=== PATIENT | male | born 1970 | race Two or more races ===

== ENCOUNTER 2017-04-04 11:49 | Emergency (ER) | payer MEDICARE ==
[2017-04-04] MEDS ORDERED: Calcium Gluconate INJ* 2 GM in NS 0.9% 100 ML* 100 ML IVPB ONE (12:10)
[2017-04-04] MEDS ORDERED: NS 0.9% 250 ML* 250 ML IV ONE ×2 (12:10→12:24)
[2017-04-04 12:20] LABS: ABS Basophils 0.1 10^3/ul (0-0.2); ABS Eosinophils 0.1 10^3/ul (0-0.6); ABS Lymphocytes 1.4 10^3/ul (1.0-4.8); ABS Neutrophils 8.8 10^3/ul (1.5-7.7); ABS Nucleated RBC 0.2 10^3/ul; Eosinophil % 1.2 % (0-6); Hematocrit 45 % (42-52); Lymphocyte % 12.3 % (25-47); Mean Corpuscular HGB Conc 34 g/dl (31-36); Mean Corpuscular Hemoglobin 30 pg (27-31); Mean Corpuscular Volume 91 fL (80-94); Mean Platelet Volume 10 um3 (7.4-10.4); Nucleated Red Blood Cells % 1.5; Platelet Count 399 10^3/ul (150-450); Red Blood Count 4.94 10^6/ul (4.0-5.4); Red Cell Distribution Width 19 % (10.5-15); White Blood Count 11.5 10^3/ul (3.5-10.8)
[2017-04-04] MEDS: Albuterol 2.5 MG/3 ML NEB.SOL* (0.083%) INH SCH ×2 (12:24→12:25)
[2017-04-04 12:31] LABS: EGFR Non-African American 6.3 (>60)
--- NOTE | 2017-04-04 13:04 | RAD ---
Indication: Weakness, altered mental status. Jaundice. Suspected sepsis. Comparison: No relevant prior exams available on the [facility] PACS for comparison. Technique: Noncontrast CT vertex of skull through foramen magnum. Report: Infiltrative RIGHT parietal scalp hematoma at the vertex. The sulci, ventricles, and basal cisterns are normal for age. Argueta matter white matter differentiation is preserved without evidence for edema. No intra or extra axial hemorrhage is detected. Unremarkable visualized orbital contents. Negative for calvarial or skull base fracture. The visualized paranasal sinuses and mastoid air spaces are clear. IMPRESSION: 1. Small infiltrative RIGHT parietal scalp hematoma. 2. Negative for calvarial or skull base fracture or CT evidence for traumatic brain injury. 3. No acute intracranial process evident.
--- NOTE | 2017-04-04 13:29 | RAD ---
CLINICAL HISTORY: Jaundice, sepsis COMPARISON: None TECHNIQUE: Multiple contiguous axial CT scans were obtained of the abdomen and pelvis, without intravenous contrast enhancement. Coronal and sagittal multiplanar reformations are submitted for review. Oral contrast was not administered. FINDINGS: The study is limited by the lack of intravenous contrast. This limits evaluation of the solid organs and vasculature. LUNG BASES: The lung bases are clear. LIVER: The liver is homogeneously enlarged. BILE DUCTS: There is no intrahepatic or extrahepatic biliary dilatation. GALLBLADDER: The gallbladder is normal, without pericholecystic inflammatory change. PANCREAS: The pancreas is normal, without mass or ductal dilatation. SPLEEN: Normal in size and appearance. UPPER GI TRACT: Evaluation of the gastrointestinal tract is limited by incomplete gastric distention. The upper GI tract is unremarkable. SMALL BOWEL AND MESENTERY: The small bowel is normal in contour, course, and caliber. There is no obstruction or dilatation. COLON: The colon is normal in contour, course, caliber. There is no pericolonic inflammatory change. ADRENALS: Normal bilaterally. KIDNEYS: The kidneys are atrophic with vascular calcifications. BLADDER: The bladder is collapsed. There is diffuse bladder wall thickening. This may be artifactually accentuated by incomplete distention of the bladder. PELVIC ORGANS: The prostate gland is normal. The seminal vesicles are symmetric. AORTA: There is calcific atherosclerotic disease of the abdominal aorta and its branches, without aneurysmal dilatation IVC: Unremarkable LYMPH NODES: There is no lymphadenopathy by size criteria. ABDOMINAL WALL: There is diffuse subcutaneous edema. BONES AND SOFT TISSUES: There are mild diffuse degenerative changes. OTHER: There is a moderate amount of ascites IMPRESSION: 1. HEPATOMEGALY. 2. ASCITES. 3. DIFFUSE SUBCUTANEOUS EDEMA. 4. BLADDER WALL THICKENING WHICH MAY BE ARTIFACTUALLY ACCENTUATED BY INCOMPLETE DISTENTION OF THE BLADDER. 5. ATHEROSCLEROSIS.
--- NOTE | 2017-04-04 13:47 | RAD ---
HISTORY: Jaundice, sepsis COMPARISONS: CT dated April 04, 2012 TECHNIQUE: Multiple transverse and longitudinal ultrasound images were obtained of the right upper quadrant of the abdomen using grayscale, color Doppler, and spectral Doppler imaging. FINDINGS: LIVER: The liver is homogeneously enlarged measuring 20 cm in long axis. There are no focal hepatic parenchymal masses. There is bidirectional flow within the hepatic veins. There is bidirectional pulsatile flow within the main portal vein. BILIARY TREE: There is no intrahepatic or extrahepatic biliary dilatation. The common duct measures 0.4 cm. GALLBLADDER: There are small nonshadowing echogenic foci consistent with that are polyps measuring up to 0.3 cm in size. There is no sonographic Schofield sign. PANCREAS: The head of the pancreas is unremarkable. The tail of the pancreas is not well visualized secondary to overlying bowel gas. RIGHT KIDNEY: The right kidney is atrophic. There is no hydronephrosis or nephrolithiasis. The right kidney measures 8.7 x 5.1 x 45.2 cm. AORTA AND IVC: The aorta and IVC are unremarkable. FLUID: There is a moderate amount ascites. OTHER FINDINGS: None. IMPRESSION: 1. HEPATOMEGALY. 2. THERE IS BIDIRECTIONAL FLOW WITHIN THE PORTAL WHICH MAY INDICATE EARLY PORTAL HYPERTENSION. 3. MODERATE ASCITES. 4. ATROPHIC RIGHT KIDNEY.
[2017-04-04] MEDS ORDERED: Piperacillin/Tazobac ADVAN(*) 3.375 GM in NS 0.9% 100 ML* 100 ML IVPB ONE (14:00)
--- NOTE | 2017-04-04 14:35 | ED ---
Ginna Wolfe Julia, scribed for Aidan Drummond MD on 04/04/17 at 1220 . Complex/Multi-Sys Presentation - HPI Summary HPI Summary: This patient is a 46 year old M BIBA to [facility] with a chief complaint of fatigue and weakness post dialysis this morning. Patient reports diarrhea,vomiting, and leg spasms. Patient denies abdominal and chest pain. Patient has been recently ill with influenza symptoms for the past few days. Patient states that he is not normally jaundiced. - History Of Current Complaint Time Seen by Provider: 04/04/17 11:56 Hx Obtained From: Patient Onset/Duration: Lasting Hours Timing: Constant Associated Signs And Symptoms: Positive: Other - fatigue, diarrhea, and vomiting , and leg spasms Related History: Recent Illness - Allergies/Home Medications Allergies/Adverse Reactions: Allergies Allergy/AdvReac Type Severity Reaction Status Date / Time Doxercalciferol Allergy Airway Verified 10/31/15 07:02 [From Hectorol] Obstruction Ethanol [From Hectorol] Allergy Airway Verified 10/31/15 07:02 Obstruction Morphine Allergy Nausea And Verified 10/31/15 07:01 Vomiting Red Dye [From Hectorol] Allergy Airway Verified 10/31/15 07:02 Obstruction Yellow Dye [From Hectorol] Allergy Airway Verified 10/31/15 07:02 Obstruction Home Medications: Home Medications B-Complex W/ C-Zn & Folic Acid [Dialyvite 800/Zinc] 1 tab PO DAILY 04/04/17 [ History Confirmed 04/04/17] Calcitriol CAP* [Rocaltrol CAP*] 0.75 mcg PO DAILY 04/04/17 [History Confirmed 04/04/17] Cinacalcet TAB* [Sensipar TAB*] 90 mg PO DAILY 04/04/17 [History Confirmed 04/04] Ferric Citrate TAB(NF) 420 mg PO AC 04/04/17 [History Confirmed 04/04/17] Insulin GLARGINE(*) [Lantus(*)] 10 units SUBCUT QAM 04/04/17 [History Confirmed 04/04/17] Lidocaine/PRILOCAINE* [Emla*] 1 applic TOPICAL ONCE 04/04/17 [History Confirmed 04/04/17] Linagliptin (NF) [Tradjenta (NF)] 5 mg PO DAILY 04/04/17 [History Confirmed 08/15] Metoprolol Tartrate TAB* [Lopressor TAB*] 50 mg PO BID 04/04/17 [History Confirmed 04/04/17] Sevelamer TAB* [Renvela TAB*] 2,400 mg PO AC 04/04/17 [History Confirmed ] Sodium Polystyrene ORAL.BEVERLY* [Kayexalate ORAL.BEVERLY*] 15 gm PO SEE INSTRUCTIONS [History Confirmed 04/04/17] glyBURIDE TAB* [Diabeta TAB*] 1.25 mg PO DAILY 04/04/17 [History Confirmed 04/04] rOPINIRole TAB* [Requip TAB*] 0.5 mg PO BEDTIME 04/04/17 [History Confirmed 08/15] PMH/Surg Hx/FS Hx/Imm Hx Endocrine/Hematology History: Reports: Hx Diabetes Denies: Hx Anticoagulant Therapy, Hx Thyroid Disease Cardiovascular History: Reports: Hx Hypertension, Other Cardiovascular Problems/ Disorders - INSERTION TESIO CATH Denies: Hx Congestive Heart Failure, Hx Deep Vein Thrombosis, Hx Myocardial Infarction, Hx Pacemaker/ICD Respiratory History: Denies: Hx Asthma, Hx Chronic Obstructive Pulmonary Disease (COPD), Hx Lung Cancer, Hx Pneumonia, Hx Pulmonary Embolism GI History: Denies: Hx Gall Bladder Disease, Hx Gastrointestinal Bleed, Hx Ulcer, Hx Urosepsis History: Reports: Hx Renal Disease Denies: Hx Kidney Stones Sensory History: Reports: Hx Contacts or Glasses Opthamlomology History: Reports: Hx Contacts or Glasses Neurological History: Denies: Hx Dementia, Hx Migraine, Hx Seizures, Hx Transient Ischemic Attacks (TIA) Psychiatric History: Denies: Hx Anxiety, Hx Depression, Hx Schizophrenia, Hx Bipolar Disorder - Surgical History Surgery Procedure, Year, and Place: Groin surgery for "bacteria" - Family History Known Family History: Positive: Hypertension, Diabetes - Social History Alcohol Use: Rare Substance Use Type: Reports: None Hx Tobacco Use: Yes Smoking Status (MU): Current Every Day Smoker Type: Cigarettes Amount Used/How Often: 6/day Length of Time of Smoking/Using Tobacco: 20 years Review of Systems Positive: Fatigue - generalized weakness. Negative: Fever, Chills Negative: Erythema Negative: Sore Throat Negative: Chest Pain Negative: Shortness Of Breath, Cough Positive: Vomiting, Diarrhea. Negative: Abdominal Pain, Nausea Negative: dysuria, hematuria Positive: Other - leg spasms. Negative: Myalgia, Edema Negative: Rash Neurological: Other - negative - dizziness All Other Systems Reviewed And Are Negative: Yes Physical Exam - Summary Physical Exam Summary: Constitutional: Well-developed, Well-nourished, Alert. (-) Distressed Skin: Warm, Dry HENT: Normocephalic; Atraumatic Eyes: scleral icterus Neck: Musculoskeletal ROM normal neck. (-) JVD, (-) Stridor, (-) Tracheal deviation Cardio: Rhythm regular, rate normal, Heart sounds normal; Intact distal pulses; The pedal pulses are 2+ and symmetric. Radial pulses are 2+ and symmetric. (-) Murmur Pulmonary/Chest wall: Effort normal. (-) Respiratory distress, (-) Wheezes, (-) Rales Abd: Soft, (-) Tenderness, (-) Distension, (-) Guarding, (-) Rebound Musculoskeletal: (-) Edema Lymph: (-) Cervical adenopathy Neuro: Alert, Oriented x3 Psych: Mood and affect normal, sluggish response Triage Information Reviewed: Yes Vital Signs On Initial Exam: Initial Vitals BP 88/71 04/04/17 12:00 Vital Signs Reviewed: Yes Diagnostics - Vital Signs Vital Signs Temp Pulse Resp BP Pulse Ox 04/04/17 12:10 35.8 C 52 15 88/71 98 04/04/17 12:01 52 21 94 04/04/17 12:00 - Laboratory Lab Results: Lab Results 04/04/17 04/04/17 04/04/17 Range/Units 12:07 12:07 12:07 WBC 11.5 H (3.5-10.8) 10^3/ul RBC 4.94 (4.0-5.4) 10^6/ul Hgb 15.0 (14.0-18.0) g/dl Hct 45 (42-52) % MCV 91 (80-94) fL MCH 30 (27-31) pg MCHC 34 (31-36) g/dl RDW 19 H (10.5-15) % Plt Count 399 (150-450) 10^3/ul MPV 10 (7.4-10.4) um3 Neut % (Auto) 76.7 (38-83) % Lymph % (Auto) 12.3 L (25-47) % Freeborn % (Auto) 9.1 H (1-9) % Eos % (Auto) 1.2 (0-6) % Baso % (Auto) 0.7 (0-2) % Absolute Neuts (auto) 8.8 H (1.5-7.7) 10^3/ul Absolute Lymphs (auto) 1.4 (1.0-4.8) 10^3/ul Absolute Monos (auto) 1.0 H (0-0.8) 10^3/ul Absolute Eos (auto) 0.1 (0-0.6) 10^3/ul Absolute Basos (auto) 0.1 (0-0.2) 10^3/ul Absolute Nucleated RBC 0.2 10^3/ul Nucleated RBC % 1.5 VBG pH (7.33-7.43) VBG pCO2 (41-51) mmHg VBG pO2 (35-45) mmHg VBG HCO3 (24-28) mmol/L VBG O2 Saturation (70-80) % VBG Base Excess (0-4) Sodium 131 L (133-145) mmol/L Potassium 5.6 H (3.5-5.0) mmol/L Chloride 85 L (101-111) mmol/L Carbon Dioxide 26 (22-32) mmol/L Anion Gap 20 H (2-11) mmol/L BUN 84 H (6-24) mg/dL Creatinine 9.12 H (0.67-1.17) mg/dL Est GFR ( Amer) 8.1 (>60) Est GFR (Non-Af Amer) 6.3 (>60) BUN/Creatinine Ratio 9.2 (8-20) Glucose 127 H (70-100) mg/dL POC Glucose (mg/dL) (70-100) mg/dL Lactic Acid 1.4 (0.5-2.0) mmol/L Calcium 8.4 L (8.6-10.3) mg/dL Magnesium Pending Total Bilirubin 11.80 H (0.2-1.0) mg/dL AST 47 H (13-39) U/L ALT 39 (7-52) U/L Alkaline Phosphatase 115 H (34-104) U/L Troponin I 0.14 H* (<0.04) ng/mL C-Reactive Protein 159.26 H (< 5.00) mg/L Total Protein 8.1 (6.4-8.9) g/dL Albumin 3.3 (3.2-5.2) g/dL Globulin 4.8 H (2-4) g/dL Albumin/Globulin Ratio 0.7 L (1-3) TSH 5.24 (0.34-5.60) mcIU/mL Salicylates Pending Acetaminophen Pending Serum Alcohol < 10 (<10) mg/dL Influenza A (Rapid) (Negative) Influenza B (Rapid) (Negative) 04/04/17 04/04/17 04/04/17 Range/Units 12:30 12:33 14:06 WBC (3.5-10.8) 10^3/ul RBC (4.0-5.4) 10^6/ul Hgb (14.0-18.0) g/dl Hct (42-52) % MCV (80-94) fL MCH (27-31) pg MCHC (31-36) g/dl RDW (10.5-15) % Plt Count (150-450) 10^3/ul MPV (7.4-10.4) um3 Neut % (Auto) (38-83) % Lymph % (Auto) (25-47) % Freeborn % (Auto) (1-9) % Eos % (Auto) (0-6) % Baso % (Auto) (0-2) % Absolute Neuts (auto) (1.5-7.7) 10^3/ul Absolute Lymphs (auto) (1.0-4.8) 10^3/ul Absolute Monos (auto) (0-0.8) 10^3/ul Absolute Eos (auto) (0-0.6) 10^3/ul Absolute Basos (auto) (0-0.2) 10^3/ul Absolute Nucleated RBC 10^3/ul Nucleated RBC % VBG pH 7.37 (7.33-7.43) VBG pCO2 47 (41-51) mmHg VBG pO2 32 L (35-45) mmHg VBG HCO3 24.7 (24-28) mmol/L VBG O2 Saturation 60.1 L (70-80) % VBG Base Excess 1.2 (0-4) Sodium (133-145) mmol/L Potassium (3.5-5.0) mmol/L Chloride (101-111) mmol/L Carbon Dioxide (22-32) mmol/L Anion Gap (2-11) mmol/L BUN (6-24) mg/dL Creatinine (0.67-1.17) mg/dL Est GFR ( Amer) (>60) Est GFR (Non-Af Amer) (>60) BUN/Creatinine Ratio (8-20) Glucose (70-100) mg/dL POC Glucose (mg/dL) 174 H (70-100) mg/dL Lactic Acid (0.5-2.0) mmol/L Calcium (8.6-10.3) mg/dL Magnesium Total Bilirubin (0.2-1.0) mg/dL AST (13-39) U/L ALT (7-52) U/L Alkaline Phosphatase (34-104) U/L Troponin I (<0.04) ng/mL C-Reactive Protein (< 5.00) mg/L Total Protein (6.4-8.9) g/dL Albumin (3.2-5.2) g/dL Globulin (2-4) g/dL Albumin/Globulin Ratio (1-3) TSH (0.34-5.60) mcIU/mL Salicylates Acetaminophen Serum Alcohol (<10) mg/dL Influenza A (Rapid) Negative (Negative) Influenza B (Rapid) Negative (Negative) Result Diagrams: 04/04/17 12:07 04/04/17 12:07 Lab Statement: Any lab studies that have been ordered have been reviewed, and results considered in the medical decision making process. - CT Brain CT Interpretation Completed By: Radiologist - 1. Small infiltrative RIGHT parietal scalp hematoma. 2. Negative for calvarial or skull base fracture or CT evidence for traumatic brain injury. 3. No acute intracranial process evident. ED Physician has reviewed this report. A/P CT Interpretation Completed By: Radiologist - 1. HEPATOMEGALY. 2. ASCITES. 3. DIFFUSE SUBCUTANEOUS EDEMA. 4. BLADDER WALL THICKENING WHICH MAY BE ARTIFACTUALLY ACCENTUATED BY INCOMPLETE DISTENTION OF THE BLADDER. 5. ATHEROSCLEROSIS. ED Physician has reviewed this report. - EKG 11:36 Cardiac Rate: NL, Bradycardia EKG Rhythm: Sinus Bradycardia - at 53 BPM EKG Interpretation: reveals no STEMI present - Additional Comments Diagnostic Additional Comments: Gallbladder US reveals: 1. HEPATOMEGALY. 2. THERE IS BIDIRECTIONAL FLOW WITHIN THE PORTAL WHICH MAY INDICATE EARLY PORTAL HYPERTENSION. 3. MODERATE ASCITES. 4. ATROPHIC RIGHT KIDNEY. ED Physician has reviewed this report. Re-Evaluation - Re-Evaluation 1st Re-Evaluation Time: 13:36 Comment: Patients potassiums levels were reviewed, revealing a 5.3 at 11:00 during dialysis. Complex Multi-Symp Course/Dx Assessment/Plan: Patient care with Dr. Garcia, research professional, was discussed at 13:55 . They are unavailable for ERCP until 04/06/17 they suggest transfer to [facility] for ERCP. Patient care with Dr. Zabala, internal medicine at [facility], was discussed at 14:19. They are accepting this patient. No real tenderness, but given the altered mental status, elevated white count, and significant jaundice I am considering sepsis/cholangitis as a leading diagnosis. Responded well to [address] Triplett involved by teleconference regarding fluids and workup and management plan. - Diagnoses Provider Diagnoses: Altered mental status, Sepsis, Obstructive jaundice, Cholangitis - Physician Notifications Instructed by Provider To: Transfer - Critical Care Time Critical Care Time: 75-104 min - 100 minutes Discharge - Discharge Plan Condition: Fair Disposition: TRANS HIGHER LVL OF CARE FAC Referrals: Tru Mancini MD [Primary Care Provider] - The documentation as recorded by the Ginna crawford Julia accurately reflects the service I personally performed and the decisions made by me, Aidan Drummond MD.
[2017-04-04 19:53] VITALS: BP 00/0
--- NOTE | 2017-04-04 22:16 | ED ---
Ginna Wolfe Julia, scribed for Aidan Drummond MD on 04/04/17 at 1649 . Re-Evaluation - Re-Evaluation 1st Re-Evaluation Time: 13:36 Comment: Patients potassiums levels were reviewed, revealing a 5.3 at 11:00 during dialysis. 2nd Re-Evaluation Time: 16:45 Change: Unchanged Comment: Patient's abdomen is non-tender. Patient is answering questions Course/Dx - Diagnoses Provider Diagnoses: Altered mental status, Sepsis, Obstructive jaundice, Cholangitis - Provider Notifications Instructed by Provider To: Transfer - Critical Care Time Critical Care Time: 75-104 min - 100 minutes The documentation as recorded by the tonyibGinna york Julia accurately reflects the service I personally performed and the decisions made by , Aidan Drummond MD.
== END 2017-04-04 19:21 | disposition short-term general hospital (02) ==
LOC: ED 11:49
DX: R41.82 Altered mental status, unspecified (principal); A41.9 Sepsis, unspecified organism; K83.1 Obstruction of bile duct; K83.0 Cholangitis
CPT/HCPCS: 36415; 70450; 74176; 76705; 80053; 80320; 80329; 82140; 82803; 83605; 83735; 84443; 84484; 85025; 86140; 87040; 87502; 93005; 96365; 99285; G0480; J0610; J2543

== ENCOUNTER 2017-08-07 13:19 | Emergency (ER) | payer MEDICARE ==
[2017-08-07 14:42] VITALS: BP 172/91
== END 2017-08-07 16:02 | disposition left against medical advice (07) ==
LOC: ED 13:19
DX: Z53.21 Procedure and treatment not carried out due to patient leaving prior to being seen by health care provider (principal)

== ENCOUNTER 2018-02-24 13:08 | Emergency (ER) | payer MEDICARE ==
[2018-02-24] MEDS ORDERED: Tranexamic Acid 1,000 MG/10 ML SDV IV ONE (14:03)
[2018-02-24] MEDS ORDERED: Thrombin 20,000 UNITS* KIT - spray for topical use - TOPICAL ONE (15:01)
--- NOTE | 2018-02-24 15:17 | ED ---
Skin Complaint - HPI Summary HPI Summary: 47 year old man was referred to ED by dialysis center to assess bleeding at the dialysis AV fistula site after completing dialysis yesterday. Patient states yesterday after completing dialysis he had to apply 30 minutes of pressure to the area to slow the bleeding. Later yesterday evening the bleeding became worse and he states it has since been constantly "oozing." Patient states that regardless of pressure dressing he is unable to get the bleeding to stop. Patient was given a clamp from the dialysis center and told to follow up here. Patient is currently on anticoagulant therapy. Patient denies N/V, dizziness, weakness, numbness, or tingling. - History of Current Complaint Chief Complaint: EDGeneral Time Seen by Provider: 02/24/18 13:22 Stated Complaint: RIGHT ARM BLEEDNG Hx Obtained From: Patient Onset/Duration: Started Days Ago Timing: Lasting Days Onset Severity: Mild Current Severity: Mild Pain Intensity: 0 Pain Scale Used: 0-10 Numeric Skin Location: Discrete Aggravating Symptom(s): Nothing Alleviating Symptom(s): Nothing Associated Signs & Symptoms: Negative Related History: Diabetes, Other: - dialysis yesterday, anticoagulant therapy. - Additional Pertinent History Primary Care Physician: [id number] - Allergy/Home Medications Allergies/Adverse Reactions: Allergies Allergy/AdvReac Type Severity Reaction Status Date / Time doxercalciferol Allergy Airway Verified 02/24/18 15:38 Obstruction ethyl alcohol Allergy Airway Verified 02/24/18 15:38 Obstruction morphine Allergy Nausea And Verified 02/24/18 15:38 Vomiting red dye Allergy Airway Verified 02/24/18 15:38 Obstruction yellow dye Allergy Airway Verified 02/24/18 15:38 Obstruction PMH/Surg Hx/FS Hx/Imm Hx Endocrine/Hematology History: Reports: Hx Diabetes Denies: Hx Anticoagulant Therapy, Hx Thyroid Disease Cardiovascular History: Reports: Hx Hypertension, Other Cardiovascular Problems/ Disorders - INSERTION TESIO CATH Denies: Hx Congestive Heart Failure, Hx Deep Vein Thrombosis, Hx Myocardial Infarction, Hx Pacemaker/ICD Respiratory History: Denies: Hx Asthma, Hx Chronic Obstructive Pulmonary Disease (COPD), Hx Lung Cancer, Hx Pneumonia, Hx Pulmonary Embolism GI History: Denies: Hx Gall Bladder Disease, Hx Gastrointestinal Bleed, Hx Ulcer, Hx Urosepsis History: Reports: Hx Renal Disease Denies: Hx Kidney Stones Sensory History: Reports: Hx Contacts or Glasses Opthamlomology History: Reports: Hx Contacts or Glasses Neurological History: Denies: Hx Dementia, Hx Migraine, Hx Seizures, Hx Transient Ischemic Attacks (TIA) Psychiatric History: Denies: Hx Anxiety, Hx Depression, Hx Schizophrenia, Hx Bipolar Disorder - Surgical History Surgery Procedure, Year, and Place: Groin surgery for "bacteria" Infectious Disease History: No Infectious Disease History: Denies: Traveled Outside the [place] in Last 30 Days - Family History Known Family History: Positive: None, Hypertension, Diabetes - Social History Alcohol Use: Rare Substance Use Type: Reports: None Hx Tobacco Use: Yes Smoking Status (MU): Current Every Day Smoker Type: Cigarettes Amount Used/How Often: 6/day Length of Time of Smoking/Using Tobacco: 20 years Review of Systems Negative: Fever, Chills, Fatigue, Skin Diaphoresis Negative: Palpitations, Chest Pain Negative: Shortness Of Breath Negative: Abdominal Pain, Vomiting, Nausea Genitourinary: Negative Positive: Other - AV fistula bleeding. Neurological: Negative All Other Systems Reviewed And Are Negative: Yes Physical Exam Vital Signs On Initial Exam: Initial Vitals Temp Pulse Resp BP Pulse Ox 97.0 F 75 16 00/00 100 02/24/18 13:11 02/24/18 13:11 02/24/18 13:11 02/24/18 13:11 02/24/18 13:11 Appearance: Positive: No Pain Distress, Ill-Appearing Skin: Positive: Dry, Cold, Other - AV fistula present on the Right upper arm. Small puncture wound present in the fistula that is currently bleeding. Eyes: Positive: JAYLEN ENT: Positive: Hearing grossly normal Neck: Positive: Supple, Nontender Respiratory/Lung Sounds: Positive: Clear to Auscultation, Breath Sounds Present Cardiovascular: Positive: RRR, Pulses are Symmetrical in both Upper and Lower Extremities, Other - capillary refill <2 seconds Abdomen Description: Positive: Nontender, No Organomegaly Bowel Sounds: Positive: Present Neurological: Positive: Other - Sensation in tact in distal upper extremeties. Diagnostics - Vital Signs Vital Signs Temp Pulse Resp BP Pulse Ox 02/24/18 13:47 160/100 02/24/18 13:11 97.0 F 75 16 00/00 100 - Laboratory Lab Statement: Any lab studies that have been ordered have been reviewed, and results considered in the medical decision making process. Course/Dx - Course Course Of Treatment: 47 year old ill appearing male presents to the ED for evaluation of bleeding after dialysis yesterday that has not stopped. Patient states regardless of dressing or pressure he is unable to stop the bleeding. Patient was referred to ED by dialysis center. Physical examination revealed an AV fistula in the right upper arm with a small needle puncture that is currently bleeding. A dressing of surgicel soaked in TXA was applied and pressure was applied with Coban. The dressing was rechecked in 30 minutes and the patient had bleed through the dressing. A dressing of surgifoam soaked in reconstituted thrombin powder was reapplied to the area and pressure was applied with coban. The wound was rechecked in 30 minutes. Bleeding remains. 3 sutures placed with good effect. Bleeding controlled. Again, TXA soaked surgicel applied and yuli and coban wrapped. 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
[2018-02-24] MEDS ORDERED: Gelfoam 12-7 ADSORBABL SPONGE* 1 EA SPONGE TOPICAL ONE (15:38)
[2018-02-24] MEDS ORDERED: Thrombin 5,000 UNITS* 1 APPLIC KIT - topical use - TOPICAL ONE (16:00)
[2018-02-24 17:10] VITALS: BP 171/78
== END 2018-02-24 17:15 | disposition home or self-care (01) ==
LOC: ED 13:08
DX: T82.838A Hemorrhage due to vascular prosthetic devices, implants and grafts, initial encounter (principal); Z79.01 Long term (current) use of anticoagulants; Z88.5 Allergy status to narcotic agent; Z88.8 Allergy status to other drugs, medicaments and biological substances; F17.210 Nicotine dependence, cigarettes, uncomplicated
CPT/HCPCS: 96374; 99282; A9270-GY

== ENCOUNTER 2019-02-17 07:22 | Emergency (ER) | payer MEDICARE ==
[2019-02-17 07:51] LABS: ABS Basophils 0.1 10^3/ul (0-0.2); ABS Eosinophils 0.4 10^3/ul (0-0.6); ABS Lymphocytes 1.5 10^3/ul (1.0-4.8); ABS Monocytes 0.5 10^3/ul (0-0.8); ABS Neutrophils 7.5 10^3/ul (1.5-7.7); Eosinophil % 4.1 %; Hematocrit 39 % (42-52); Hemoglobin 13.4 g/dL (14.0-18.0); Lymphocyte % 14.9 %; Mean Corpuscular HGB Conc 34 g/dL (31-36); Mean Corpuscular Hemoglobin 30 pg (27-31); Mean Corpuscular Volume 87 fL (80-94); Mean Platelet Volume 9.7 fL (7.4-10.4); Platelet Count 222 10^3/uL (150-450); Red Blood Count 4.51 10^6 /uL (4.18-5.48); Red Cell Distribution Width 15 % (10-15)
[2019-02-17 08:17] LABS: ALT 15 U/L (7-52); AST 16 U/L (13-39); Albumin 3.7 g/dL (3.2-5.2); Albumin/Globulin Ratio 0.7 (1-3); Alkaline Phosphatase 105 U/L (34-104); BUN/Creatinine Ratio 6.7 (8-20); Blood Urea Nitrogen 64 mg/dL (6-24); CO2 Carbon Dioxide 30 mmol/L (22-32); Chloride 90 mmol/L (101-111); EGFR African American 7.1 (>60); EGFR Non-African American 5.9 (>60); Globulin 5.1 g/dL (2-4); Glucose 122 mg/dL (70-100); Sodium 137 mmol/L (135-145); Total Protein 8.8 g/dL (6.4-8.9)
[2019-02-17 08:29] LABS: Anion Gap 17 mmol/L (2-11); Potassium 5.4 mmol/L (3.5-5.0)
[2019-02-17 08:32] LABS: Troponin I 0.07 ng/mL (<0.03)
--- NOTE | 2019-02-17 08:53 | ED ---
Syncope/Near Syncope - HPI Summary HPI Summary: 48 year old M w hx ESRD (MWF) DM, HTN who complains of near syncope during his dialysis session this morning at 0700 (symptoms since resolved). He states that within a few minutes of starting dialysis, he experienced SOB, dimmed hearing, blurred vision, fatigue, light-headedness, and a near syncopal sensation. Chest pain is denied. Currently, patient states that he feels "a little better" and notes resolution of blurred vision and hearing loss. He states that he has had similar episodes previously which he attributes to low blood sugar and side effects of blood thinner medications. However, he states that this episode was more severe. 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 Patient reports being on dialysis for around 3 years now for which he has had a chest port for 5 months. He has had a fistula on his right bicep for 3 years and has a history of HTN and diabetes but does not take insulin. Patient is on a MWF schedule for dialysis. Italian Tutor is Dr. Triplett. The patient rates the pain 0/10 in severity. - History Of Current Complaint Chief Complaint: EDDizziness Time Seen by Provider: 02/17/19 07:30 Hx Obtained From: Patient Onset/Duration: Sudden Onset, Lasting Minutes, Resolved Timing: Minutes Activity At Onset: Other - Dialysis Aggravating Factor(s): Nothing Alleviating Factor(s): Nothing Associated Signs And Symptoms: Shortness Of Breath, Other - blurred vision, fatigue, light-headedness, and a near syncopal sensation is reported; no chest pain - Allergies/Home Medications Allergies/Adverse Reactions: Allergies Allergy/AdvReac Type Severity Reaction Status Date / Time doxercalciferol Allergy Airway Verified 02/24/18 15:38 Obstruction ethyl alcohol Allergy Airway Verified 02/24/18 15:38 Obstruction morphine Allergy Nausea And Verified 02/24/18 15:38 Vomiting red dye Allergy Airway Verified 02/24/18 15:38 Obstruction yellow dye Allergy Airway Verified 02/24/18 15:38 Obstruction PMH/Surg Hx/FS Hx/Imm Hx Endocrine/Hematology History: Reports: Hx Diabetes Denies: Hx Anticoagulant Therapy, Hx Thyroid Disease Cardiovascular History: Reports: Hx Hypertension, Other Cardiovascular Problems/ Disorders - INSERTION TESIO CATH /DIALYSIS PT. Denies: Hx Congestive Heart Failure, Hx Deep Vein Thrombosis, Hx Myocardial Infarction, Hx Pacemaker/ICD Respiratory History: Denies: Hx Asthma, Hx Chronic Obstructive Pulmonary Disease (COPD), Hx Lung Cancer, Hx Pneumonia, Hx Pulmonary Embolism GI History: Denies: Hx Gall Bladder Disease, Hx Gastrointestinal Bleed, Hx Ulcer, Hx Urosepsis History: Reports: Hx Renal Disease Denies: Hx Kidney Stones Sensory History: Reports: Hx Contacts or Glasses Opthamlomology History: Reports: Hx Contacts or Glasses Neurological History: Denies: Hx Dementia, Hx Migraine, Hx Seizures, Hx Transient Ischemic Attacks (TIA) Psychiatric History: Denies: Hx Anxiety, Hx Depression, Hx Schizophrenia, Hx Bipolar Disorder - Surgical History Surgery Procedure, Year, and Place: Groin surgery for "bacteria" Infectious Disease History: No Infectious Disease History: Denies: Traveled Outside the [place] in Last 30 Days - Family History Known Family History: Positive: Hypertension, Diabetes - Social History Alcohol Use: None Substance Use Type: Reports: None Hx Tobacco Use: Yes Smoking Status (MU): Heavy Every Day Tobacco Smoker Type: Cigarettes Amount Used/How Often: 6/day Length of Time of Smoking/Using Tobacco: 20 years Review of Systems Positive: Fatigue - since resolved Eyes: Other Positive: Blurred Vision - since resolved Positive: Other - diminished hearing Negative: Chest Pain Positive: Shortness Of Breath Neurological: Other - positive - light-headedness Positive: Syncope - near syncope, since resolved All Other Systems Reviewed And Are Negative: Yes Physical Exam - Summary Physical Exam Summary: Constitutional: Well-developed, Well-nourished, Alert. (-) Distressed Skin: Warm, Dry HENT: Normocephalic; Atraumatic Eyes: Conjunctiva normal Neck: Musculoskeletal ROM normal neck. (-) JVD, (-) Stridor, (-) Nuchal rigidity Cardio: Rhythm regular, rate normal, Heart sounds normal; Palpable left brachial pulse, bilateral Doppler signal at radial pulses. (-) Murmur Pulmonary/Chest wall: Effort normal. (-) Respiratory distress, (-) Wheezes, (-) Rales Abd: Soft, (-) tenderness, (-) Distension, (-) Guarding, (-) Rebound Musculoskeletal: (-) Edema, AV fistula of right arm with good thrill Lymph: (-) Cervical adenopathy Neuro: Alert, Oriented x3, CN 2-12 grossly intact. Triage Information Reviewed: Yes Vital Signs On Initial Exam: Initial Vitals Temp Pulse Resp BP Pulse Ox 97 F 62 16 133/81 99 02/17/19 07:27 02/17/19 07:27 02/17/19 07:27 02/17/19 07:27 02/17/19 07:27 Vital Signs Reviewed: Yes Procedures - Sedation Patient Received Moderate/Deep Sedation with Procedure: No Diagnostics - Vital Signs Vital Signs Temp Pulse Resp BP Pulse Ox 02/17/19 07:27 97 F 62 16 133/81 99 - Laboratory Lab Results: Lab Results 02/17/19 02/17/19 02/17/19 Range/Units 07:39 07:39 07:39 WBC 10.0 (3.5-10.8) 10^3/uL RBC 4.51 (4.18-5.48) 10^6 /uL Hgb 13.4 L (14.0-18.0) g/dL Hct 39 L (42-52) % MCV 87 (80-94) fL MCH 30 (27-31) pg MCHC 34 (31-36) g/dL RDW 15 (10-15) % Plt Count 222 (150-450) 10^3/uL MPV 9.7 (7.4-10.4) fL Neut % (Auto) 74.9 % Lymph % (Auto) 14.9 % [place] % (Auto) 5.4 % Eos % (Auto) 4.1 % Baso % (Auto) 0.7 % Absolute Neuts (auto) 7.5 (1.5-7.7) 10^3/ul Absolute Lymphs (auto) 1.5 (1.0-4.8) 10^3/ul Absolute Monos (auto) 0.5 (0-0.8) 10^3/ul Absolute Eos (auto) 0.4 (0-0.6) 10^3/ul Absolute Basos (auto) 0.1 (0-0.2) 10^3/ul Absolute Nucleated RBC 0.0 10^3/ul Nucleated RBC % 0.0 Sodium 137 (135-145) mmol/L Potassium 5.4 H (3.5-5.0) mmol/L Chloride 90 L (101-111) mmol/L Carbon Dioxide 30 (22-32) mmol/L Anion Gap 17 H (2-11) mmol/L BUN 64 H (6-24) mg/dL Creatinine 9.59 H (0.67-1.17) mg/dL Est GFR ( Amer) 7.1 (>60) Est GFR (Non-Af Amer) 5.9 (>60) BUN/Creatinine Ratio 6.7 L (8-20) Glucose 122 H (70-100) mg/dL Calcium 9.0 (8.6-10.3) mg/dL Total Bilirubin 1.40 H (0.2-1.0) mg/dL AST 16 (13-39) U/L ALT 15 (7-52) U/L Alkaline Phosphatase 105 H (34-104) U/L Troponin I 0.07 H* (<0.03) ng/mL B-Natriuretic Peptide 826 H (<=100) pg/mL Total Protein 8.8 (6.4-8.9) g/dL Albumin 3.7 (3.2-5.2) g/dL Globulin 5.1 H (2-4) g/dL Albumin/Globulin Ratio 0.7 L (1-3) Result Diagrams: 02/17/19 07:39 02/17/19 07:39 Lab Statement: Any lab studies that have been ordered have been reviewed, and results considered in the medical decision making process. - Radiology CXR Radiology Interpretation Completed By: Radiologist Summary of Radiographic Findings: IMPRESSION: NO ACTIVE CARDIOPULMONARY DISEASE. THIS REPORT WAS REVIEWED BY DR. MCGRATH. - EKG 07:51 Cardiac Rate: NL - rate of 61 BPM EKG Rhythm: Sinus Rhythm - Rate of 61 bpm EKG Comparison: No Significant Change - No significant change when compared to EKG taken on 04/04/17 Summary of EKG Findings: EKG showed sinus rythm at a rate of 61 bpm. Right bundle branch block. No significant change when compared to EKG taken on . ED physician has reviwed this report. Re-Evaluation - Re-Evaluation First Eval Re-Evaluation Time: 11:05 Change: Improved - d/w patient labs and workup. EKG w RBBB (chronic), K 5.4. he is going to try to go back to dialysis today, states he feels much better. Course/Dx Course Of Treatment: 48 y/o male w HTN, DM, ESRD on dialysis MWF p/w lightheadedness/near syncope. - PE well appearing male, NAD. EKG RBBB, labs w K 5.4. - suspect symptoms 2/2 near syncope. No CP. - trop 0.07, suspect 2/2 ESRD. plan for trend, will d/w nephrology. Syncope. DDx: most likely vasovagal. Seizure: no witnessed seizure activity, incontinence or h/o seizures to suggest seizure today. Hypoxia and hypoglycemia less likely in this patient with normal sats and BG. Cardiac issue: electrical (dysarrhythmias , brugada, WPW, long QT). Less likely given no evidence of drop attack, no palpitations. EKG baseline RBBB, No CP. Mechanical: outflow obstruction like HOCM or aortic stenosis, tamponade-less likely as no murmur, non-exertional, no hypertrophy on EKG. Vessels: PE, dissection, AAA. Clinical picture inconsistent , no abd pain, no pulsatile mass. Volume issue: dehydration from vomiting/ diarrhea/decreased PO, sepsis, GI bleed, ruptured ectopic or bleeding AAA. No signs of recent illness to suggest infection, no e/o anemia by history or PE. Neuro: No HINOJOSA, no personal or family h/o cerebral aneurysm, nml neuro exam, so this is unlikely ICH or sentinel bleed - Diagnoses Provider Diagnoses: Near syncope, ESRD (end stage renal disease) on dialysis - Physician Notifications Discussed Care of Patient With: Francisca Paulson Time Discussed With Above Provider: 10:11 Instructed by Provider To: Other - Patient's case was discussed with Dr. Paulson. 1023 - Patient's potassium is 5.4, She state OK for patient to be discharged to home and receive dialysis tomorrow if he cannot get at dialysis center today. Discharge ED - Sign-Out/Discharge Documenting (check all that apply): Patient Departure - Discharge Plan Condition: Stable Disposition: HOME Patient Education Materials: Near Syncope (ED) Referrals: Tru Mancini MD [Medical Doctor] - Additional Instructions: You were seen in the emergency department for near syncope. Please go to dialysis today if you are unable to go to dialysis today, please come to the [facility] dialysis department tomorrow at 6 am. Please follow up with your primary care doctor in next 2-3 days and return to emergency department for chest pain, passing out, trouble breathing, worsening or concerning symptoms. It was a pleasure taking care of you today. - Billing Disposition and Condition Condition: STABLE Disposition: Home - Attestation Statements Document Initiated by Ivett: Yes Documenting Scribe: Og Noriega Provider For Whom Ivett is Documenting (Include Credential): Dr. Magda Mcgrath MD Scribe Attestation: I, Og Noriega, scribed for Dr. Magda Mcgrath MD on 02/17/19 at 1116. Scribe Documentation Reviewed: Yes Provider Attestation: The documentation as recorded by the scribe, Og Noriega accurately reflects the service I personally performed and the decisions made by me, Dr. Magda Mcgrath MD Status of Scribe Document: Viewed
[2019-02-17 11:05] LABS: Troponin I 0.07 ng/mL (<0.03)
[2019-02-17 11:23] VITALS: BP 155/87
== END 2019-02-17 11:20 | disposition home or self-care (01) ==
LOC: ED 07:22
DX: R55 Syncope and collapse (principal); E11.22 Type 2 diabetes mellitus with diabetic chronic kidney disease; I12.0 Hypertensive chronic kidney disease with stage 5 chronic kidney disease or end stage renal disease; N18.6 End stage renal disease; F17.210 Nicotine dependence, cigarettes, uncomplicated; Z99.2 Dependence on renal dialysis; Z88.5 Allergy status to narcotic agent; Z88.8 Allergy status to other drugs, medicaments and biological substances
CPT/HCPCS: 36415; 71045; 80053; 83880; 84484; 85025; 93005; 99282

== ENCOUNTER 2019-06-16 11:04 | Inpatient (IN) | payer MEDICARE ==
--- NOTE | 2019-06-16 11:29 | ED ---
Lower Extremity - HPI Summary HPI Summary: 48 year old M with hx diabetes and hypertension arriving via private car complains of wounds, discharge, numbness, discoloration, and throbbing pain with ambulation of his right fifth, and left third, fourth, fifth toes since 2018. No fever. He hasn't seen anyone yet for his symptoms. The patient rates the pain 9/10 in severity. Symptoms aggravated by ambulation. Symptoms alleviated by nothing. On dialysis. He received it today. Medications reviewed. Allergies noted. - History of Current Complaint Chief Complaint: EDExtremityLower Stated Complaint: WOUND ON LEFT FOOT Time Seen by Provider: 06/16/19 11:23 Hx Obtained From: Patient Onset/Duration: Still Present Severity Currently: Severe Pain Intensity: 9 Pain Scale Used: 0-10 Numeric Timing: Constant Location: Is Discrete @ - right fifth, and left third, fourth, fifth toes Character Of Pain: Throbbing Aggravating Factor(s): Ambulation Alleviating Factor(s): Nothing - Allergies/Home Medications Allergies/Adverse Reactions: Allergies Allergy/AdvReac Type Severity Reaction Status Date / Time doxercalciferol Allergy Airway Verified 06/16/19 11:12 Obstruction morphine Allergy Nausea And Verified 06/16/19 11:12 Vomiting Home Medications: Home Medications amLODIPine TAB* [Norvasc TAB*] 10 mg PO DAILY 05/15/15 [History Confirmed ] Calcitriol CAP* [Rocaltrol CAP*] 0.75 mcg PO BID 04/04/17 [History Confirmed ] Ferric Citrate TAB(NF) 630 mg PO TID 04/04/17 [History Confirmed 06/16/19] Metoprolol Tartrate TAB* [Lopressor TAB*] 25 mg PO DAILY 04/04/17 [History Confirmed 06/16/19] Acetaminophen TAB* [Tylenol TAB*] 650 mg PO Q4H PRN 06/16/19 [History Confirmed 06/16/19] Lisinopril TAB* [Prinivil TAB*] 40 mg PO DAILY 06/16/19 [History Confirmed 06/15] Nitroglycerin TAB 0.4 MG* 0.4 mg SL Q5M PRN MDD 3 tabs 06/16/19 [History Confirmed 06/16/19] Patiromer POWDER* [Veltassa POWDER*] 8.4 gm PO DAILY 06/16/19 [History Confirmed 06/16/19] diPHENhydraMINE PO* [Benadryl PO 25 MG TAB*] 25 mg PO DAILY PRN 06/16/19 [ History Confirmed 06/16/19] diPHENhydraMINE PO* [Benadryl PO 50 MG CAP*] 50 mg PO DAILY PRN 06/16/19 [ History Confirmed 06/16/19] PMH/Surg Hx/FS Hx/Imm Hx Endocrine/Hematology History: Reports: Hx Diabetes Denies: Hx Anticoagulant Therapy, Hx Thyroid Disease Cardiovascular History: Reports: Hx Hypertension, Other Cardiovascular Problems/ Disorders - INSERTION TESIO CATH /DIALYSIS PT. Denies: Hx Congestive Heart Failure, Hx Deep Vein Thrombosis, Hx Myocardial Infarction, Hx Pacemaker/ICD Respiratory History: Denies: Hx Asthma, Hx Chronic Obstructive Pulmonary Disease (COPD), Hx Lung Cancer, Hx Pneumonia, Hx Pulmonary Embolism GI History: Denies: Hx Gall Bladder Disease, Hx Gastrointestinal Bleed, Hx Ulcer, Hx Urosepsis History: Reports: Hx Renal Disease Denies: Hx Kidney Stones Sensory History: Reports: Hx Contacts or Glasses Opthamlomology History: Reports: Hx Contacts or Glasses Neurological History: Denies: Hx Dementia, Hx Migraine, Hx Seizures, Hx Transient Ischemic Attacks (TIA) Psychiatric History: Denies: Hx Anxiety, Hx Depression, Hx Schizophrenia, Hx Bipolar Disorder - Surgical History Surgery Procedure, Year, and Place: Groin surgery for "bacteria" Infectious Disease History: No Infectious Disease History: Denies: Traveled Outside the [place] in Last 30 Days - Family History Known Family History: Positive: Hypertension, Diabetes - Social History Alcohol Use: None Substance Use Type: Reports: None Hx Tobacco Use: Yes Smoking Status (MU): Heavy Every Day Tobacco Smoker Type: Cigarettes Amount Used/How Often: 6/day Length of Time of Smoking/Using Tobacco: 20 years Review of Systems Negative: Fever Positive: Other - throbbing pain with ambulation of right fifth, and left third , fourth, fifth toes Positive: Other - wounds, discharge, numbness, discoloration of right fifth, and left third, fourth, fifth toes All Other Systems Reviewed And Are Negative: Yes Physical Exam - Summary Physical Exam Summary: Constitutional: Well-developed, Well-nourished, Alert. (-) Distressed Skin: Warm, Dry; Necrotic third, fourth, fifth digits of left foot with surrounding erythema and purulent drainage; Ulcer to the fifth digit of the right foot and mild erythema. HENT: Normocephalic; Atraumatic Eyes: Conjunctiva normal Neck: Musculoskeletal ROM normal neck. (-) JVD, (-) Stridor, (-) Nuchal rigidity Cardio: Rhythm regular, rate normal, Heart sounds normal; Intact distal pulses; Radial pulses are 2+ and symmetric. (-) Murmur Pulmonary/Chest wall: Effort normal. (-) Respiratory distress, (-) Wheezes, (-) Rales Abd: Soft, (-) tenderness, (-) Distension, (-) Guarding, (-) Rebound Musculoskeletal: Mild swelling of the left foot. DP pulses bilaterally. Lymph: (-) Cervical adenopathy Neuro: Alert, Oriented x3 Psych: Mood and affect Normal Triage Information Reviewed: Yes Vital Signs On Initial Exam: Initial Vitals Temp Pulse Resp BP Pulse Ox 97.4 F 67 16 140/86 98 06/16/19 11:06 06/16/19 11:06 06/16/19 11:06 06/16/19 11:06 06/16/19 11:06 Vital Signs Reviewed: Yes Procedures - Sedation Patient Received Moderate/Deep Sedation with Procedure: No Diagnostics - Vital Signs Vital Signs Temp Pulse Resp BP Pulse Ox 06/16/19 11:06 97.4 F 67 16 140/86 98 - Laboratory Result Diagrams: 06/16/19 11:29 06/16/19 11:29 Lab Statement: Any lab studies that have been ordered have been reviewed, and results considered in the medical decision making process. Lower Extremity Course/Dx - Course Course Of Treatment: 48 y/o male w HTN, DM, ESRD p/w foot wounds. - PE w necrotic left third fourth and fifth toes. Surrounding erythema and drainage, covered w Clindamycin. Faint Doppler signal DP pulses bilaterally. Also has ulcer to the right fifth toe. Will likely need amputation, orthopedics consulted. Admit to medicine - Diagnoses Provider Diagnoses: Diabetic foot ulcer - Physician Notifications Discussed Care Of Patient With: Doris Gates Time Discussed With Above Provider: 11:49 Instructed by Provider To: Other - Dr. Gates is aware and agrees to consult. 1150 Dr. Dasilva agrees to admit patient. Discharge ED - Sign-Out/Discharge Documenting (check all that apply): Patient Departure - Discharge Plan Condition: Stable Disposition: ADMITTED TO [facility] Referrals: No Primary Care Phys,NOPCP [Primary Care Provider] - - Billing Disposition and Condition Condition: STABLE Disposition: Admitted to [facility] - Attestation Statements Document Initiated by Scribe: Yes Documenting Scribe: Azalia Fang Provider For Whom Orlandoibe is Documenting (Include Credential): Magda Mcgrath MD Scribe Attestation: Azalia Wolfe, scribed for Magda Mcgrath MD on 06/16/19 at 1352. Scribe Documentation Reviewed: Yes Provider Attestation: The documentation as recorded by the Azalia crawford accurately reflects the service I personally performed and the decisions made by Magda jones MD Status of Scribe Document: Viewed
[2019-06-16 11:40] LABS: ABS Basophils 0.1 10^3/ul (0-0.2); ABS Eosinophils 0.2 10^3/ul (0-0.6); ABS Monocytes 1.3 10^3/ul (0-0.8); ABS Neutrophils 11.7 10^3/ul (1.5-7.7); Eosinophil % 1.4 %; Hematocrit 34 % (42-52); Hemoglobin 11.4 g/dL (14.0-18.0); Lymphocyte % 6.9 %; Mean Corpuscular HGB Conc 34 g/dL (31-36); Mean Corpuscular Hemoglobin 29 pg (27-31); Mean Corpuscular Volume 87 fL (80-94); Mean Platelet Volume 8.3 fL (7.4-10.4); Nucleated Red Blood Cells % 0.1; Platelet Count 445 10^3/uL (150-450); Red Blood Count 3.91 10^6 /uL (4.18-5.48); Red Cell Distribution Width 16 % (10-15); White Blood Count 14.3 10^3/uL (3.5-10.8)
[2019-06-16] MEDS ORDERED: Clindamycin 600 MG/D5W BAG(*) 600 MG/50 ML BAG IV ONE (11:47)
[2019-06-16 12:06] LABS: Albumin 3.5 g/dL (3.2-5.2); Albumin/Globulin Ratio 0.6 (1-3); BUN/Creatinine Ratio 6.5 (8-20); C Reactive Protein 159.66 mg/L (<8.01); Calcium 8.3 mg/dL (8.6-10.3); EGFR African American 17.7 (>60); EGFR Non-African American 14.7 (>60); Globulin 5.6 g/dL (2-4); Potassium 3.8 mmol/L (3.5-5.0); Total Bilirubin 5.1 mg/dL (0.2-1.0); Total Protein 9.1 g/dL (6.4-8.9)
[2019-06-16] MEDS ORDERED: Cefepime(*) 1 GM in NS 0.9% 50 ML* 50 ML IVPB ONE (13:22)
[2019-06-16] MEDS ORDERED: Vancomycin(*) 1,000 MG in NS 0.9% 250 ML* 250 ML IV ONE (13:22)
[2019-06-16] MEDS ORDERED: NS 0.9% 1000 ML** 1,000 ML IV SCH (13:30)
[2019-06-16] MEDS ORDERED: Dextrose 50% Syringe 50 ML* 25 GM/50 ML SYRINGE IV PUSH PRN (13:32)
[2019-06-16] MEDS ORDERED: Cefepime 1 GM in Dextrose(*) 1 GM/50 ML q12h (Duplex) IV ONE (15:00)
--- NOTE | 2019-06-16 15:20 | HP ---
CC: Dr. Garcia; Dr. Paulson * HISTORY AND PHYSICAL: DATE OF ADMISSION: 06/16/19 PRIMARY CARE PROVIDER: None. NEPHROLOGISTS: Dr. Paulson and Dr. Garcia. CHIEF COMPLAINT: Left foot pain. HISTORY OF PRESENT ILLNESS: Mr. Sepulveda is a 48-year-old male who has a history of type 2 diabetes, not on any treatment; end-stage renal disease; and hypertension as well as ongoing tobacco abuse; who presents to the emergency room with complaints of left foot pain. The patient is an incredibly poor historian, but states that around [place] time, he noted the toes 3 through 5 on his left foot began to turn black. He has noted that the skin "dried out." The patient ultimately presented today because of severe pain in the left foot. It is making him have a difficult time walking. He also notes that over the last 1 month, there has been drainage from the base of the toes 3 through 5 on the left. He also has an ulcer on the medial aspect of the left heel. He states that a while ago he noted there was a callus. He states that that fell off and left "a divot." He also possibly noted some drainage in the past. The right fifth toe is also noted to be black. He thinks that may have been going on for a few weeks, but he is not sure. He denies any fevers, but does admit to chills. He states his appetite has been poor, but this has been chronic. He has no other acute complaints today. PAST MEDICAL HISTORY: 1. Type 2 diabetes. 2. End-stage renal disease. 3. Hyperkalemia, treated with daily patiromer. PAST SURGICAL HISTORY: Right upper extremity fistula. MEDICATIONS: 1. Nitroglycerin 0.4 mg SL q.5 minutes p.r.n. chest pain. 2. Benadryl 50 mg p.o. daily p.r.n. allergy. 3. Benadryl 25 mg p.o. daily p.r.n. itching. 4. Tylenol 650 mg p.o. q.4 hours p.r.n. pain. 5. Calcitriol 0.75 mcg p.o. b.i.d. 6. Patiromer 8.4 g p.o. daily. 7. Ferric citrate 630 mg p.o. t.i.d. 8. Metoprolol tartrate 25 mg p.o. daily. 9. Amlodipine 10 mg p.o. daily. 10. Lisinopril 40 mg p.o. daily. ALLERGIES: DOXERCALCIFEROL, MORPHINE. FAMILY HISTORY: Mom is living, she is 66 and healthy, though I am suspicious he has her age wrong. Dad reportedly at the age of 55 of CVA, but he also states that was 25 years ago. SOCIAL HISTORY: The patient smokes a half pack per day. He previously smoked 1 pack per day. He smoked for the last 20 years. He does not drink alcohol. He does not use any recreational drugs. He is disabled. He has no children. He is not . He indicates that his mom would be his healthcare proxy. REVIEW OF SYSTEMS: A complete 11-system review of systems is obtained. Pertinent positives and negatives are as per HPI, and in addition, the patient does admit to diffuse itching and ends up picking at his skin, which then scab over and scar. Otherwise, review of systems is negative. PHYSICAL EXAMINATION GENERAL: The patient is a well-developed, middle-aged male who appears older than his stated age, sitting up in the stretcher, in no acute distress. VITAL SIGNS: Blood pressure 123/72, pulse 68, respirations 16, temp 97.4, O2 sat 99% on room air. HEENT: Pupils are equal. Extraocular muscles are intact. Oropharynx is clear. The patient has a partial on the top that frequently falls down during my evaluation. Oropharynx is clear and moist. There is no submandibular, cervical, or supraclavicular adenopathy. PULMONARY: Lungs are clear with few crackles at the bases. CARDIAC: Normal S1, S2. Regular rate and rhythm. I do not appreciate any murmurs. ABDOMEN: Bowel sounds are present. Abdomen is soft, nontender, nondistended. MUSCULOSKELETAL: There is no cyanosis or clubbing of the digits. The toes 3 through 5 on the left are black with almost a purulent appearing blister at the base of the third toe with mild associated erythema at the base of the necrosis. There is a foul smell. The right fifth toe is necrotic appearing and dry. There is a small dry ulceration to the medial aspect of the left heel. There is bogginess surrounding this. There is no drainage. NEURO: Cranial nerves II through XII are grossly intact. Sensation is intact to light touch throughout. Strength is 5/5 and symmetric in both upper and lower extremities bilaterally. PSYCH: The patient is alert. He is oriented x3. Again, he is a poor historian. SKIN: The patient has numerous scabs from picking as well as scars. DIAGNOSTIC STUDIES/LAB DATA: WBC 14.3, hemoglobin 11.4, hematocrit 34, platelets 445. Sodium 136, potassium 3.8, chloride 88, CO2 of 35, BUN 28, creatinine 4.34, glucose 166, calcium 8.3. Bilirubin 5.1, AST 25, ALT 20, alk phos 173. CRP 159.66. Albumin 3.5. Left foot x-ray, extensive calcifications were suspected, but poorly characterized ulcerations about the third through fifth toes. No radiographic evidence of osteomyelitis (poor sensitivity). Moderate first MTP osteoarthropathy. Calcaneal enthesophytes. Right foot x-ray reveals extensive vascular calcifications. There is osteopenia with no fracture or katy erosion. There are calcaneal enthesophytes. ASSESSMENT AND PLAN: Mr. Sepulveda is a 48-year-old male with end-stage renal disease, type 2 diabetes, hypertension, and ongoing tobacco abuse, who presents to the emergency room with complaints of severe pain in toes 3 through 5 that turned black at least around [place] time last year. 1. Wet gangrene of toes 3 through 5 on the left with associated sepsis. The patient appears to have infected gangrenous toes on the left. X-ray does not clearly show any osteomyelitis; however, there is very high suspicion as the toes have been in a very poor state for quite some time. The patient will undergo MRI of the left foot to evaluate for evidence of osteomyelitis. It is likely he will need at least amputations of toes 3 through 5, however, more likely a transmetatarsal amputation. The patient also has dry gangrene at the right fifth toe. Again, x-ray does not show any evidence of osteomyelitis. MRI of this foot will also be obtained. Given the associated sepsis (elevated white blood cell count), the patient will be treated with cefepime, vanco, and Flagyl. ID consultation has been requested. It is highly likely the patient has significant peripheral arterial disease. ABIs have been ordered and results of these are pending. In preparation for the OR, I have evaluated the patient's cardiac risk. His RCRI is 2 based on probable history of ischemic heart disease (the patient has an order for p.r.n. nitroglycerin) and an elevated creatinine giving him a 10.1% 30-day risk of , myocardial infarction, or cardiac arrest. As the patient is a very poor historian, I am concerned about his cardiac risk. I am going to order a transthoracic echo to evaluate his ejection fraction. I do not believe stress test would be warranted at this time, as if positive, I do not believe he should undergo a cardiac catheterization prior to going to the OR as he can very easily become quite ill related to his gangrenous toes. He does not do much in the way of activity. He does state that he becomes short of breath with exertion. He does , however, tell me he is able to do all of his own grocery shopping. He will stand and do dishes. After the echocardiogram, I believe the patient should proceed to the OR without any further testing unless any new findings arise. 2. Hyperbilirubinemia. The patient has an elevated bilirubin of 5.1. He has had high bilirubins in the past up to 11.8 in March 2017. He is able to tell me at one point he was in [facility] and required paracentesis. I do not have anymore history than that. I will obtain a liver ultrasound. I suspect he may have some form of cirrhosis. 3. Type 2 diabetes. The patient is off all diabetic medication. He states that his hemoglobin A1c normalized. The last one I have at [facility] is from 2015, and at that time, his hemoglobin A1c was 8.0%. I will add this on to today's lab. He will be placed on a lispro sliding scale. 4. End-stage renal disease. I will notify Nephrology that the patient is admitted, so he can receive his usual dialysis. He will continue on patiromer daily. 5. Hypertension. The patient's blood pressure is under fair control. He will be continued on his usual regimen of lisinopril, amlodipine, and metoprolol. 6. DVT prophylaxis: According to the Adult Thrombosis Prophylaxis Risk Factor Assessment Guide, the patient has a total risk factor score of 3 making him high risk. He will be placed on heparin 5000 units subcutaneous q.8 hours. 7. Code status is full. TIME SPENT: Sixty-five minutes was spent admitting this patient. [id number]/[facility] #: [id number] OLIVA
[2019-06-16] MEDS ORDERED: Lorazepam PYXIS KEY PRN ×2 (16:42→23:47)
[2019-06-16] MEDS ORDERED: LORazepam INJ* 2 MG/ML 1 ML VIAL IV PUSH ONE ×2 (16:45→23:47)
--- NOTE | 2019-06-16 17:09 | CONS ---
CONSULTATION REPORT: DATE OF CONSULT: 06/16/19 ATTENDING ORTHOPEDIC PROVIDER: Dr. Rickie Crooks. CHIEF COMPLAINT: toe, left foot. HISTORY OF PRESENT ILLNESS: The patient is a 48-year-old male who has a past medical history significant for type 2 diabetes, who is not on any DM2 treatment ; end- stage renal disease, on dialysis; hypertension; tobacco abuse; who presented to the emergency room with complaints of black and painful left toes. Toes 3 through 5 have been black since [place] time making it exceedingly and progressively more difficult to walk due to pain. Over the past month, there has been drainage from the base of these 3 toes and he has had some development of redness as well. He also has a small ulcer on the medial left heel, which used to be a callus, but has fallen off and left a divot. The patient feels that there was some drainage at sometime from this, but there is no longer. In addition to the appearance of his foot, he has severe pain and foul odor. He has not felt that he has had any fever or chills, but he has had a poor appetite over the past several weeks. He also enquires about the condition of his right foot, of which he does have some black discoloration developing on the right fifth toe as well. For treatment, the patient has been soaking his feet in a salt water solution and attempting to keep them dry. PAST MEDICAL HISTORY: 1. Uncontrolled type 2 diabetes. 2. End-stage renal disease. 3. Hyperkalemia, treated with patiromer. PAST SURGICAL HISTORY: Right upper extremity fistula. ALLERGIES: DOXERCALCIFEROL and MORPHINE. FAMILY HISTORY: Mother is alive and healthy. Dad at age 55 of CVA. SOCIAL HISTORY: Smokes half a pack a day over the past 20 years. Does not drink alcohol. Does not use recreational drugs. He is disabled and does not work. He has no children. He is not . His mother is his healthcare proxy. REVIEW OF SYSTEMS: General: Denies any fever or chills or recent illness. HEENT: No headache or change in vision. Cardiac: No chest pain or shortness of breath. Respiratory: No shortness of breath. Abdomen: No abdominal pain, nausea, vomiting, or diarrhea. Does report that he has had to have paracentesis at some point, he is unsure why. Musculoskeletal: Positive for bilateral foot pain and blackening of toes. Skin: Reports diffuse itching with excoriated areas. Neuro: Reports decreased sensation bilateral lower extremities. PHYSICAL EXAMINATION: GENERAL: The patient appears well. He is in no acute distress. He is nontoxic appearing. VITAL SIGNS: Temperature 97.4, pulse 67, respiratory rate is 16, oxygen saturation 98%, blood pressure 140/86. HEENT: Normocephalic, atraumatic. Extraocular movements are intact. PULMONARY: Good air exchange bilaterally. CARDIAC: S1, S2. No murmur. ABDOMEN: Nondistended, nontender. Bowel sounds normoactive. MUSCULOSKELETAL: Bilateral upper extremities with diffuse patchy excoriations from itching, none of which appear infected. He is nontender to palpation. He is able to flex and extend all joints without any pain. Lower extremities on both sides, he does also have diffuse excoriations, none of which appear infected. On the left side, toes 3 through 5 are black circumferentially with a purulent base. This blackened area is soft and fluctuant, though there is not any expressible discharge at this time. There is a foul odor. The second toe was erythematous. Toes 2 through 5 are quite painful. The great toe is not causing the patient any pain. There is erythema proximal to the purulence, which does not span past mid foot. There is no proximal streaking. On the medial heel, there is a pea sized dry ulceration without any surrounding erythema, though this area does feel boggy and is tender to palpation. He is able to flex and extend at the ankle without any pain. The patient has decreased sensation of the foot. Right lower extremity, the fifth digit is very dusky and some patchy areas of blackening primarily on the plantar aspect. The remainder of this area is a bit fluctuant without any gross purulence. The remainder of the toes are macerated and nontender to palpation. Able to flex and extend the MTPs and ankle without pain. There are no palpable pulses, DP or PT, in the foot. There is very slow capillary refill on the toes that are necrotic on the left foot. There is obviously no ability to assess capillary refill. NEURO: Neuropathic bilateral lower extremities. PSYCH: Oriented x3, but a very poor historian. DIAGNOSTIC STUDIES/LAB DATA: White blood cell count 14.3, hemoglobin 11.4, hematocrit 34, platelet count 445. Sodium 136, potassium 3.8, creatinine 4.34. Hemoglobin A1c 7.3. Alk phos 173. CRP 159.66. Ankle brachial index; calcified atherosclerosis, though the patient is unable to remain still for the exam, so DARRYN was of little diagnostic utility. Awaiting MRI of bilateral feet and toes. ASSESSMENT: 1. Left lower extremity with gangrenous toes, 3 through 5, and forefoot infection. 2. Right lower extremity infection of at least fifth toe. PLAN: The patient can be heel weightbearing bilaterally. A vascular consult has been placed. MRI of bilateral lower extremities has been placed. He will be started on IV antibiotics. Recommend vanco, cefepime, and Flagyl at this time. ID consulted. Suspect the patient is going to need vascular intervention. If vascular is able to provide any improved arterial flow, it will be prudent to do so prior to engaging in amputation. I suspect that he is going to need transmetatarsal amputation of the left foot and at some point right fifth toe amputation, though the left is more urgent. Dr. Crooks is attending orthopedic provider, who agrees with this assessment and plan. He will follow him over the next several days and surgical intervention will be scheduled once vascular assessment and any intervention has been completed. KAVITA HARRY [id number]/[facility] #: [id number] OLIVA
[2019-06-16] MEDS: Insulin LISPRO* 1 UNITS UNIT SUBCUT SCH ×2 (17:50→21:20)
[2019-06-16] MEDS ORDERED: Cefepime ADVAN(*) 1 GM in NS 0.9% 50 ML* 50 ML IVPB ONE (17:53)
[2019-06-16] MEDS ORDERED: DEXTROSE IV ONE (18:00)
[2019-06-16] MEDS ORDERED: CEFEPIME IV ONE (18:00)
--- NOTE | 2019-06-16 19:24 | CONSULT ---
Consult Consult: Date of service: 06/16/2019 Reason for consultation: Bilateral feet wounds in the presence of an abnormal DARRYN. Arterial insufficiency suspected. Requesting service: Foot and ankle orthopedic surgery, KAVITA Conrad HISTORY OF PRESENT ILLNESS: The patient is a 48-year-old male who has a past medical history significant for type 2 diabetes, who is not on any treatment; end- stage renal disease, on dialysis; hypertension; tobacco abuse; who presented to the emergency room with complaints of black and painful left toes. The patient states that he no longer takes diabetes medications because his PCP, Dr. Mancini, told him he didn't have to. Toes 3 through 5 have been black since [place] making at more difficult to walk due to pain. Over the past month, there has been drainage from the base of these 3 toes and he has had some development of redness as well. He also has a small ulcer on the medial left heel, which used to be a callus, but has fallen off and left a divot. The patient feels that there was some drainage at sometime from this, but there is no longer. Prior to having the toe wounds, the patient denies any symptoms characteristic of claudication or rest pain. He has not felt that he has had any fever or chills, but he has had a poor appetite over the past several weeks. PAST MEDICAL HISTORY: 1. Uncontrolled type 2 diabetes. 2. End-stage renal disease. 3. Hyperkalemia, treated with patiromer. PAST SURGICAL HISTORY: Right upper extremity fistula. ALLERGIES: DOXERCALCIFEROL and MORPHINE. FAMILY HISTORY: Mother is alive and healthy. Dad at age 55 of CVA. SOCIAL HISTORY: Smokes half a pack a day over the past 20 years. Does not drink alcohol. Denies recreational drugs. He is disabled and does not work. He has no children. He is not . His mother is his healthcare proxy. REVIEW OF SYSTEMS: General: Denies any fever or chills or recent illness. HEENT: No headache or change in vision. Cardiac: No chest pain or shortness of breath. Respiratory: No shortness of breath. Abdomen: No abdominal pain, nausea, vomiting, or diarrhea. Musculoskeletal: Positive for bilateral foot pain and blackening of toes. Skin: Reports diffuse itching with excoriated areas. Neuro: Reports decreased sensation bilateral lower extremities. PHYSICAL EXAMINATION: GENERAL: Selected Entries 06/16/19 16:44 Temperature 97.9 F Pulse Rate 65 Respiratory 16 Rate Blood Pressure 109/66 (mmHg) O2 Sat by Pulse 99 Oximetry Patient sitting up in bed. No acute distress. The patient is somnolent, but is responsive to verbal stimuli. RRR, S1/S2 CTAB Right upper arm fistula exhibits an appropriate thrill. The abdomen is soft and nontender. 2+ pulses are palpated the bilateral common femoral arteries. Neither popliteal or pedal arteries are palpable. The left 3 lateral toes are blackened gangrenous extending into the metatarsal region. There is a dry wound on the medial left ankle. The right forefoot is dusky in appearance but does not have the same advanced wounds seen on the left. Motor function of the lower extremities is grossly intact with the exception of the left forefoot. There is reduced ability to flex and dorsiflex the left toes. RELEVANT IMAGING: Patient Name: MEAGHAN ALCARAZ Medical Record#: [id number] Ordering Physician: Letty WALLS Acct.#: [id number] : 1970 Age: 48 Sex: M Location: EMERGENCY DEPARTMENT Exam Date: 06/16/19 1244 ADM Status: REG ER Order Information: VL ANK/ BRACHIAL INDICES Accession Number: [id number] CPT: 89293 INDICATION: Lower extremity pain COMPARISON: Noncontrast CT of the abdomen and pelvis April 04, 2017 demonstrating coarse calcification in the abdominal aorta, iliac arteries and proximal femoral arteries. TECHNIQUE: Ankle-brachial indices and Doppler tracings were obtained of the lower extremities bilaterally. Volume pulse recordings were acquired at the bilateral ankles. REPORT: Ankle-brachial indices: Right: Value (SBP) Index Brachial: 142 Posterior tibialis: 0 0 Dorsalis pedis: Noncompressible Left: Value (SBP) Index Brachial: 142 Posterior tibialis: 0 0 Dorsalis pedis: Noncompressible Doppler waveforms (acquired at rest): In the interrogated lower extremity arteries, Doppler waveforms are there is near absence of flow recorded in the left dorsalis pedis artery. The right dorsalis pedis artery is monophasic.. Volume pulse recordings (acquired at rest): Volume pulse recordings, measured at the bilateral ankles, are symmetric. IMPRESSION: This DARRYN is of little diagnostic utility due to patient's inability to remain still. Findings are consistent with calcified atherosclerosis with apparently significant arterial flow reduction. Dedicated clinical vascular workup and vascular imaging is advised. <Electronically signed by Valerio Phillips MD in OV> 06/16/19 1531 LAB DATA: Laboratory Tests 06/16/19 06/16/19 06/16/19 11:29 11:29 17:43 WBC 14.3 H RBC 3.91 L Hgb 11.4 L Hct 34 L Plt Count 445 BUN 28 H Creatinine 4.34 H Est GFR (Non-Af Amer) 14.7 POC Glucose (mg/dL) 118 H Laboratory Tests 06/16/19 11:29 Hemoglobin A1c 7.3 H ASSESSMENT: 48-year-old poorly controlled diabetic and cigarette smoker with advanced lower extremity arterial insufficiency and subsequent, left worse than right, bilateral gangrenous feet. PLAN: 1. Pelvic and bilateral lower extremity arteriography to determine feasibility of endovascular revascularization. Potentially this could be added on 06/18/2019, but I have to determine angiography suite and staff availability. 2. The patient will require hemodialysis within 24 hours of angiography. 3. Continue IV antibiotics, wound care and surgical amputation as indicated.
[2019-06-16] MEDS: metroNIDAZOLE TAB* 250 MG PO SCH (21:48)
[2019-06-16] MEDS: Calcitriol CAP* 0.25 MCG PO SCH (21:48)
[2019-06-16] MEDS: Acetaminophen TAB* 325 MG PO PRN (21:49)
[2019-06-16] MEDS: Heparin VIAL(*) 5000 UNITS/ML VIAL (FIVE THOUSAND) SUBCUT SCH (21:50)
[2019-06-17] MEDS: oxyCODONE/Acetamin 5/325 MG* TAB PO PRN ×2 (00:04→21:59)
[2019-06-17 06:10] LABS: Hematocrit 34 % (42-52); Hemoglobin 11.2 g/dL (14.0-18.0); Mean Corpuscular HGB Conc 33 g/dL (31-36); Mean Corpuscular Hemoglobin 29 pg (27-31); Mean Corpuscular Volume 88 fL (80-94); Mean Platelet Volume 8.6 fL (7.4-10.4); Platelet Count 414 10^3/uL (150-450); Red Blood Count 3.92 10^6 /uL (4.18-5.48); Red Cell Distribution Width 16 % (10-15); White Blood Count 16.5 10^3/uL (3.5-10.8)
[2019-06-17 06:23] LABS: BUN/Creatinine Ratio 6.6 (8-20); Calcium 7.6 mg/dL (8.6-10.3); EGFR African American 12.3 (>60); EGFR Non-African American 10.2 (>60); Potassium 4.3 mmol/L (3.5-5.0)
[2019-06-17] MEDS: Heparin VIAL(*) 5000 UNITS/ML VIAL (FIVE THOUSAND) SUBCUT SCH ×4 (07:55→22:07)
[2019-06-17] MEDS: Insulin LISPRO* 1 UNITS UNIT SUBCUT SCH ×5 (08:04→22:07)
--- NOTE | 2019-06-17 09:33 | ECHO ---
*[facility]* [place] [address] Fax #: [phone] Transthoracic Echocardiogram Patient: Jacek Sepulveda : 1970 Study Date: 06/17/2019 Age: 48 Gender: M HR: 73 bpm Height: 73 in /185.4 cm BSA: 2.28 m^2 Weight: 229.5 lb /104.3 kg BMI: 30.3 kg/m^2 *[employer]: Rebeca Green *Referring Physician: * Sabine DasilvaReading Physician: * Annmarie Summers MD Indications: Abnormal EKG. History: Risk factors: Current tobacco use. Hypertension. Dyslipidemia. ESRD. Conclusions Summary: - Left ventricle: Systolic function is mildly to moderately reduced. The estimated ejection fraction is 40-45%. There are no regional wall motion abnormalities. - Right ventricle: The cavity size is mildly to moderately dilated. Wall thickness is normal. - Left atrium: The atrium is mildly to moderately dilated. - Right atrium: The atrium is moderately dilated. - Mitral valve: There is trace regurgitation. - Tricuspid valve: There is severe regurgitation. - C/t 05/04/2015, left ventricle ejection fraction and tricuspid regurgitation without sig changes. Now cant accurately estimate PASP instead of moderate-severe then. Study data: Transthoracic echocardiogram. Procedure: Transthoracic echocardiography was performed. Image quality was adequate. The study was technically limited due to poor patient compliance and Smoking history. Complete 2D, spectral Doppler, and color flow Doppler. Location: Bedside. Patient status: Inpatient. Patient room number: 334. Rhythm: Normal sinus rhythm. Findings Left ventricle: The cavity size is normal. Wall thickness is mildly increased. Systolic function is mildly to moderately reduced. The estimated ejection fraction is 40-45%. There are no regional wall motion abnormalities. Left ventricular diastolic function parameters are normal. Right ventricle: The cavity size is mildly to moderately dilated. Wall thickness is normal. Systolic function is mildly to moderately reduced. Ventricular septum: The ventricular septum is normal. Left atrium: The atrium is mildly to moderately dilated. Right atrium: The atrium is moderately dilated. Atrial septum: No defect or patent foramen ovale is identified. Mitral valve: Appears calcified. The leaflets are mildly thickened. No echocardiographic evidence for prolapse. There is no evidence of stenosis. There is trace regurgitation. Aortic valve: The valve is probably trileaflet. The leaflets are mildly calcified. There is no evidence of stenosis. There is no significant regurgitation. Tricuspid valve: The valve is structurally normal. The leaflets are normal thickness. There is no evidence of stenosis. There is severe regurgitation. Hepatic neetu flow reversal is present Pulmonic valve: The valve is structurally normal. There is no evidence of stenosis. There is trace regurgitation. Aorta: The aortic root appears normal. The aortic arch appears normal. Pericardium: There is no significant pericardial effusion. Pulmonary arteries: Systolic pressure can not be accurately estimated. Systemic veins: Inferior vena cava: The vessel is normal in size. There is (>= 50%) respiratory change in the IVC dimension. Pulmonary veins: The Pulmonary veins appear normal. Measurements Left ventricle Value Ref Aortic valve continued Value Ref MADYSON, LAX 5.1 cm 4.2 - Peak grad, S 11.0 mm Hg ----- 5.8 GEORGES, VTI 1.61 cm^2 ----- ESD, LAX 3.0 cm 2.5 - GEORGES, Vmax 1.73 cm^2 ----- 4.0 FS, LAX (H) 44 % 25 - 43 Mitral valve Value Ref PW, ED, LAX (H) 1.2 cm 0.6 - Peak E 1.02 m/sec ----- 1.0 Peak A 0.74 m/sec ----- E', lat jorge alberto, TDI 10.6 cm/sec >=10.0 Decel time 214 ms ----- E/e', lat jorge alberto, TDI 10 -------- Peak grad, D 4.2 mm Hg - ---- Peak E/A ratio 1.4 ----- LVOT Value Ref Diam, S 2.00 cm -------- Pulmonic valve Value Ref Area 3.1 cm^2 -------- Peak v, S 0.65 m/sec ----- Peak radhames, S 0.92 m/sec -------- Peak grad, S 2.0 mm Hg ----- Mean grad, S 2 mm Hg -------- SV 55 ml -------- Tricuspid valve Value Ref TR peak v 1.93 m/sec <=2 .8 Ventricular septum Value Ref Peak RV-RA grad, S 15 mm Hg ----- IVS, ED (H) 1.3 cm 0.6 - Max TR radhames 1.93 m/sec ----- 1.0 Aortic root Value Ref Right ventricle Value Ref Root diam 3.5 cm <4. 3 MADYSON, LAX 4.3 cm -------- MADYSON minor ax, A4C (H) 4.8 cm 1.9 - Ascending aorta Value Ref mid 3.5 AAo AP diam, S 3.1 cm ----- Left atrium Value Ref Aortic arch Value Ref ML dim, A4C 4.8 cm -------- Arch diam 2.7 cm ----- SI dim, A4C 6.2 cm -------- Vol/bsa, ES, 1-p 32 ml/m^2 12 - 37 Decending aorta Value Ref A4C Yaima peak radhames 0.55 m/sec ----- Right atrium Value Ref Inferior vena cava Value Ref SI dim, ES (H) 6.1 cm 3.4 - Diam 2.4 cm ----- 5.3 ML dim, ES, A4C (H) 5.7 cm 2.6 - 4.4 SI dim, ES, A4C (H) 6.1 cm 3.4 - 5.3 Aortic valve Value Ref Peak v, S 1.68 m/sec -------- VTI, S 34.2 cm -------- Mean grad, S 6.0 mm Hg -------- Legend: (L) and (H) corinna values outside specified reference range. Prepared and electronically signed by Annmarie Summers MD 06/17/2019 09:33
[2019-06-17] MEDS: Cefepime(*) 0.5 GM in NS 0.9% 50 ML* 50 ML IVPB SCH (09:47)
[2019-06-17] MEDS: Calcitriol CAP* 0.25 MCG PO SCH ×2 (09:48→22:11)
[2019-06-17] MEDS: Patiromer POWDER* 8.4 GM PAK PO SCH (09:48)
[2019-06-17] MEDS: metroNIDAZOLE TAB* 250 MG PO SCH ×2 (09:49→22:00)
[2019-06-17] MEDS: Metoprolol Tartrate TAB* 25 MG PO SCH (09:49)
[2019-06-17] MEDS: Lisinopril TAB* 10 MG PO SCH (10:13)
[2019-06-17] MEDS: amLODIPine TAB* 5 MG PO SCH (10:13)
--- NOTE | 2019-06-17 13:06 | PN ---
Subjective Date of Service: 06/17/19 Interval History: Mr. Sepulveda reports that his right foot hurts a bit but he only responds in monosyllables. He denies chest pain, SOB, nausea, or abdominal pain. Objective Active Medications: Acetaminophen (Tylenol Tab*) 650 mg PO Q4H PRN Amlodipine Besylate (Norvasc Tab*) 10 mg PO DAILY [facility] Calcitriol (Rocaltrol Cap*) 0.75 mcg PO BID [facility] Dextrose (D50w Syringe 50 Ml*) 12.5 gm IV PUSH .FOR FS < 60 - SS PRN Heparin Sodium (Porcine) (Heparin Vial(*)) 5,000 units SUBCUT Q8HR [facility] Cefepime HCl 0.5 gm/ Sodium (Chloride) 50 mls @ 100 mls/hr IVPB Q24HR [facility] Insulin Human Lispro (Humalog*) 0 units SUBCUT ACHS [facility]; Protocol Lisinopril (Prinivil Tab*) 40 mg PO DAILY [facility] Metoprolol Tartrate (Lopressor Tab*) 25 mg PO DAILY [facility] Metronidazole (Flagyl Tab*) 500 mg PO BID [facility] Miscellaneous (Ativan Pyxis Avila) 1 ea N/A .ATIVAN IV AVILA PRN Miscellaneous (Ativan Pyxis Avila) 1 ea N/A .ATIVAN IV AVILA PRN Oxycodone/Acetaminophen (Percocet 5/325 Tab*) 1 tab PO Q6H PRN Patiromer (Veltassa Powder*) 8.4 gm PO DAILY [facility] Vital Signs: Temp Pulse Resp BP Pulse Ox 98.9 F 67 18 104/57 98 06/17/19 11:53 06/17/19 11:53 06/17/19 11:53 06/17/19 11:53 06/17/19 11:53 Oxygen Devices in Use Now: None Appearance: Male sitting in bed in NAD Eyes: No Scleral Icterus Ears/Nose/Mouth/Throat: Mucous Membranes Moist Neck: NL Appearance and Movements; NL JVP Respiratory: Symmetrical Chest Expansion and Respiratory Effort, Clear to Auscultation Cardiovascular: NL Sounds; No Murmurs; No JVD, No Edema Abdominal: NL Sounds; No Tenderness; No Distention Extremities: No Edema Skin: - - Gangrenous changes to left toes 3-5 Neurological: Alert and Oriented x 3, NL Muscle Strength and Tone Nutrition: Taking PO's Result Diagrams: 06/17/19 05:52 06/17/19 05:52 Microbiology and Other Data: Microbiology 06/16/19 12:40 Nasal Screen MRSA (PCR) - Final Nasal Mrsa Not Detected Assess/Plan/Problems-Billing Assessment: Ms. Sepulveda is a 48 yo M with a PMH of type 2 DM, ESRD who was admitted on with gangrenous changes to his left foot. - Patient Problems (1) Gangrene of left foot Comment: - Toes 3-5, infection since at least February 2019, - Hx of diabetes and abnormal ABIs - Appreciate consultation from Dr Phillips, plan for pelvic and bilateral lower extremity arteriography, will require HD within 24 hours of procedure - Continue cefepime and metronidazole - MRI of left foot pending - Cardiac risk stratification outlined in H&P, RCRI is 2, plan for echocardiogram but no further cardiac testing (2) Sepsis Comment: - Does not meet strict sepsis criteria as only WBC elevated (3) ESRD (end stage renal disease) Comment: - Continue HD per routine - Continue calcitriol (4) Diabetes Comment: - HgbA1c 7.3 - Had been off home meds - Continue lispro SSI coverage for meals (5) Anemia Comment: - Most likely secondary to ESRD. Continue ferrous sulfate supplemenation. Recheck labs later this week. (6) HTN (hypertension) Comment: - SBP 100s - Continue amlodipine, metoprolol, and lisinopril. (7) Hyperbilirubinemia Comment: - Chronic problem, suspected cirrhosis - Liver US pending (8) DVT prophylaxis Comment: SQ heparin (9) Full code status Comment: Status and Disposition: Inpatient. May need rehab.
--- NOTE | 2019-06-17 16:00 | PN ---
Progress Note - Progress Note Date of Service: 06/17/19 SOAP: Subjective: resting comfortably, no complaints Objective: Vital Signs Temp Pulse Resp BP Pulse Ox 98.9 F 77 16 148/81 98 06/17/19 15:40 06/17/19 15:40 06/17/19 15:40 06/17/19 15:40 06/17/19 15:40 Laboratory Last Values WBC 16.5 10^3/uL (3.5-10.8) H 06/17/19 05:52 RBC 3.92 10^6 /uL (4.18-5.48) L 06/17/19 05:52 Hgb 11.2 g/dL (14.0-18.0) L 06/17/19 05:52 Hct 34 % (42-52) L 06/17/19 05:52 MCV 88 fL (80-94) 06/17/19 05:52 MCH 29 pg (27-31) 06/17/19 05:52 MCHC 33 g/dL (31-36) 06/17/19 05:52 RDW 16 % (10-15) H 06/17/19 05:52 Plt Count 414 10^3/uL (150-450) 06/17/19 05:52 MPV 8.6 fL (7.4-10.4) 06/17/19 05:52 Neut % (Auto) 81.9 % 06/16/19 11:29 Lymph % (Auto) 6.9 % 06/16/19 11:29 [place] % (Auto) 9.1 % 06/16/19 11:29 Eos % (Auto) 1.4 % 06/16/19 11:29 Baso % (Auto) 0.7 % 06/16/19 11:29 Absolute Neuts (auto) 11.7 10^3/ul (1.5-7.7) H 06/16/19 11:29 Absolute Lymphs (auto) 1.0 10^3/ul (1.0-4.8) 06/16/19 11:29 Absolute Monos (auto) 1.3 10^3/ul (0-0.8) H 06/16/19 11:29 Absolute Eos (auto) 0.2 10^3/ul (0-0.6) 06/16/19 11:29 Absolute Basos (auto) 0.1 10^3/ul (0-0.2) 06/16/19 11:29 Absolute Nucleated RBC 0.0 10^3/ul 06/16/19 11:29 Nucleated RBC % 0.1 06/16/19 11:29 Sodium 134 mmol/L (135-145) L 06/17/19 05:52 Potassium 4.3 mmol/L (3.5-5.0) 06/17/19 05:52 Chloride 91 mmol/L (101-111) L 06/17/19 05:52 Carbon Dioxide 28 mmol/L (22-32) 06/17/19 05:52 Anion Gap 15 mmol/L (2-11) H 06/17/19 05:52 BUN 39 mg/dL (6-24) H 06/17/19 05:52 Creatinine 5.95 mg/dL (0.67-1.17) H 06/17/19 05:52 Est GFR ( Amer) 12.3 (>60) 06/17/19 05:52 Est GFR (Non-Af Amer) 10.2 (>60) 06/17/19 05:52 BUN/Creatinine Ratio 6.6 (8-20) L 06/17/19 05:52 Glucose 77 mg/dL (70-100) 06/17/19 05:52 POC Glucose (mg/dL) 99 mg/dL (70-100) 06/17/19 12:06 Hemoglobin A1c 7.3 % (4.0-5.6) H 06/16/19 11:29 Calcium 7.6 mg/dL (8.6-10.3) L 06/17/19 05:52 Total Bilirubin 5.10 mg/dL (0.2-1.0) H 06/16/19 11:29 AST 25 U/L (13-39) 06/16/19 11:29 ALT 20 U/L (7-52) 06/16/19 11:29 Alkaline Phosphatase 173 U/L (34-104) H 06/16/19 11:29 C-Reactive Protein 159.66 mg/L (<8.01) H 06/16/19 11:29 Total Protein 9.1 g/dL (6.4-8.9) H 06/16/19 11:29 Albumin 3.5 g/dL (3.2-5.2) 06/16/19 11:29 Globulin 5.6 g/dL (2-4) H 06/16/19 11:29 Albumin/Globulin Ratio 0.6 (1-3) L 06/16/19 11:29 Left LE 3-5 toes gangrenous, diminished sensation, diminished cap refill Assessment: LLE gangrenous toes 3-5; RLE infection Plan: 1) continue Abx 2) continue SCD's 3) Plan for angio tomorrow with Dr. Phillips
--- NOTE | 2019-06-17 16:02 | PN ---
Progress Note - Progress Note Date of Service: 06/17/19 - Nephrology progress note Note: I stopped by to see the patient twice in his room today: fisrt time he was undergoing a vascular ultrasound procedure I was not able to visit with him and the second time he was not in his room. Plan for dialysis for tomorrow. [facility] allows dialysis to be started only until around 11: 00 in the am , please call me if there will be any scheduling conflict with his other procedure. Thank you
[2019-06-17] MEDS: Acetaminophen TAB* 325 MG PO PRN (17:58)
--- NOTE | 2019-06-17 20:03 | CONS ---
CONSULTATION REPORT: DATE OF CONSULT: 06/17/19 PRIMARY CARE PROVIDER: None. PROVIDER REQUESTING CONSULTATION: KAVITA Conrad CONSULTING SERVICE: Infectious Diseases. PROVIDER: Dat Mckinney NP ATTENDING PROVIDER: Dr. Benito Restrepo.* (DICTATED BY DAT CMKINNEY NP) REASON FOR CONSULTATION: Concern for bilateral foot infections in the setting of gangrene. IMPRESSION: 1. Bilateral feet with gangrene. This involves the left third to fifth toes and the right fifth toe. Plain film x-rays without any signs of osteomyelitis. Given the length of time that the patient has had these wounds, he likely has an underlying osteomyelitis. He is unable to undergo MRI as he was unable to cooperate with the exam. He has been seen by Orthopedics, who feels he will likely need a left TMA and a right fifth ray amputation. He has been seen in consult by Vascular as he has signs of significant atherosclerosis. He continues to have leukocytosis. He is afebrile. He has an elevated CRP. It does not appear any cultures have been taken thus far from the foot. In the setting of bilateral lower extremity arterial insufficiency. 2. Diabetes mellitus type 2. The patient is off all diabetic medications. 3. End-stage renal disease, on hemodialysis. 4. Hyperbilirubinemia. He had an abdominal ultrasound showing increased pulsatility of the hepatic and portal veins often seen in the setting of right heart failure. Hepatomegaly with small volume ascites. He has chronically had elevated total bilirubin in the past. 5. Tobacco abuse. RECOMMENDATIONS/PLAN: Recommend continuing cefepime, vancomycin with trough goal 15-20, and Flagyl at this time. If there is an area to culture, we could attempt to culture this. In the setting of chronic wounds, the wounds are likely colonized and this may not provide good yield of information, we will await operative cultures. We will continue to follow along. Final recommendations will be based of the patient's clinical course and any culture results. HISTORY OF PRESENT ILLNESS: Mr. Sepulveda is a 48-year-old male with past medical history significant for diabetes mellitus type 2, end-stage renal disease, hypertension, tobacco abuse. The patient is an incredibly poor historian, but he states that around Kin time, he had noticed that the third through fifth toes on his left foot had began to turn black. He noted that the skin had dried. He denies any other complaints, but due to developing severe pain in the left foot and difficulty walking, he decided to present to the hospital for further evaluation. While in the ER, the patient further elaborated that for approximately 1 month, he has had drainage from the left foot at the base of toes 3 to 5. Additionally , he has an ulcer to the medial aspect of his left heel. Previously, there had been a callus at this location that "fell off and left a divot." The patient additionally had noticed that his right fifth toe had turned black that he thinks had been ongoing for a few weeks, but was unsure of the length of time. He has been having a poor appetite that has been a chronic issue for him. He had a left foot x-ray showing extensive calcifications, poorly characterized ulcerations about the third through fifth toes on the left, no radiographic evidence of osteomyelitis, moderate first MTP osteoarthropathy. and calcaneus enthesophytes. Additionally, he had a right foot x-ray revealing extensive vascular calcifications, osteopenia with no fracture or katy erosion, and again calcaneal enthesophytes. He had labs showing a leukocytosis with a white blood cell count of 14.3, elevated creatinine, elevated total bilirubin, alk phos 173, CRP 159.66, hemoglobin A1c of 7.3, afebrile. He was referred to the hospitalist service for admission. While in the hospital, he was seen in consultation by Orthopedic Surgery, who recommended a vascular consult, bilateral lower extremity MRIs, vancomycin, cefepime, and Flagyl. It was felt that he will likely need a transmetatarsal amputation of the left foot and at least a right fifth ray amputation with their final recommendations being based off of the vascular assessment and MRI findings. He had ABIs showing noncompressible dorsal pedis with findings consistent with calcified atherosclerosis with significant arterial flow reduction, but ultimately this was limited due to the patient's inability to remain still during the procedure. Additionally, the patient has had a transthoracic echocardiogram showing an EF of 40% to 45%, trace mitral valve regurgitation, severe tricuspid valve regurgitation which is without a significant change since 2016. The patient then had bilateral lower extremity arterial duplex showing widespread flow-limiting atherosclerosis causing foci of stenosis and potential occlusion as described in the body of the paragraph. The patient was unable to lie still for MRIs. He has remained afebrile. Leukocytosis increased today. PAST MEDICAL HISTORY: 1. Hypertension. 2. Diabetes mellitus type 2. 3. End-stage renal disease, on hemodialysis. 4. History of hyperkalemia. PAST SURGICAL HISTORY: 1. Status post insertion of a tunneled hemodialysis catheter in 2016. 2. Status post placement of AV fistula in the right upper arm. HOME MEDICATIONS: 1. Nitroglycerin 0.4 mg sublingual every 5 minutes as needed for chest pain. 2. Benadryl 50 mg by mouth daily as needed for allergies. 3. Benadryl 25 mg by mouth daily as needed for itching. 4. Acetaminophen 650 mg by mouth every 4 hours as needed for pain. 5. Calcitriol 0.75 mcg by mouth twice daily. 6. Patiromer 8.4 g by mouth daily. 7. Ferric citrate 630 mg by mouth 3 times daily. 8. Metoprolol tartrate 25 mg by mouth daily. 9. Amlodipine 10 mg by mouth daily. 10. Lisinopril 40 mg by mouth daily. ALLERGIES: DOXERCALCIFEROL and MORPHINE. FAMILY HISTORY: Mother healthy at age 66. Father passed from a CVA, reportedly at age 55. SOCIAL HISTORY: The patient is a current smoker, smoking half a pack a day, previously 1 pack a day smoker, smoking for 20 years. He denies alcohol or recreational drug use. REVIEW OF SYSTEMS: I performed a 10-point review of systems, all the pertinent positives and negatives are mentioned in the history of present illness, remaining review of systems are negative. PHYSICAL EXAMINATION: Vital Signs: Temperature 98.9, heart rate 67, respiratory rare 18, O2 sat 98% on room air, blood pressure 104/57. General Appearance: The patient is alert, appears to be in no acute distress. Head: Normocephalic, atraumatic. EENT: Extraocular movements are intact. No subconjunctival hemorrhage. Moist mucous membranes. Neck: Supple. There is no lymphadenopathy noted. Neurological: He is alert, oriented to person and place. Cranial nerves II through XII are grossly intact. Cardiovascular: Regular rate and rhythm. S1 and S2 present. No murmurs, rubs, or gallops heard. Respiratory: Lungs are clear to auscultation. There is no accessory muscle use. Abdomen: Bowel sounds present. Abdomen is large, soft, nontender. Extremities: No lower extremity edema. Psychological: The patient is restless, poor historian, cooperative with exam. Skin: No rashes seen. The left third through fifth toes with dry black eschar and what appears to be purulent area at the base of the third toe with mild associated erythema at the base of the necrotic areas. There is a foul smell. Additionally, the right fifth toe is dry, black, and necrotic. He is noted to have a small dry ulceration to the medial aspect of the left heel. Additionally, the second and third toes have necrotic tissue on the toes with the 2 toes touch. Again, this foot is foul smelling also. DIAGNOSTIC STUDIES/LAB DATA: Sodium 134, potassium 4.3, chloride 91, CO2 of 18 , BUN is 39, creatinine 5.95, glucose 77. White blood cell count 16.5, hemoglobin 11.2, hematocrit 34, platelet count 414. CRP 159.66 on admission. Hemoglobin A1c 7.3. Total bilirubin 5.10, alk phos 173. Please see impression and recommendations outlined above, recommendations have been discussed with Dr. Rickie Crooks. Thank you for asking us to see Mr. Sepulveda in consultation. The case has been discussed with my attending, Dr. Benito Restrepo, who agrees with the plan of care. Reviewed by CHARLENE HATFIELD 06/20/192003 [id number]/[facility] #: [id number] MTDD
[2019-06-18] MEDS ORDERED: LORazepam TAB(*) 1 MG PO PRN (00:46)
[2019-06-18] MEDS: Nicotine PATCH 21 MG/24 HR* PATCH TRANSDERM SCH ×2 (01:27→11:42)
[2019-06-18] MEDS: Heparin VIAL(*) 5000 UNITS/ML VIAL (FIVE THOUSAND) SUBCUT SCH ×3 (05:23→21:51)
[2019-06-18] MEDS: Insulin LISPRO* 1 UNITS UNIT SUBCUT SCH ×4 (08:10→21:21)
[2019-06-18] MEDS: amLODIPine TAB* 5 MG PO SCH (11:40)
[2019-06-18] MEDS: Lisinopril TAB* 10 MG PO SCH (11:40)
[2019-06-18] MEDS: Metoprolol Tartrate TAB* 25 MG PO SCH (11:41)
[2019-06-18] MEDS: metroNIDAZOLE TAB* 250 MG PO SCH ×2 (11:41→21:50)
[2019-06-18] MEDS: Patiromer POWDER* 8.4 GM PAK PO SCH (11:41)
[2019-06-18] MEDS: Calcitriol CAP* 0.25 MCG PO SCH ×2 (11:41→21:50)
[2019-06-18] MEDS: Cefepime(*) 0.5 GM in NS 0.9% 50 ML* 50 ML IVPB SCH ×2 (12:24→15:33)
[2019-06-18] MEDS: Morphine INJ* 4 MG/ML 1 ML SYRINGE (NEW SYRINGE VERSION) IV PRN (12:32)
[2019-06-18] MEDS: Ondansetron INJ* 2 MG/ML VIAL IV PRN (12:33)
--- NOTE | 2019-06-18 14:10 | PN ---
Subjective Date of Service: 06/18/19 Interval History: Mr. Sepulveda reports that he is doing well. He is concerned about the procedures and surgeries he will need but understands their importance. Objective Active Medications: Acetaminophen (Tylenol Tab*) 650 mg PO Q4H PRN Amlodipine Besylate (Norvasc Tab*) 10 mg PO DAILY [facility] Calcitriol (Rocaltrol Cap*) 0.75 mcg PO BID [facility] Dextrose (D50w Syringe 50 Ml*) 12.5 gm IV PUSH .FOR FS < 60 - SS PRN Heparin Sodium (Porcine) (Heparin Vial(*)) 5,000 units SUBCUT Q8HR [facility] Cefepime HCl 0.5 gm/ Sodium (Chloride) 50 mls @ 100 mls/hr IVPB MoWeFr@1600 [facility] Insulin Human Lispro (Humalog*) 0 units SUBCUT ACHS [facility]; Protocol Lisinopril (Prinivil Tab*) 40 mg PO DAILY [facility] Lorazepam (Ativan Tab(*)) 1 mg PO Q6H PRN Metoprolol Tartrate (Lopressor Tab*) 25 mg PO DAILY [facility] Metronidazole (Flagyl Tab*) 500 mg PO BID [facility] Miscellaneous (Ativan Pyxis Avila) 1 ea N/A .ATIVAN IV AVILA PRN Miscellaneous (Ativan Pyxis Avila) 1 ea N/A .ATIVAN IV AVILA PRN Morphine Sulfate (Morphine Inj (Syringe)*) 4 mg IV Q4H PRN Nicotine (Nicotine Patch 21 Mg/24 Hr*) 1 patch TRANSDERM DAILY [facility] Ondansetron HCl (Zofran Inj*) 4 mg IV Q4H PRN Oxycodone/Acetaminophen (Percocet 5/325 Tab*) 1 tab PO Q6H PRN Patiromer (Veltassa Powder*) 8.4 gm PO DAILY [facility] Pharmacy Profile Note (Nicotine Patch Removal Note*) 1 note PATCH OFF 2100 [facility] Vital Signs: Temp Pulse Resp BP Pulse Ox 98 F 85 18 150/94 100 06/18/19 12:27 06/18/19 12:27 06/18/19 13:35 06/18/19 12:27 06/18/19 12:27 Oxygen Devices in Use Now: None Appearance: Male lying in bed in NAD Eyes: No Scleral Icterus Ears/Nose/Mouth/Throat: Mucous Membranes Moist Neck: Trachea Midline Respiratory: Symmetrical Chest Expansion and Respiratory Effort, Clear to Auscultation Cardiovascular: NL Sounds; No Murmurs; No JVD, No Edema Abdominal: NL Sounds; No Tenderness; No Distention Extremities: No Edema Skin: No Rash or Ulcers Neurological: Alert and Oriented x 3, NL Muscle Strength and Tone Nutrition: Taking PO's Result Diagrams: 06/17/19 05:52 06/17/19 05:52 Assess/Plan/Problems-Billing Assessment: Ms. Sepulveda is a 48 yo M with a PMH of type 2 DM, ESRD who was admitted on with gangrenous changes to his left foot. - Patient Problems (1) Gangrene of left foot Comment: - Toes 3-5, infection since at least February 2019, - Hx of diabetes and abnormal ABIs - Appreciate consultation from Dr Phillips, plan for pelvic and bilateral lower extremity arteriography, will require HD within 24 hours of procedure - Continue cefepime and metronidazole and vanco - Cardiac risk stratification outlined in H&P, RCRI is 2, plan for echocardiogram but no further cardiac testing, Patient likely has moderate to more likely severe PULMONARY HYPERTENSION based on echo history. (2) Sepsis Comment: - Does not meet strict sepsis criteria as only WBC elevated (3) ESRD (end stage renal disease) Comment: - Continue HD per routine, done 06/17 - Continue calcitriol (4) Systolic CHF, chronic Comment: - Asymptomatic - EF 40-45% - Severe tricuspid regurg - Likely mod-severe pulmonary hypertension based on previous echo from 2016, unable to visualize on current echo (5) Diabetes Comment: - HgbA1c 7.3 - Had been off home meds - Continue lispro SSI coverage for meals (6) Anemia Comment: - Most likely secondary to ESRD. Continue ferrous sulfate supplemenation. (7) HTN (hypertension) Comment: - SBP 100s - Continue amlodipine, metoprolol, and lisinopril. (8) Hyperbilirubinemia Comment: - Chronic problem, documented history of alcoholic cirrhosis - Liver US with hepatomegaly and small amount of ascites - Will need outpatient follow up with GI (9) DVT prophylaxis Comment: SQ heparin (10) Full code status Comment: Status and Disposition: Inpatient. May need rehab.
[2019-06-18] MEDS ORDERED: Lidocaine 1% INJ* 10 MG/ML 30 ML SDV ONE (15:59)
[2019-06-18] MEDS ORDERED: Iodixanol 320 (CONTRAST) 100 ML SDV ONE (15:59)
[2019-06-18] MEDS ORDERED: Heparin 2 UNITS/ML IVPREMIX* 2,000 ML IV ONE (15:59)
[2019-06-18] MEDS ORDERED: fentaNYL* 50 MCG/ML 2 ML VIAL (100 MCG VIAL) ONE ×2 (16:12→17:22)
[2019-06-18] MEDS ORDERED: Midazolam* 1 MG/ML 5 ML VIAL (5 MG) ONE (16:12)
[2019-06-18] MEDS ORDERED: Metoprolol Tartrate IV* 1 MG/ML 5 ML VIAL ONE ×2 (16:55→19:18)
[2019-06-18] MEDS ORDERED: Vancomycin per Pharmacy* NOTE FOLLOW UP SCH (17:00)
[2019-06-18] MEDS ORDERED: Vancomycin 1500 MG IV - x ONCE IVPB ONE ×2 (17:00)
[2019-06-18] MEDS ORDERED: Heparin(*) 1000 UNIT/ML 10 ML VIAL CATH LAB IV ONE (17:06)
--- NOTE | 2019-06-18 19:10 | PN ---
Progress Note - Progress Note Date of Service: 06/18/19 - Nephrology Note: Chief complaint: End-stage renal disease on hemodialysis Friday History of present illness: Patient is a very nice 48-year-old gentleman who gets hemodialysis at the [facility] outpatient dialysis unit. He was admitted for gangrenous toes. Today is his regular dialysis day. I saw him during his maintenance dialysis treatment which she tolerated very well. He was due for angiogram later in the day. Patient was sleeping during dialysis but easily arousable. Hemodynamically he was stable. Fluid removal was progressing without any difficulties. On exam: Vitals were stable. Temp Pulse Resp BP SpO2 FiO2 97.9 F 92 18 150/74 99 06/18/19 15:44 06/18/19 15:44 06/18/19 15:44 06/18/19 15:44 06/18/19 15:44 Chest clear to auscultation Heart showed S1, S2 regular rate and rhythm, extremities with trace edema Acetaminophen (Tylenol Tab*) 650 mg PO Q4H PRN PRN Reason: PAIN - MODERATE Last Admin: 06/17/19 17:58 Dose: 650 mg Amlodipine Besylate (Norvasc Tab*) 10 mg PO DAILY [facility] Last Admin: 06/18/19 11:40 Dose: Not Given Calcitriol (Rocaltrol Cap*) 0.75 mcg PO BID [facility] Last Admin: 06/18/19 11:41 Dose: Not Given Dextrose (D50w Syringe 50 Ml*) 12.5 gm IV PUSH .FOR FS < 60 - SS PRN PRN Reason: FS < 60 Heparin Sodium (Porcine) (Heparin Vial(*)) 5,000 units SUBCUT Q8HR [facility] Last Admin: 06/18/19 12:44 Dose: Not Given Cefepime HCl 0.5 gm/ Sodium (Chloride) 50 mls @ 100 mls/hr IVPB MoWeFr@1600 [facility] Last Admin: 06/18/19 15:33 Dose: 100 mls/hr Insulin Human Lispro (Humalog*) 0 units SUBCUT ACHS [facility]; Protocol Last Admin: 06/18/19 17:51 Dose: Not Given Lisinopril (Prinivil Tab*) 40 mg PO DAILY [facility] Last Admin: 06/18/19 11:40 Dose: Not Given Lorazepam (Ativan Tab(*)) 1 mg PO Q6H PRN PRN Reason: ANXIETY Last Admin: 06/18/19 01:26 Dose: 1 mg Metoprolol Tartrate (Lopressor Tab*) 25 mg PO DAILY [facility] Last Admin: 06/18/19 11:41 Dose: Not Given Metronidazole (Flagyl Tab*) 500 mg PO BID [facility] Last Admin: 06/18/19 11:41 Dose: Not Given Miscellaneous (Ativan Pyxis Avila) 1 ea N/A .ATIVAN IV AVILA PRN PRN Reason: PYXIS AVILA Morphine Sulfate (Morphine Inj (Syringe)*) 4 mg IV Q4H PRN PRN Reason: PAIN - SEVERE Last Admin: 06/18/19 12:32 Dose: 4 mg Nicotine (Nicotine Patch 21 Mg/24 Hr*) 1 patch TRANSDERM DAILY [facility] Last Admin: 06/18/19 11:42 Dose: Not Given Ondansetron HCl (Zofran Inj*) 4 mg IV Q4H PRN PRN Reason: NAUSEA Last Admin: 06/18/19 12:33 Dose: 4 mg Oxycodone/Acetaminophen (Percocet 5/325 Tab*) 1 tab PO Q6H PRN PRN Reason: PAIN - MODERATE Last Admin: 06/17/19 21:59 Dose: 1 tab Patiromer (Veltassa Powder*) 8.4 gm PO DAILY [facility] Last Admin: 06/18/19 11:41 Dose: Not Given Pharmacy Consult (Vancomycin Per Pharmacy*) 1 note FOLLOW UP .VANC PER PHARMACY [facility]; Protocol Pharmacy Consult (Vancomycin Random Level*) 1 note FOLLOW UP 0600 ONE Stop: 06/21/19 06:01 Pharmacy Profile Note (Nicotine Patch Removal Note*) 1 note PATCH OFF 2100 [facility] Assessment and plan: End-stage kidney disease due to diabetes mellitus type 2 on hemodialysis. Maintenance Dialysis today. Hypertension Well controlled continue home blood pressure medications Diabetes mellitus type 2 with many complications. Per primary team Peripheral vascular disease with gangrenous toes. Angiogram today possible toe amputation.
--- NOTE | 2019-06-18 20:15 | BRIEFOPN ---
Brief Operative/Procedure Note - Operation Details Pre-Op Diagnosis: Gangrenous left forefoot with advanced calcified atherosclorosis. Post-Op Diagnosis: Same Procedures: 1. Pelvic and lower extremity arteriography with mostly Carbdon Dioxide gas and 18 mL of Visipaque 320. 2. Revasculariztaion and stenting of occluded proximal left SFA. 3. Revascularization and balloon angioplasty of left Anterior Tibial Artery and Tibioperoneal Trunk. 4. Percutaneous closure of right common femoral arteriotomy with 6 Bulgarian AngioSeal. Surgeon(s)/Proceduralists: Valerio Phillips M.D. Anesthesia: Conscious sedation (Fentanyl & Versed) and local 1% lidocaine ar right common femoral arteriotomy. Estimated Blood Loss: Minimal Findings: Occluded proximal left SFA. Occluded origin of left DANIEL. Near occlusion at left Tibioperoneal trunk (TPT) above bifuction. 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 Specimen(s)/Culture(s) Description: 1. Stenting of left SFA. 2. Balloon angioplasty of left DANIEL and TPT. Complications: None
[2019-06-18] MEDS ORDERED: Clopidogrel TAB* 300 MG PO ONE (20:19)
[2019-06-18] MEDS ORDERED: amLODIPine TAB* 5 MG PO ONE (21:23)
[2019-06-18] MEDS ORDERED: Lisinopril TAB* 10 MG PO ONE (21:23)
[2019-06-18] MEDS ORDERED: Metoprolol Tartrate TAB* 25 MG PO ONE (21:24)
[2019-06-18] MEDS: Aspirin 81 mg CHEW TAB* 81 MG TAB.CHEW PO SCH (21:51)
[2019-06-18] MEDS: Nicotine Patch Removal NOTE PATCH OFF SCH (22:01)
[2019-06-18] MEDS: Acetaminophen TAB* 325 MG PO PRN (22:15)
[2019-06-18] MEDS: oxyCODONE/Acetamin 5/325 MG* TAB PO PRN (23:43)
[2019-06-19 05:05] LABS: Hematocrit 34 % (42-52); Hemoglobin 11.5 g/dL (14.0-18.0); Mean Corpuscular HGB Conc 33 g/dL (31-36); Mean Corpuscular Hemoglobin 29 pg (27-31); Mean Corpuscular Volume 87 fL (80-94); Mean Platelet Volume 8.8 fL (7.4-10.4); Platelet Count 474 10^3/uL (150-450); Red Blood Count 3.96 10^6 /uL (4.18-5.48); Red Cell Distribution Width 16 % (10-15); White Blood Count 17.9 10^3/uL (3.5-10.8)
[2019-06-19 05:07] LABS: ABS Basophils 0.1 10^3/ul (0-0.2); ABS Eosinophils 0.1 10^3/ul (0-0.6); ABS Lymphocytes 1.3 10^3/ul (1.0-4.8); ABS Monocytes 1.8 10^3/ul (0-0.8); ABS Neutrophils 14.6 10^3/ul (1.5-7.7); ABS Nucleated RBC 0.1 10^3/ul; Eosinophil % 0.8 %; Lymphocyte % 7.1 %; Nucleated Red Blood Cells % 0.4
[2019-06-19 05:21] LABS: BUN/Creatinine Ratio 6.3 (8-20); Calcium 8.1 mg/dL (8.6-10.3); EGFR African American 11.1 (>60); EGFR Non-African American 9.2 (>60); Potassium 4.6 mmol/L (3.5-5.0)
[2019-06-19] MEDS: Heparin VIAL(*) 5000 UNITS/ML VIAL (FIVE THOUSAND) SUBCUT SCH ×3 (05:38→23:00)
[2019-06-19] MEDS: Insulin LISPRO* 1 UNITS UNIT SUBCUT SCH ×4 (08:49→21:07)
[2019-06-19] MEDS: Lisinopril TAB* 10 MG PO SCH (10:35)
[2019-06-19] MEDS: Calcitriol CAP* 0.25 MCG PO SCH ×2 (10:35→21:07)
[2019-06-19] MEDS: Patiromer POWDER* 8.4 GM PAK PO SCH (10:35)
[2019-06-19] MEDS: amLODIPine TAB* 5 MG PO SCH (10:36)
[2019-06-19] MEDS: Aspirin 81 mg CHEW TAB* 81 MG TAB.CHEW PO SCH (10:36)
[2019-06-19] MEDS: metroNIDAZOLE TAB* 250 MG PO SCH ×2 (10:36→21:07)
[2019-06-19] MEDS: Metoprolol Tartrate TAB* 25 MG PO SCH (10:36)
[2019-06-19] MEDS: Clopidogrel TAB* 75 MG PO SCH (10:36)
[2019-06-19] MEDS: Nicotine PATCH 21 MG/24 HR* PATCH TRANSDERM SCH (10:37)
[2019-06-19] MEDS: oxyCODONE/Acetamin 5/325 MG* TAB PO PRN ×2 (10:42→18:09)
--- NOTE | 2019-06-19 12:17 | PN ---
Progress Note - Progress Note Date of Service: 06/19/19 SOAP: Subjective: Patient seen and examined OOB in chair. Patient complains of left foot pain. He seems unable to keep his legs still but seems unrelated to pain. He denies CP, SOB, f/c. Objective: [Gen: NAD OOB in chair. Unable to answer all questions, keeping eyes shut most of the time Left foot: Gangrenous toes 3-5, dry dressing applied today. Skin breakdown/ ulcer medial heel, also covered with dry dressing. No drainage. Unable to palpate pulse but obtained through doppler per nursing. Calf soft and NT without palpable cords. Right foot: 5th toe blackened, no drainage, skin breakdown between toes. Dry dressing placed today. Calf soft and NT without palpable cords. Assessment: LLE gangrenous toes 3-5; RLE infection 5th toe Plan: [Cont IV ABX per hosp/ID Cont sq heparin ppx Cont pain management as needed Angio done yesterday Patient case discussed with Dr. Crooks. Plan will be for Left 3-5 toe TM amp on Friday with Dr. Rondon. Patient would benefit from MRI evaluation of OM but patient is unable to keep legs still. NPO after midnight 06/19 for planned surgery Friday Keep dry dressing on, can be changed by nursing. Laboratory Last Values WBC 17.9 10^3/uL (3.5-10.8) H 06/19/19 04:45 RBC 3.96 10^6 /uL (4.18-5.48) L 06/19/19 04:45 Hgb 11.5 g/dL (14.0-18.0) L 06/19/19 04:45 Hct 34 % (42-52) L 06/19/19 04:45 MCV 87 fL (80-94) 06/19/19 04:45 MCH 29 pg (27-31) 06/19/19 04:45 MCHC 33 g/dL (31-36) 06/19/19 04:45 RDW 16 % (10-15) H 06/19/19 04:45 Plt Count 474 10^3/uL (150-450) H D 06/19/19 04:45 MPV 8.8 fL (7.4-10.4) 06/19/19 04:45 Neut % (Auto) 81.4 % 06/19/19 04:45 Lymph % (Auto) 7.1 % 06/19/19 04:45 Powell % (Auto) 10.1 % 06/19/19 04:45 Eos % (Auto) 0.8 % 06/19/19 04:45 Baso % (Auto) 0.6 % 06/19/19 04:45 Absolute Neuts (auto) 14.6 10^3/ul (1.5-7.7) H 06/19/19 04:45 Absolute Lymphs (auto) 1.3 10^3/ul (1.0-4.8) 06/19/19 04:45 Absolute Monos (auto) 1.8 10^3/ul (0-0.8) H 06/19/19 04:45 Absolute Eos (auto) 0.1 10^3/ul (0-0.6) 06/19/19 04:45 Absolute Basos (auto) 0.1 10^3/ul (0-0.2) 06/19/19 04:45 Absolute Nucleated RBC 0.1 10^3/ul 06/19/19 04:45 Nucleated RBC % 0.4 06/19/19 04:45 POC Activ Clotting Time 251 seconds 06/18/19 17:24 Sodium 137 mmol/L (135-145) 06/19/19 04:45 Potassium 4.6 mmol/L (3.5-5.0) 06/19/19 04:45 Chloride 96 mmol/L (101-111) L 06/19/19 04:45 Carbon Dioxide 27 mmol/L (22-32) 06/19/19 04:45 Anion Gap 14 mmol/L (2-11) H 06/19/19 04:45 BUN 41 mg/dL (6-24) H 06/19/19 04:45 Creatinine 6.52 mg/dL (0.67-1.17) H 06/19/19 04:45 Est GFR ( Amer) 11.1 (>60) 06/19/19 04:45 Est GFR (Non-Af Amer) 9.2 (>60) 06/19/19 04:45 BUN/Creatinine Ratio 6.3 (8-20) L 06/19/19 04:45 Glucose 128 mg/dL (70-100) H 06/19/19 04:45 POC Glucose (mg/dL) 210 mg/dL (70-100) H 06/19/19 12:01 Hemoglobin A1c 7.3 % (4.0-5.6) H 06/16/19 11:29 Calcium 8.1 mg/dL (8.6-10.3) L 06/19/19 04:45 Total Bilirubin 5.10 mg/dL (0.2-1.0) H 06/16/19 11:29 AST 25 U/L (13-39) 06/16/19 11:29 ALT 20 U/L (7-52) 06/16/19 11:29 Alkaline Phosphatase 173 U/L (34-104) H 06/16/19 11:29 C-Reactive Protein 159.66 mg/L (<8.01) H 06/16/19 11:29 Total Protein 9.1 g/dL (6.4-8.9) H 06/16/19 11:29 Albumin 3.5 g/dL (3.2-5.2) 06/16/19 11:29 Globulin 5.6 g/dL (2-4) H 06/16/19 11:29 Albumin/Globulin Ratio 0.6 (1-3) L 06/16/19 11:29 Vital Signs Temp Pulse Resp BP Pulse Ox 97.3 F 82 16 143/73 98 06/19/19 09:16 06/19/19 09:16 06/19/19 10:42 06/19/19 09:16 06/19/19 09:16
--- NOTE | 2019-06-19 13:52 | PN ---
Subjective Date of Service: 06/19/19 Interval History: Mr. Sepulveda denies complaint today. No issues identified by nursing staff. Objective Active Medications: Acetaminophen (Tylenol Tab*) 650 mg PO Q4H PRN Amlodipine Besylate (Norvasc Tab*) 10 mg PO DAILY [facility] Aspirin (Aspirin 81 Mg Chew Tab*) 81 mg PO DAILY [facility] Calcitriol (Rocaltrol Cap*) 0.75 mcg PO BID [facility] Clopidogrel Bisulfate (Plavix Tab*) 75 mg PO DAILY [facility] Stop: 09/17/19 08:59 Last Admin: 06/19/19 10:36 Dose: 75 mg Dextrose (D50w Syringe 50 Ml*) 12.5 gm IV PUSH .FOR FS < 60 - SS PRN PRN Reason: FS < 60 Heparin Sodium (Porcine) (Heparin Vial(*)) 5,000 units SUBCUT Q8HR [facility] Last Admin: 06/19/19 13:35 Dose: 5,000 units Cefepime HCl 0.5 gm/ Sodium (Chloride) 50 mls @ 100 mls/hr IVPB MoWeFr@1600 [facility] Last Admin: 06/18/19 15:33 Dose: 100 mls/hr Insulin Human Lispro (Humalog*) 0 units SUBCUT ACHS [facility]; Protocol Last Admin: 06/19/19 13:36 Dose: 6 units Lisinopril (Prinivil Tab*) 40 mg PO DAILY [facility] Last Admin: 06/19/19 10:35 Dose: 40 mg Lorazepam (Ativan Tab(*)) 1 mg PO Q6H PRN PRN Reason: ANXIETY Last Admin: 06/18/19 01:26 Dose: 1 mg Metoprolol Tartrate (Lopressor Tab*) 25 mg PO DAILY [facility] Last Admin: 06/19/19 10:36 Dose: 25 mg Metronidazole (Flagyl Tab*) 500 mg PO BID [facility] Last Admin: 06/19/19 10:36 Dose: 500 mg Miscellaneous (Ativan Pyxis Benavides) 1 ea N/A .ATIVAN IV BENAVIDES PRN PRN Reason: PYXIS BENAVIDES Morphine Sulfate (Morphine Inj (Syringe)*) 4 mg IV Q4H PRN PRN Reason: PAIN - SEVERE Last Admin: 06/18/19 12:32 Dose: 4 mg Nicotine (Nicotine Patch 21 Mg/24 Hr*) 1 patch TRANSDERM DAILY [facility] Last Admin: 06/19/19 10:37 Dose: 1 patch Ondansetron HCl (Zofran Inj*) 4 mg IV Q4H PRN PRN Reason: NAUSEA Last Admin: 06/18/19 12:33 Dose: 4 mg Oxycodone/Acetaminophen (Percocet 5/325 Tab*) 1 tab PO Q6H PRN PRN Reason: PAIN - MODERATE Last Admin: 06/19/19 10:42 Dose: 1 tab Patiromer (Veltassa Powder*) 8.4 gm PO DAILY [facility] Last Admin: 06/19/19 10:35 Dose: 8.4 gm Pharmacy Consult (Vancomycin Per Pharmacy*) 1 note FOLLOW UP .VANC PER PHARMACY [facility]; Protocol Pharmacy Consult (Vancomycin Random Level*) 1 note FOLLOW UP 0600 ONE Stop: 06/21/19 06:01 Pharmacy Profile Note (Nicotine Patch Removal Note*) 1 note PATCH OFF 2100 [facility] Last Admin: 06/18/19 22:01 Dose: 1 note Vital Signs - 8 hr 06/19/19 06/19/19 06/19/19 09:16 10:42 12:42 Temperature 97.3 F Pulse Rate 82 Respiratory 17 16 16 Rate Blood Pressure 143/73 (mmHg) O2 Sat by Pulse 98 Oximetry Oxygen Devices in Use Now: None Appearance: male sitting up in chair in NAD Eyes: No Scleral Icterus Ears/Nose/Mouth/Throat: Mucous Membranes Moist Respiratory: Symmetrical Chest Expansion and Respiratory Effort, Clear to Auscultation Cardiovascular: NL Sounds; No Murmurs; No JVD, No Edema Abdominal: NL Sounds; No Tenderness; No Distention Extremities: No Edema Skin: - - gangrenous toes to left foot toes 3-5 Neurological: Alert and Oriented x 3, NL Muscle Strength and Tone Result Diagrams: 06/19/19 04:45 06/19/19 04:45 Microbiology and Other Data: Microbiology 06/16/19 12:40 Nasal Screen MRSA (PCR) - Final Nasal Mrsa Not Detected Assess/Plan/Problems-Billing Assessment: Ms. Sepulveda is a 48 yo M with a PMH of type 2 DM, ESRD who was admitted on with gangrenous changes to his left foot. - Patient Problems (1) Gangrene of left foot Comment: - Toes 3-5, infection since at least February 2019, - Hx of diabetes and abnormal ABIs - Appreciate consultation from Dr Phillips, pelvic and bilateral lower extremity arteriography performed 06/18/19, stent placed, does not need dialysis until Friday per nephrology - Continue cefepime and metronidazole and vanco - Cardiac risk stratification outlined in H&P, RCRI is 2, plan for echocardiogram but no further cardiac testing, Patient likely has moderate to more likely severe PULMONARY HYPERTENSION based on echo history. - Plan for OR on Friday with Dr Rondon (2) Sepsis Comment: - Does not meet strict sepsis criteria as only WBC elevated (3) ESRD (end stage renal disease) Comment: - Continue HD per routine, done 06/17 - Continue calcitriol (4) Systolic CHF, chronic Comment: - Asymptomatic - EF 40-45% - Severe tricuspid regurg - Likely mod-severe pulmonary hypertension based on previous echo from 2016, unable to visualize on current echo (5) Diabetes Comment: - HgbA1c 7.3 - Had been off home meds - Continue lispro SSI coverage for meals (6) Anemia Comment: - Most likely secondary to ESRD. Continue ferrous sulfate supplementation. (7) HTN (hypertension) Comment: - SBP 100s - Continue amlodipine, metoprolol, and lisinopril. (8) Hyperbilirubinemia Comment: - Chronic problem, documented history of alcoholic cirrhosis - Liver US with hepatomegaly and small amount of ascites - Will need outpatient follow up with GI (9) DVT prophylaxis Comment: SQ heparin (10) Full code status Comment: Status and Disposition: Inpatient. May need rehab.
[2019-06-19] MEDS: Nicotine Patch Removal NOTE PATCH OFF SCH (21:09)
[2019-06-20] MEDS: Heparin VIAL(*) 5000 UNITS/ML VIAL (FIVE THOUSAND) SUBCUT SCH ×3 (06:33→22:35)
[2019-06-20] MEDS: oxyCODONE/Acetamin 5/325 MG* TAB PO PRN (06:39)
[2019-06-20] MEDS: Insulin LISPRO* 1 UNITS UNIT SUBCUT SCH ×4 (07:53→21:53)
--- NOTE | 2019-06-20 08:43 | PN ---
Progress Note - Progress Note Date of Service: 06/20/19 SOAP: Subjective: Patient seen and examined lying in bed. Patient seems more comfortable than yesterday and more alert. Patient complains of left foot pain. He denies CP, SOB , f/c. We discussed surgery tomorrow with Dr. Rondon for Left 3-5 toe TM amp and patient was agreeable. Objective: [Gen: NAD OOB in chair. Unable to answer all questions, keeping eyes shut most of the time Left foot: Gangrenous toes 3-5, dry dressing applied today. Skin breakdown/ ulcer medial heel, also covered with dry dressing. No drainage. Unable to palpate pulse but obtained through doppler per nursing. Calf soft and NT without palpable cords. Right foot: 5th toe blackened, no drainage, skin breakdown between toes. Dry dressing placed today. Calf soft and NT without palpable cords. Assessment: LLE gangrenous toes 3-5; RLE infection 5th toe Plan: - Plan will be for Left 3-5 toe TM amp on Friday with Dr. Rondon. Patient would benefit from MRI evaluation of OM but patient is unable to keep legs still. - NPO 00:01 06/21/19 for planned surgery Friday - Hold sq Heparin 00:01 06/21/19 for surgery - Cont IV ABX per hosp/ID - Cont pain management as needed - Keep dry dressing on, can be changed by nursing if soiled. Vital Signs Temp Pulse Resp BP Pulse Ox 98.2 F 84 18 135/76 95 06/20/19 07:34 06/20/19 07:34 06/20/19 07:34 06/20/19 07:34 06/20/19 07:34 Laboratory Last Values WBC 17.9 10^3/uL (3.5-10.8) H 06/19/19 04:45 RBC 3.96 10^6 /uL (4.18-5.48) L 06/19/19 04:45 Hgb 11.5 g/dL (14.0-18.0) L 06/19/19 04:45 Hct 34 % (42-52) L 06/19/19 04:45 MCV 87 fL (80-94) 06/19/19 04:45 MCH 29 pg (27-31) 06/19/19 04:45 MCHC 33 g/dL (31-36) 06/19/19 04:45 RDW 16 % (10-15) H 06/19/19 04:45 Plt Count 474 10^3/uL (150-450) H D 06/19/19 04:45 MPV 8.8 fL (7.4-10.4) 06/19/19 04:45 Neut % (Auto) 81.4 % 06/19/19 04:45 Lymph % (Auto) 7.1 % 06/19/19 04:45 Nance % (Auto) 10.1 % 06/19/19 04:45 Eos % (Auto) 0.8 % 06/19/19 04:45 Baso % (Auto) 0.6 % 06/19/19 04:45 Absolute Neuts (auto) 14.6 10^3/ul (1.5-7.7) H 06/19/19 04:45 Absolute Lymphs (auto) 1.3 10^3/ul (1.0-4.8) 06/19/19 04:45 Absolute Monos (auto) 1.8 10^3/ul (0-0.8) H 06/19/19 04:45 Absolute Eos (auto) 0.1 10^3/ul (0-0.6) 06/19/19 04:45 Absolute Basos (auto) 0.1 10^3/ul (0-0.2) 06/19/19 04:45 Absolute Nucleated RBC 0.1 10^3/ul 06/19/19 04:45 Nucleated RBC % 0.4 06/19/19 04:45 POC Activ Clotting Time 251 seconds 06/18/19 17:24 Sodium 137 mmol/L (135-145) 06/19/19 04:45 Potassium 4.6 mmol/L (3.5-5.0) 06/19/19 04:45 Chloride 96 mmol/L (101-111) L 06/19/19 04:45 Carbon Dioxide 27 mmol/L (22-32) 06/19/19 04:45 Anion Gap 14 mmol/L (2-11) H 06/19/19 04:45 BUN 41 mg/dL (6-24) H 06/19/19 04:45 Creatinine 6.52 mg/dL (0.67-1.17) H 06/19/19 04:45 Est GFR ( Amer) 11.1 (>60) 06/19/19 04:45 Est GFR (Non-Af Amer) 9.2 (>60) 06/19/19 04:45 BUN/Creatinine Ratio 6.3 (8-20) L 06/19/19 04:45 Glucose 128 mg/dL (70-100) H 06/19/19 04:45 POC Glucose (mg/dL) 214 mg/dL (70-100) H 06/19/19 20:55 Hemoglobin A1c 7.3 % (4.0-5.6) H 06/16/19 11:29 Calcium 8.1 mg/dL (8.6-10.3) L 06/19/19 04:45 Total Bilirubin 5.10 mg/dL (0.2-1.0) H 06/16/19 11:29 AST 25 U/L (13-39) 06/16/19 11:29 ALT 20 U/L (7-52) 06/16/19 11:29 Alkaline Phosphatase 173 U/L (34-104) H 06/16/19 11:29 C-Reactive Protein 159.66 mg/L (<8.01) H 06/16/19 11:29 Total Protein 9.1 g/dL (6.4-8.9) H 06/16/19 11:29 Albumin 3.5 g/dL (3.2-5.2) 06/16/19 11:29 Globulin 5.6 g/dL (2-4) H 06/16/19 11:29 Albumin/Globulin Ratio 0.6 (1-3) L 06/16/19 11:29
[2019-06-20] MEDS: Clopidogrel TAB* 75 MG PO SCH (08:49)
[2019-06-20] MEDS: amLODIPine TAB* 5 MG PO SCH (08:49)
[2019-06-20] MEDS: Metoprolol Tartrate TAB* 25 MG PO SCH (08:49)
[2019-06-20] MEDS: Aspirin 81 mg CHEW TAB* 81 MG TAB.CHEW PO SCH (08:49)
[2019-06-20] MEDS: metroNIDAZOLE TAB* 250 MG PO SCH ×2 (08:49→22:34)
[2019-06-20] MEDS: Lisinopril TAB* 10 MG PO SCH (08:49)
[2019-06-20] MEDS: Calcitriol CAP* 0.25 MCG PO SCH ×2 (08:53→22:34)
[2019-06-20] MEDS: Nicotine PATCH 21 MG/24 HR* PATCH TRANSDERM SCH (09:44)
[2019-06-20] MEDS: Patiromer POWDER* 8.4 GM PAK PO SCH (12:08)
--- NOTE | 2019-06-20 14:55 | PN ---
Subjective Date of Service: 06/20/19 Interval History: Mr. Sepulveda is feeling fine today. He offers no complaints, but does admit to LE pain when asked. His feet feel "tight" and he is not needing pain medication. Denies CP, SOB, cough. Nursing reported small amount of bright red blood when patient was wiping after a BM. Family History: Unchanged from Admission Social History: Unchanged from Admission Past Medical History: Unchanged from Admission Objective Active Medications: Acetaminophen (Tylenol Tab*) 650 mg PO Q4H PRN PAIN - MODERATE Amlodipine Besylate (Norvasc Tab*) 10 mg PO DAILY [facility] Aspirin (Aspirin 81 Mg Chew Tab*) 81 mg PO DAILY [facility] Calcitriol (Rocaltrol Cap*) 0.75 mcg PO BID [facility] Clopidogrel Bisulfate (Plavix Tab*) 75 mg PO DAILY [facility] Dextrose (D50w Syringe 50 Ml*) 12.5 gm IV PUSH .FOR FS < 60 - SS PRN FS < 60 Heparin Sodium (Porcine) (Heparin Vial(*)) 5,000 units SUBCUT Q8HR [facility] Cefepime HCl 0.5 gm/ Sodium (Chloride) 50 mls @ 100 mls/hr IVPB MoWeFr@1600 [facility] Insulin Human Lispro (Humalog*) 0 units SUBCUT ACHS [facility]; Protocol Lisinopril (Prinivil Tab*) 40 mg PO DAILY [facility] Lorazepam (Ativan Tab(*)) 1 mg PO Q6H PRN ANXIETY Metoprolol Tartrate (Lopressor Tab*) 25 mg PO DAILY [facility] Metronidazole (Flagyl Tab*) 500 mg PO BID [facility] Morphine Sulfate (Morphine Inj (Syringe)*) 4 mg IV Q4H PRN PAIN - SEVERE Nicotine (Nicotine Patch 21 Mg/24 Hr*) 1 patch TRANSDERM DAILY [facility] Ondansetron HCl (Zofran Inj*) 4 mg IV Q4H PRN NAUSEA Oxycodone/Acetaminophen (Percocet 5/325 Tab*) 1 tab PO Q6H PRN PAIN - MODERATE Patiromer (Veltassa Powder*) 8.4 gm PO DAILY [facility] Vital Signs - 8 hr 06/20/19 06/20/19 07:34 11:27 Temperature 98.2 F 98.8 F Pulse Rate 84 75 Respiratory 18 16 Rate Blood Pressure 135/76 113/68 (mmHg) O2 Sat by Pulse 95 97 Oximetry Oxygen Devices in Use Now: None Appearance: Middle-aged male sitting in bed in NAD Ears/Nose/Mouth/Throat: Mucous Membranes Moist Neck: NL Appearance and Movements; NL JVP, Trachea Midline Respiratory: Symmetrical Chest Expansion and Respiratory Effort, Clear to Auscultation Cardiovascular: NL Sounds; No Murmurs; No JVD, RRR Abdominal: NL Sounds; No Tenderness; No Distention Extremities: - - Mild nonpitting BLE Neurological: Alert and Oriented x 3 Lines/Tubes/Other Access: Clean, Dry and Intact Peripheral IV Nutrition: Taking PO's Result Diagrams: 06/19/19 04:45 06/19/19 04:45 Assess/Plan/Problems-Billing Assessment: Ms. Sepulveda is a 48 yo M with a PMH of type 2 DM, ESRD who was admitted on with gangrenous changes to his left foot. - Patient Problems (1) Gangrene of left foot Code(s): I96 - GANGRENE, NOT ELSEWHERE CLASSIFIED Comment: - Toes 3-5, infection since at least February 2019 - Hx of diabetes and abnormal ABIs - Appreciate consultation from Dr Phillips; pelvic and bilateral lower extremity arteriography performed 06/18/19 with stent placed - Cardiac risk stratification outlined in H&P, RCRI is 2; had echocardiogram but no further cardiac testing needed; patient likely has moderate to more likely severe PULMONARY HYPERTENSION based on echo history - Plan for OR on Friday with Dr. Rondon - Will also need HD Friday, unknown what will happen first - Continue cefepime, metronidazole, vanco (2) ESRD (end stage renal disease) Code(s): N18.6 - END STAGE RENAL DISEASE Comment: - Continue HD MWF, last done 06/17 - Continue calcitriol (3) Systolic CHF, chronic Code(s): I50.22 - CHRONIC SYSTOLIC (CONGESTIVE) HEART FAILURE Comment: - Asypmtomatic - EF 40-45% - Severe tricuspid regurg - Likely mod-severe pulmonary hypertension based on previous echo from 2016, unable to visualize on current echo - Continue metoprolol, lisinopril (4) Diabetes Code(s): E11.9 - TYPE 2 DIABETES MELLITUS WITHOUT COMPLICATIONS Comment: - A1c 7.3 - Had been off home meds - Continue Lispro SS (5) Anemia Code(s): D64.9 - ANEMIA, UNSPECIFIED Comment: - AOCD secondary to ESRD - Continue ferrous sulfate (6) HTN (hypertension) Code(s): I10 - ESSENTIAL (PRIMARY) HYPERTENSION Comment: - Normotensive - Continue amlodipine, metoprolol, lisinopril (7) Hyperbilirubinemia Code(s): E80.6 - OTHER DISORDERS OF BILIRUBIN METABOLISM Comment: - Chronic, documented history of alcoholic cirrhosis - Liver US with hepatomegaly and small amount of ascites - Will need outpatient follow up with GI (8) DVT prophylaxis Comment: - Heparin SQ (9) Full code status Code(s): Z78.9 - OTHER SPECIFIED HEALTH STATUS Comment: Status and Disposition: Inpatient. Surgery Friday. May need MANJEET pending hospital course. Attending: Sabine Dasilva
[2019-06-20] MEDS: Acetaminophen TAB* 325 MG PO PRN (19:33)
[2019-06-20 19:55] LABS: ABS Basophils 0.2 10^3/ul (0-0.2); ABS Eosinophils 0.1 10^3/ul (0-0.6); ABS Monocytes 1.5 10^3/ul (0-0.8); ABS Neutrophils 16.5 10^3/ul (1.5-7.7); Eosinophil % 0.6 %; Hematocrit 35 % (42-52); Hemoglobin 11.7 g/dL (14.0-18.0); Lymphocyte % 5.2 %; Mean Corpuscular HGB Conc 33 g/dL (31-36); Mean Corpuscular Hemoglobin 28 pg (27-31); Mean Corpuscular Volume 86 fL (80-94); Mean Platelet Volume 8.6 fL (7.4-10.4); Platelet Count 528 10^3/uL (150-450); Red Blood Count 4.13 10^6 /uL (4.18-5.48); Red Cell Distribution Width 16 % (10-15); White Blood Count 19.3 10^3/uL (3.5-10.8)
[2019-06-20 20:12] LABS: BUN/Creatinine Ratio 6.7 (8-20); Calcium 8.6 mg/dL (8.6-10.3); EGFR African American 6.8 (>60); EGFR Non-African American 5.7 (>60)
[2019-06-20 20:14] LABS: Potassium 5.3 mmol/L (3.5-5.0)
[2019-06-20] MEDS ORDERED: Sodium Polystyrene ORAL.SUSP* 15 GM/60 ML BTL PO ONE (21:36)
[2019-06-20] MEDS: Ondansetron INJ* 2 MG/ML VIAL IV PRN (21:44)
[2019-06-20] MEDS: Nicotine Patch Removal NOTE PATCH OFF SCH (22:34)
[2019-06-21 04:40] LABS: Hematocrit 31 % (42-52); Hemoglobin 10.3 g/dL (14.0-18.0); Mean Corpuscular HGB Conc 34 g/dL (31-36); Mean Corpuscular Hemoglobin 29 pg (27-31); Mean Corpuscular Volume 85 fL (80-94); Mean Platelet Volume 9.1 fL (7.4-10.4); Platelet Count 471 10^3/uL (150-450); Red Blood Count 3.59 10^6 /uL (4.18-5.48); Red Cell Distribution Width 15 % (10-15); White Blood Count 16.3 10^3/uL (3.5-10.8)
[2019-06-21 04:44] LABS: ABS Basophils 0.1 10^3/ul (0-0.2); ABS Eosinophils 0.2 10^3/ul (0-0.6); ABS Lymphocytes 1.5 10^3/ul (1.0-4.8); ABS Monocytes 1.6 10^3/ul (0-0.8); ABS Neutrophils 12.9 10^3/ul (1.5-7.7); Eosinophil % 1.3 %; Lymphocyte % 9.5 %
[2019-06-21 04:46] LABS: INR 1.4 (0.82-1.09)
[2019-06-21 04:51] LABS: Vancomycin Random 20.2 mcg/mL
[2019-06-21 05:02] LABS: BUN/Creatinine Ratio 6.6 (8-20); Calcium 8.3 mg/dL (8.6-10.3); EGFR African American 6.1 (>60); EGFR Non-African American 5.1 (>60)
[2019-06-21 05:03] LABS: Potassium 5.3 mmol/L (3.5-5.0)
[2019-06-21] MEDS ORDERED: Vancomycin Random Level* NOTE FOLLOW UP ONE (06:00)
[2019-06-21] MEDS: Insulin LISPRO* 1 UNITS UNIT SUBCUT SCH ×4 (08:10→21:12)
[2019-06-21] MEDS ORDERED: Vancomycin - DIALYSIS DOSING* NOTE FOLLOW UP SCH (09:00)
[2019-06-21] MEDS ORDERED: LORazepam INJ* 2 MG/ML 1 ML VIAL IV PUSH ONE (09:18)
[2019-06-21] MEDS ORDERED: Lorazepam PYXIS KEY PRN (09:27)
--- NOTE | 2019-06-21 10:12 | PN ---
Progress Note - Progress Note Date of Service: 06/21/19 SOAP: Subjective: []Patient seen and examined at bedside. He feels well without complaint of fever or chills. Needs dialysis at noon, this timing cannot be altered today. OR schedules him for TMA L foot at the same time. Objective: []Gen: NAD OOB in chair Left foot: foul smelling Gangrenous toes 3-5, purulence at bases with mild erythema of forefoot. + tenderness of forefoot. dry dressing applied today. Skin breakdown/ulcer medial heel, also covered with dry dressing. No drainage. Calf soft and NT without palpable cords. Right foot: 5th toe blackened, no drainage, +skin breakdown between toes. Dry dressing placed today. Calf soft and NT without palpable cords. Assessment: LLE gangrenous toes 3-5; RLE infection 5th toe Plan: - Plan will be for Left 3-5 toe TM amp on Friday with Dr. Rondon. Patient would benefit from MRI evaluation of OM but patient is unable to keep legs still. Will attempt MRI again today, surgery delayed due to hyperkalemia, need for dialysis before procedure. - Plan for OR tomorrow, will discuss with surgeons for OR booking - Cont IV ABX per hosp/ID - Cont pain management as needed - Keep dry dressing on, can be changed by nursing if soiled. Vital Signs Temp 98.0 F 06/21/19 07:46 Pulse 82 06/21/19 07:46 Resp 16 06/21/19 07:46 BP 126/72 06/21/19 07:46 Pulse Ox 94 06/21/19 07:46 Intake & Output 06/20/19 06/21/19 06/21/19 18:59 06:59 18:59 Intake Total 600 1000 Output Total 0 0 Balance 600 1000 Intake: Oral 600 1000 Output: Urine 0 0 Laboratory Last Values WBC 16.3 10^3/uL (3.5-10.8) H 06/21/19 04:08 RBC 3.59 10^6 /uL (4.18-5.48) L 06/21/19 04:08 Hgb 10.3 g/dL (14.0-18.0) L 06/21/19 04:08 Hct 31 % (42-52) L 06/21/19 04:08 MCV 85 fL (80-94) 06/21/19 04:08 MCH 29 pg (27-31) 06/21/19 04:08 MCHC 34 g/dL (31-36) 06/21/19 04:08 RDW 15 % (10-15) 06/21/19 04:08 Plt Count 471 10^3/uL (150-450) H D 06/21/19 04:08 MPV 9.1 fL (7.4-10.4) 06/21/19 04:08 Neut % (Auto) 78.8 % 06/21/19 04:08 Lymph % (Auto) 9.5 % 06/21/19 04:08 [place] % (Auto) 9.8 % 06/21/19 04:08 Eos % (Auto) 1.3 % 06/21/19 04:08 Baso % (Auto) 0.6 % 06/21/19 04:08 Absolute Neuts (auto) 12.9 10^3/ul (1.5-7.7) H 06/21/19 04:08 Absolute Lymphs (auto) 1.5 10^3/ul (1.0-4.8) 06/21/19 04:08 Absolute Monos (auto) 1.6 10^3/ul (0-0.8) H 06/21/19 04:08 Absolute Eos (auto) 0.2 10^3/ul (0-0.6) 06/21/19 04:08 Absolute Basos (auto) 0.1 10^3/ul (0-0.2) 06/21/19 04:08 Absolute Nucleated RBC 0.0 10^3/ul 06/21/19 04:08 Nucleated RBC % 0.0 06/21/19 04:08 INR (Anticoag Therapy) 1.40 (0.82-1.09) H 06/21/19 04:08 POC Activ Clotting Time 251 seconds 06/18/19 17:24 Sodium 135 mmol/L (135-145) 06/21/19 04:08 Potassium 5.3 mmol/L (3.5-5.0) H 06/21/19 04:08 Chloride 93 mmol/L (101-111) L 06/21/19 04:08 Carbon Dioxide 23 mmol/L (22-32) 06/21/19 04:08 Anion Gap 19 mmol/L (2-11) H 06/21/19 04:08 BUN 72 mg/dL (6-24) H 06/21/19 04:08 Creatinine 10.87 mg/dL (0.67-1.17) H 06/21/19 04:08 Est GFR ( Amer) 6.1 (>60) 06/21/19 04:08 Est GFR (Non-Af Amer) 5.1 (>60) 06/21/19 04:08 BUN/Creatinine Ratio 6.6 (8-20) L 06/21/19 04:08 Glucose 105 mg/dL (70-100) H 06/21/19 04:08 POC Glucose (mg/dL) 174 mg/dL (70-100) H 06/20/19 21:48 Hemoglobin A1c 7.3 % (4.0-5.6) H 06/16/19 11:29 Lactic Acid 0.7 mmol/L (0.5-2.0) 06/20/19 19:45 Calcium 8.3 mg/dL (8.6-10.3) L 06/21/19 04:08 Total Bilirubin 5.10 mg/dL (0.2-1.0) H 06/16/19 11:29 AST 25 U/L (13-39) 06/16/19 11:29 ALT 20 U/L (7-52) 06/16/19 11:29 Alkaline Phosphatase 173 U/L (34-104) H 06/16/19 11:29 C-Reactive Protein 159.66 mg/L (<8.01) H 06/16/19 11:29 Total Protein 9.1 g/dL (6.4-8.9) H 06/16/19 11:29 Albumin 3.5 g/dL (3.2-5.2) 06/16/19 11:29 Globulin 5.6 g/dL (2-4) H 06/16/19 11:29 Albumin/Globulin Ratio 0.6 (1-3) L 06/16/19 11:29 Random Vancomycin 20.2 mcg/mL 06/21/19 04:08
[2019-06-21] MEDS: Lisinopril TAB* 10 MG PO SCH (10:16)
[2019-06-21] MEDS: Clopidogrel TAB* 75 MG PO SCH (10:16)
[2019-06-21] MEDS: metroNIDAZOLE TAB* 250 MG PO SCH ×2 (10:16→20:51)
[2019-06-21] MEDS: Metoprolol Tartrate TAB* 25 MG PO SCH (10:17)
[2019-06-21] MEDS: Calcitriol CAP* 0.25 MCG PO SCH ×2 (10:17→20:50)
[2019-06-21] MEDS: Aspirin 81 mg CHEW TAB* 81 MG TAB.CHEW PO SCH (10:17)
[2019-06-21] MEDS: Nicotine PATCH 21 MG/24 HR* PATCH TRANSDERM SCH (10:18)
[2019-06-21] MEDS: amLODIPine TAB* 5 MG PO SCH (10:18)
[2019-06-21] MEDS: Patiromer POWDER* 8.4 GM PAK PO SCH (10:19)
--- NOTE | 2019-06-21 11:35 | PN ---
Progress Note - Progress Note Date of Service: 06/21/19 SOAP: Subjective: CC: Bilateral LE necrotic wounds HPI: Mr. Sepulveda is a 48 yo male with PMH significant for ESRD on hemodialysis , DM2, and HTN; who presented to the hospital for bilateral foot wounds. Denies fever, chills, nausea, vomiting, or diarrhea. Reports discomfort in bilateral feet. Objective: Vital Signs - 8 hr 06/21/19 06/21/19 06/21/19 04:28 07:46 08:00 Temperature 98.2 F 98.0 F Pulse Rate 82 82 Respiratory 17 16 18 Rate Blood Pressure 139/85 126/72 (mmHg) O2 Sat by Pulse 98 94 Oximetry Physical Exam: General: NAD, sitting up on the side of the bed Neurological: Alert and Oriented HEENT: Moist MM Cardiovascular: Heart rate regular Respirator: Lung sounds clear Abdominal: Bowel sounds present; ABD soft, non tender and non distended MSK: POTTER. Tenderness with palpation of the left forefoot. Skin: Left foot with black necrotic toes (3-5), purulence at the bases, foul odor and mild erythema to the forefoot. There is an ulcer to the medial aspect of the left heel, pink wound base, no erythema. Right 5th toe is black and necrotic. There are wounds between the 2nd and 3rd toes on the right foot Laboratory Results - last 24 hr 06/20/19 06/20/19 06/20/19 19:45 19:45 19:45 WBC 19.3 H RBC 4.13 L Hgb 11.7 L Hct 35 L MCV 86 MCH 28 MCHC 33 RDW 16 H Plt Count 528 H D MPV 8.6 Neut % (Auto) 85.4 Lymph % (Auto) 5.2 [place] % (Auto) 7.9 Eos % (Auto) 0.6 Baso % (Auto) 0.9 Absolute Neuts (auto) 16.5 H Absolute Lymphs (auto) 1.0 Absolute Monos (auto) 1.5 H Absolute Eos (auto) 0.1 Absolute Basos (auto) 0.2 Absolute Nucleated RBC 0.0 Nucleated RBC % 0.0 Sodium 132 L Potassium 5.3 H Chloride 90 L Carbon Dioxide 25 Anion Gap 17 H BUN 66 H Creatinine 9.90 H Est GFR ( Amer) 6.8 Est GFR (Non-Af Amer) 5.7 BUN/Creatinine Ratio 6.7 L Glucose 133 H Lactic Acid 0.7 Calcium 8.6 06/20/19 06/21/19 06/21/19 21:48 04:08 04:08 WBC 16.3 H RBC 3.59 L Hgb 10.3 L Hct 31 L MCV 85 MCH 29 MCHC 34 RDW 15 Plt Count 471 H D MPV 9.1 Neut % (Auto) 78.8 Lymph % (Auto) 9.5 [place] % (Auto) 9.8 Eos % (Auto) 1.3 Baso % (Auto) 0.6 Absolute Neuts (auto) 12.9 H Absolute Lymphs (auto) 1.5 Absolute Monos (auto) 1.6 H Absolute Eos (auto) 0.2 Absolute Basos (auto) 0.1 Absolute Nucleated RBC 0.0 Nucleated RBC % 0.0 INR (Anticoag Therapy) Sodium 135 Potassium 5.3 H Chloride 93 L Carbon Dioxide 23 Anion Gap 19 H BUN 72 H Creatinine 10.87 H Est GFR ( Amer) 6.1 Est GFR (Non-Af Amer) 5.1 BUN/Creatinine Ratio 6.6 L Glucose 105 H POC Glucose (mg/dL) 174 H Calcium 8.3 L Random Vancomycin 20.2 Microbiology 06/16/19 12:40 Nasal Screen MRSA (PCR) - Final Nasal Mrsa Not Detected Assessment: 1. Bilateral foot gangrene. Left foot - 3rd to 5th toes and right foot - 5th toe all with dry necrotic tissue. Plain film xrays with no signs of osteomyelitis. Unable to tolerate MRI. In setting of chronic wounds, suspect this represents chronic osteomyelitis. No wound cultures have been taken. Afebrile and improving leukocytosis. Ortho is planning surgery tomorrow. 2. DM2. 3. ESRD, on hemodialysis. Plan: Continue Vanco, cefepime, and flagyl until we have cultures from the OR. We will continue to follow along.
--- NOTE | 2019-06-21 11:37 | PN ---
Subjective Date of Service: 06/21/19 Interval History: Mr. Sepulveda is feeling fine today. He has no complaints. Does admit to BLE pain, possibly worse than previously, but difficult to decipher. He does admit to picking scabs frequently. Denies CP, SOB, cough. No concerns from nursing. Family History: Unchanged from Admission Social History: Unchanged from Admission Past Medical History: Unchanged from Admission Objective Active Medications: Acetaminophen (Tylenol Tab*) 650 mg PO Q4H PRN PAIN - MODERATE Amlodipine Besylate (Norvasc Tab*) 10 mg PO DAILY [facility] Aspirin (Aspirin 81 Mg Chew Tab*) 81 mg PO DAILY [facility] Calcitriol (Rocaltrol Cap*) 0.75 mcg PO BID [facility] Clopidogrel Bisulfate (Plavix Tab*) 75 mg PO DAILY [facility] Dextrose (D50w Syringe 50 Ml*) 12.5 gm IV PUSH .FOR FS < 60 - SS PRN FS < 60 Cefepime HCl 0.5 gm/ Sodium (Chloride) 50 mls @ 100 mls/hr IVPB [id number] [facility] Vancomycin HCl 1,000 mg/ (Sodium Chloride) 250 mls @ 166.667 mls/hr IV ONCE ONE Insulin Human Lispro (Humalog*) 0 units SUBCUT ACHS [facility]; Protocol Lisinopril (Prinivil Tab*) 40 mg PO DAILY [facility] Metoprolol Tartrate (Lopressor Tab*) 25 mg PO DAILY [facility] Metronidazole (Flagyl Tab*) 500 mg PO BID [facility] Morphine Sulfate (Morphine Inj (Syringe)*) 4 mg IV Q4H PRN PAIN - SEVERE Nicotine (Nicotine Patch 21 Mg/24 Hr*) 1 patch TRANSDERM DAILY [facility] Ondansetron HCl (Zofran Inj*) 4 mg IV Q4H PRN NAUSEA Oxycodone/Acetaminophen (Percocet 5/325 Tab*) 1 tab PO Q6H PRN PAIN - MODERATE Patiromer (Veltassa Powder*) 8.4 gm PO DAILY [facility] Vital Signs - 8 hr 06/21/19 06/21/19 06/21/19 04:28 07:46 08:00 Temperature 98.2 F 98.0 F Pulse Rate 82 82 Respiratory 17 16 18 Rate Blood Pressure 139/85 126/72 (mmHg) O2 Sat by Pulse 98 94 Oximetry Oxygen Devices in Use Now: None Appearance: Middle-aged male sitting in bed in NAD Ears/Nose/Mouth/Throat: Mucous Membranes Moist Neck: NL Appearance and Movements; NL JVP, Trachea Midline Respiratory: Symmetrical Chest Expansion and Respiratory Effort, Clear to Auscultation Cardiovascular: NL Sounds; No Murmurs; No JVD, RRR Extremities: - - Mild nonpitting BLE Skin: - - Left 3-5 toes necrotic with foul odor; Right 3-5 toes with some necrosis at the bases, skin breakdown between toes Neurological: Alert and Oriented x 3 Lines/Tubes/Other Access: Clean, Dry and Intact Peripheral IV Nutrition: Taking PO's Result Diagrams: 06/22/19 05:08 06/22/19 05:08 Assess/Plan/Problems-Billing Assessment: Ms. Sepulveda is a 48 yo M with a PMH of type 2 DM, ESRD who was admitted on with gangrenous changes to his left foot. - Patient Problems (1) Gangrene of left foot Code(s): I96 - GANGRENE, NOT ELSEWHERE CLASSIFIED Comment: - Toes 3-5, infection since at least February 2019 - Hx of diabetes and abnormal ABIs - Appreciate consultation from Dr Phillips; pelvic and bilateral lower extremity arteriography performed 06/18/19 with stent placed - Cardiac risk stratification outlined in H&P, RCRI is 2; had echocardiogram but no further cardiac testing needed; patient likely has moderate to more likely severe PULMONARY HYPERTENSION based on echo history - MRI attempted again today with lorazepam but patient still not able to tolerate - Surgery will be postponed until tomorrow based on labs and need for dialysis prior to surgery - Continue cefepime, metronidazole, vanco (2) ESRD (end stage renal disease) Code(s): N18.6 - END STAGE RENAL DISEASE Comment: - Continue HD MWF - Continue calcitriol (3) Systolic CHF, chronic Code(s): I50.22 - CHRONIC SYSTOLIC (CONGESTIVE) HEART FAILURE Comment: - Asypmtomatic - EF 40-45% - Severe tricuspid regurg - Likely mod-severe pulmonary hypertension based on previous echo from 2016, unable to visualize on current echo - Continue metoprolol, lisinopril (4) Diabetes Code(s): E11.9 - TYPE 2 DIABETES MELLITUS WITHOUT COMPLICATIONS Comment: - A1c 7.3 - Had been off home meds - Continue Lispro SS (5) Anemia Code(s): D64.9 - ANEMIA, UNSPECIFIED Comment: - AOCD secondary to ESRD - Continue ferrous sulfate (6) HTN (hypertension) Code(s): I10 - ESSENTIAL (PRIMARY) HYPERTENSION Comment: - Normotensive - Continue amlodipine, metoprolol, lisinopril (7) Hyperbilirubinemia Code(s): E80.6 - OTHER DISORDERS OF BILIRUBIN METABOLISM Comment: - Chronic, documented history of alcoholic cirrhosis - Liver US with hepatomegaly and small amount of ascites - Will need outpatient follow up with GI (8) DVT prophylaxis Comment: - Heparin SQ (9) Full code status Code(s): Z78.9 - OTHER SPECIFIED HEALTH STATUS Comment: Status and Disposition: Inpatient. Surgery tomorrow. May need MANJEET pending hospital course. Attending: Sabine Dasilva
[2019-06-21] MEDS ORDERED: Buffered Lidocaine 1% SYRIN* 1 ML/SYRINGE INTRADERM ONE (11:42)
[2019-06-21] MEDS ORDERED: Vancomycin(*) 1,000 MG in NS 0.9% 250 ML* 250 ML IV ONE (14:00)
[2019-06-21] MEDS ORDERED: Heparin DIALYSIS ONLY(*) 1,000 UNITS/ML VIAL DIALYSIS ONE (14:00)
--- NOTE | 2019-06-21 14:33 | PN ---
Progress Note - Progress Note Date of Service: 06/21/19 Note: Inpatient Acute Dialysis Note for ESRD Performed by Dr. Felix Garcia, [facility] Nephrology 06/21/2019 48 YO [place] with ESRD 2/2 DM Was admitted 06/16/19 with gangrenous left toes, s/p B/L LE Angiogram~06/18/19 s/ p stent placed s/p Stenting of proximal Lt SFA and balloon angioplasty of Lt Anterior Tibial Artery. Surgical amputation scheduled for tomorrow for gangrenous toes. Meanwhile on cefepime, metronidazole & Vancomycin Of note has HFrEF with LVEF 40-45% & severe tricuspid regurgitation I saw him today on HD for ESRD. HD routine MWF. He was seen and examined on HD. Today he feels Ok & has no new complaints. HD Routine: MWF HD Duration: 3.0 Hr UF Goal: 3 L/Rx Vitals: Temp Pulse Resp BP Pulse Ox 98.0 F 82 18 126/72 94 06/21/19 07:46 06/21/19 07:46 06/21/19 12:05 06/21/19 07:46 06/21/19 07:46 BP: 160/90 HR: 76/m Blood Flow: 500 cc/min Dialysate Flow: 600 cc/min Bath: K: 2K Ca: 2.5Ca Na: 138 Hco3: 35 Temp: 36 C Dialyzer: Revaclear Max Access: Rt UA AVF No Access Related Issues Meds with HD: Heparin Loading & Maintenance: 2000 & 1000 IU/Hr except last Hr Tolerates HD well. No Intradialytic Hypotension. Hospital Medications Acetaminophen Amlodipine Aspirin Calcitriol Clopidogrel Cefepime 0.5 g, MWF Vancomycin 1 gm 06/20 Insulin Human Lispro Lisinopril Metoprolol Metronidazole Morphine Sulfate Nicotine Ondansetron Oxycodone/Acetaminophen Labs: Sodium 135 mmol/L (135-145) 06/21/19 04:08 Potassium 5.3 mmol/L (3.5-5.0) H 06/21/19 04:08 BUN 72 mg/dL (6-24) H 06/21/19 04:08 Creatinine 10.87 mg/dL (0.67-1.17) H 06/21/19 04:08 Hemoglobin A1c 7.3 % (4.0-5.6) H 06/16/19 11:29 Calcium 8.3 mg/dL (8.6-10.3) L 06/21/19 04:08 AST 25 U/L (13-39) 06/16/19 11:29 ALT 20 U/L (7-52) 06/16/19 11:29
[2019-06-21] MEDS: Cefepime(*) 0.5 GM in NS 0.9% 50 ML* 50 ML IVPB SCH (17:22)
[2019-06-21] MEDS: Acetaminophen TAB* 325 MG PO PRN (20:51)
[2019-06-21] MEDS: Nicotine Patch Removal NOTE PATCH OFF SCH (21:00)
[2019-06-21] MEDS: Morphine INJ* 4 MG/ML 1 ML SYRINGE (NEW SYRINGE VERSION) IV PRN (21:13)
[2019-06-21] MEDS ORDERED: Acetaminophen TAB* 325 MG PO ONE (21:41)
--- NOTE | 2019-06-21 23:28 | PN ---
Hospitalist Progress Note Date of Service: 06/21/19 called to bedside for fever 103 and hr > 90. Patient scores 3 on sepis scale. However BP stable mentating well. Blood cx showing bacteremia, on three abx,. At this point will treat fever with tylenol. He is a and o times three no resp status stable, plan for OR in which willl hopefully allow for better source control.
[2019-06-22 05:21] LABS: Hematocrit 29 % (42-52); Hemoglobin 9.9 g/dL (14.0-18.0); Mean Corpuscular HGB Conc 34 g/dL (31-36); Mean Corpuscular Hemoglobin 29 pg (27-31); Mean Corpuscular Volume 85 fL (80-94); Mean Platelet Volume 8.8 fL (7.4-10.4); Platelet Count 428 10^3/uL (150-450); Red Blood Count 3.46 10^6 /uL (4.18-5.48); Red Cell Distribution Width 16 % (10-15); White Blood Count 17.7 10^3/uL (3.5-10.8)
[2019-06-22 05:26] LABS: INR 1.42 (0.82-1.09)
[2019-06-22 05:35] LABS: BUN/Creatinine Ratio 6.4 (8-20); Calcium 8.8 mg/dL (8.6-10.3); EGFR African American 8.4 (>60); Potassium 4.4 mmol/L (3.5-5.0)
[2019-06-22] MEDS ORDERED: Buffered Lidocaine 1% SYRIN* 1 ML/SYRINGE INTRADERM ONE (06:00)
[2019-06-22] MEDS ORDERED: NS 0.9% 1000 ML** 1,000 ML IV SCH (06:00)
[2019-06-22] MEDS ORDERED: Aspirin 81 mg CHEW TAB* 81 MG TAB.CHEW PO ONE (06:25)
[2019-06-22] MEDS ORDERED: Clopidogrel TAB* 75 MG PO ONE (06:25)
[2019-06-22] MEDS ORDERED: metroNIDAZOLE TAB* 250 MG PO ONE (06:25)
[2019-06-22] MEDS ORDERED: Metoprolol Tartrate TAB* 25 MG PO ONE (06:25)
[2019-06-22] MEDS ORDERED: amLODIPine TAB* 5 MG PO ONE (06:25)
[2019-06-22] MEDS ORDERED: Bupivacaine 0.5%* 50 ML MDV VIAL ONE (06:59)
[2019-06-22] MEDS ORDERED: fentaNYL* 50 MCG/ML 2 ML VIAL (100 MCG VIAL) ONE (07:09)
[2019-06-22] MEDS ORDERED: Midazolam* 1 MG/ML 2 ML VIAL (2 MG) ONE (07:09)
[2019-06-22] MEDS ORDERED: HYDROmorphone INJ1* 1 MG/ML SYRINGE IV PRN (07:22)
[2019-06-22] MEDS ORDERED: Naloxone* 0.4 MG/ML 1 ML VIAL IV PRN (07:22)
[2019-06-22] MEDS ORDERED: Bupivacaine 0.5% SDV PF* 30ML VIAL ONE (07:24)
[2019-06-22 07:27] LABS: ABS Basophils 0.2 10^3/ul (0-0.2); ABS Eosinophils 0.2 10^3/ul (0-0.6); ABS Lymphocytes 1.7 10^3/ul (1.0-4.8); ABS Monocytes 1.6 10^3/ul (0-0.8); Lymphocyte % 9.4 %
[2019-06-22] MEDS ORDERED: Lidocaine 2% PF * 5 ML VIAL ONE ×2 (07:40→07:51)
[2019-06-22] MEDS ORDERED: Ondansetron INJ* 2 MG/ML VIAL ONE (07:50)
[2019-06-22] MEDS ORDERED: Propofol* 500 MG/50 ML BTL ONE (07:52)
[2019-06-22] MEDS: Aspirin 81 mg CHEW TAB* 81 MG TAB.CHEW PO SCH (09:14)
[2019-06-22] MEDS: amLODIPine TAB* 5 MG PO SCH (09:14)
[2019-06-22] MEDS: Clopidogrel TAB* 75 MG PO SCH (09:15)
[2019-06-22] MEDS: Metoprolol Tartrate TAB* 25 MG PO SCH (09:15)
[2019-06-22] MEDS: metroNIDAZOLE TAB* 250 MG PO SCH ×2 (09:15→22:11)
[2019-06-22] MEDS: Insulin LISPRO* 1 UNITS UNIT SUBCUT SCH ×4 (09:28→22:08)
[2019-06-22] MEDS: Patiromer POWDER* 8.4 GM PAK PO SCH (12:02)
[2019-06-22] MEDS: Calcitriol CAP* 0.25 MCG PO SCH ×2 (12:02→22:11)
--- NOTE | 2019-06-22 15:11 | OP ---
DATE OF OPERATION: 06/22/19 - ROOM #[id number] DATE OF : 70 SURGEON: Jacek Rondon MD. FILES SUPERVISOR: Immanuel Patrick PA-C. PRE-OP DIAGNOSIS: Necrotic stage 4 ulceration, left forefoot. POST-OP DIAGNOSIS: Necrotic stage 4 ulceration, left forefoot. OPERATIVE PROCEDURE: Left transmetatarsal amputation. DESCRIPTION OF PROCEDURE: The patient was taken to the operating room where he had a popliteal block with a thigh tourniquet applied. We opened up transverse fish mouth incision through the distal portion of the left forefoot. The soft tissue was divided down to the metatarsal bridge, which was divided then with the microsagittal saw in the proximal portion of the metatarsal themselves. We then flexed through the osteotomy to divide the posterior flap and the forefoot sent to Pathology. Local hemostasis was obtained. The tourniquet really was not functional for more than a minute or two during the case, but there was no severe bleeding. We irrigated the wound thoroughly, and there was no gross purulence at the level of the amputation. Cultures were sent as well. We closed the flaps with Monocryl sutures dorsal and plantar and then 2-0 Prolene interrupted sutures for the skin and a compression dressing applied. [id number]/[facility] #: [id number] MTDDixie
[2019-06-22] MEDS: Nicotine PATCH 21 MG/24 HR* PATCH TRANSDERM SCH (15:12)
--- NOTE | 2019-06-22 15:49 | PN ---
Subjective Date of Service: 06/22/19 Interval History: Mr. Sepulveda is sleeping my exam. He recently returned back to the floor from the PACU and is still sedated. Will wake to physical stimuli, but will not participate in conversation. No concerns from nursing. Family History: Unchanged from Admission Social History: Unchanged from Admission Past Medical History: Unchanged from Admission Objective Active Medications: Acetaminophen (Tylenol Tab*) 650 mg PO Q4H PRN PAIN - MODERATE Amlodipine Besylate (Norvasc Tab*) 10 mg PO DAILY [facility] Aspirin (Aspirin 81 Mg Chew Tab*) 81 mg PO DAILY [facility] Calcitriol (Rocaltrol Cap*) 0.75 mcg PO BID [facility] Clopidogrel Bisulfate (Plavix Tab*) 75 mg PO DAILY [facility] Dextrose (D50w Syringe 50 Ml*) 12.5 gm IV PUSH .FOR FS < 60 - SS PRN FS < 60 Cefepime HCl 0.5 gm/ Sodium (Chloride) 50 mls @ 100 mls/hr IVPB [id number] [facility] Insulin Human Lispro (Humalog*) 0 units SUBCUT ACHS [facility]; Protocol Metoprolol Tartrate (Lopressor Tab*) 25 mg PO DAILY [facility] Metronidazole (Flagyl Tab*) 500 mg PO BID [facility] Morphine Sulfate (Morphine Inj (Syringe)*) 4 mg IV Q4H PRN PAIN - SEVERE Nicotine (Nicotine Patch 21 Mg/24 Hr*) 1 patch TRANSDERM DAILY [facility] Ondansetron HCl (Zofran Inj*) 4 mg IV Q4H PRN NAUSEA Oxycodone/Acetaminophen (Percocet 5/325 Tab*) 1 tab PO Q6H PRN PAIN - MODERATE Patiromer (Veltassa Powder*) 8.4 gm PO DAILY [facility] Vital Signs - 8 hr 06/22/19 06/22/19 06/22/19 08:44 08:45 08:46 Temperature 97.0 F Pulse Rate 76 75 75 Respiratory 18 Rate Blood Pressure 88/59 93/61 (mmHg) O2 Sat by Pulse 100 99 100 Oximetry 06/22/19 06/22/19 06/22/19 08:50 08:55 09:00 Temperature Pulse Rate 74 74 74 Respiratory Rate Blood Pressure 95/62 106/62 92/61 (mmHg) O2 Sat by Pulse 100 100 100 Oximetry 06/22/19 06/22/19 06/22/19 09:05 09:10 09:15 Temperature Pulse Rate 73 72 Respiratory Rate Blood Pressure 108/65 114/64 109/60 (mmHg) O2 Sat by Pulse 100 95 Oximetry 06/22/19 06/22/19 06/22/19 09:30 09:40 10:00 Temperature 98.5 F Pulse Rate 72 Respiratory 18 16 Rate Blood Pressure 119/67 115/65 (mmHg) O2 Sat by Pulse 93 Oximetry 06/22/19 06/22/19 06/22/19 10:16 11:05 12:20 Temperature 97.8 F 97.4 F Pulse Rate 64 59 Respiratory 18 16 18 Rate Blood Pressure 102/65 94/52 (mmHg) O2 Sat by Pulse 94 97 Oximetry 06/22/19 06/22/19 12:24 14:02 Temperature 97.5 F Pulse Rate 54 Respiratory 16 Rate Blood Pressure 106/58 100/60 (mmHg) O2 Sat by Pulse 96 Oximetry Oxygen Devices in Use Now: None Appearance: Middle-aged male lying in bed in NAD Ears/Nose/Mouth/Throat: Mucous Membranes Moist Neck: NL Appearance and Movements; NL JVP, Trachea Midline Respiratory: Symmetrical Chest Expansion and Respiratory Effort, Clear to Auscultation Cardiovascular: NL Sounds; No Murmurs; No JVD, RRR Abdominal: NL Sounds; No Tenderness; No Distention Extremities: No Edema Neurological: - - Wakes to physical stimuli Lines/Tubes/Other Access: Clean, Dry and Intact Peripheral IV Nutrition: Taking PO's Result Diagrams: 06/22/19 05:08 06/22/19 05:08 Assess/Plan/Problems-Billing Assessment: Ms. Sepulveda is a 48 yo M with a PMH of type 2 DM, ESRD who was admitted on with gangrenous changes to his left foot. - Patient Problems (1) Gangrene of left foot Code(s): I96 - GANGRENE, NOT ELSEWHERE CLASSIFIED Comment: - Toes 3-5, infection since at least February 2019 - Hx of diabetes and abnormal ABIs - Appreciate consultation from Dr Phillips; pelvic and bilateral lower extremity arteriography performed 06/18/19 with stent placed - MRI attempted again 06/20 with lorazepam but patient still not able to tolerate - OR today for amputation - Continue cefepime, metronidazole, vanco (2) Sepsis Comment: - Resolved - Met criteria on 06/19 with fever and leukocytosis; source is left foot gangrene (3) ESRD (end stage renal disease) Code(s): N18.6 - END STAGE RENAL DISEASE Comment: - Continue HD MWF - Continue calcitriol (4) Systolic CHF, chronic Code(s): I50.22 - CHRONIC SYSTOLIC (CONGESTIVE) HEART FAILURE Comment: - Asypmtomatic - EF 40-45% - Severe tricuspid regurg - Likely mod-severe pulmonary hypertension based on previous echo from 2016, unable to visualize on current echo - Continue metoprolol (5) Diabetes Code(s): E11.9 - TYPE 2 DIABETES MELLITUS WITHOUT COMPLICATIONS Comment: - A1c 7.3 - Had been off home meds - Continue Lispro SS (6) Anemia Code(s): D64.9 - ANEMIA, UNSPECIFIED Comment: - AOCD secondary to ESRD (7) HTN (hypertension) Code(s): I10 - ESSENTIAL (PRIMARY) HYPERTENSION Comment: - Normotensive - Continue amlodipine, metoprolol (8) Hyperbilirubinemia Code(s): E80.6 - OTHER DISORDERS OF BILIRUBIN METABOLISM Comment: - Chronic, documented history of alcoholic cirrhosis - Liver US with hepatomegaly and small amount of ascites - Will need outpatient follow up with GI (9) DVT prophylaxis Comment: - Heparin SQ (10) Full code status Code(s): Z78.9 - OTHER SPECIFIED HEALTH STATUS Comment: Status and Disposition: Inpatient. May need MANJEET pending PT eval postoperatively. Attending: Reg Lucas
[2019-06-22] MEDS: Acetaminophen TAB* 325 MG PO PRN (17:16)
[2019-06-22] MEDS: Sevelamer TAB* 800 MG PO SCH (18:07)
[2019-06-22] MEDS: Heparin VIAL(*) 5000 UNITS/ML VIAL (FIVE THOUSAND) SUBCUT SCH (22:10)
[2019-06-22] MEDS: Nicotine Patch Removal NOTE PATCH OFF SCH (22:54)
[2019-06-23] MEDS: oxyCODONE/Acetamin 5/325 MG* TAB PO PRN ×4 (01:33→21:38)
[2019-06-23] MEDS: Acetaminophen TAB* 325 MG PO PRN ×3 (02:56→21:37)
[2019-06-23 05:09] LABS: ABS Basophils 0.1 10^3/ul (0-0.2); ABS Eosinophils 0.6 10^3/ul (0-0.6); ABS Lymphocytes 1.4 10^3/ul (1.0-4.8); ABS Monocytes 1.5 10^3/ul (0-0.8); ABS Neutrophils 13.3 10^3/ul (1.5-7.7); Eosinophil % 3.5 %; Hematocrit 30 % (42-52); Lymphocyte % 8.1 %; Mean Corpuscular HGB Conc 34 g/dL (31-36); Mean Corpuscular Hemoglobin 29 pg (27-31); Mean Corpuscular Volume 84 fL (80-94); Mean Platelet Volume 8.9 fL (7.4-10.4); Nucleated Red Blood Cells % 0.2; Platelet Count 444 10^3/uL (150-450); Red Cell Distribution Width 15 % (10-15); White Blood Count 16.8 10^3/uL (3.5-10.8)
[2019-06-23 05:28] LABS: BUN/Creatinine Ratio 7.3 (8-20); Calcium 8.6 mg/dL (8.6-10.3); EGFR Non-African American 5.8 (>60); Phosphorus 9.8 mg/dL (2.5-5.0); Potassium 4.7 mmol/L (3.5-5.0)
[2019-06-23] MEDS: Heparin VIAL(*) 5000 UNITS/ML VIAL (FIVE THOUSAND) SUBCUT SCH ×3 (05:43→21:37)
[2019-06-23] MEDS ORDERED: Morphine INJ* 4 MG/ML 1 ML SYRINGE (NEW SYRINGE VERSION) IV PRN (05:48)
[2019-06-23] MEDS ORDERED: Vancomycin Random Level* NOTE FOLLOW UP ONE (06:00)
[2019-06-23 06:01] LABS: Vancomycin Random 24.2 mcg/mL
[2019-06-23] MEDS: Sevelamer TAB* 800 MG PO SCH ×3 (10:12→17:31)
[2019-06-23] MEDS: metroNIDAZOLE TAB* 250 MG PO SCH ×2 (10:13→21:37)
[2019-06-23] MEDS: Calcitriol CAP* 0.25 MCG PO SCH ×2 (10:13→21:37)
[2019-06-23] MEDS: Clopidogrel TAB* 75 MG PO SCH (10:13)
[2019-06-23] MEDS: amLODIPine TAB* 5 MG PO SCH (10:13)
[2019-06-23] MEDS: Metoprolol Tartrate TAB* 25 MG PO SCH (10:13)
[2019-06-23] MEDS: Aspirin 81 mg CHEW TAB* 81 MG TAB.CHEW PO SCH (10:13)
[2019-06-23] MEDS: Nicotine PATCH 21 MG/24 HR* PATCH TRANSDERM SCH (10:14)
--- NOTE | 2019-06-23 10:16 | PN ---
Progress Note - Progress Note Date of Service: 06/23/19 SOAP: Subjective: POD #1 Left foot TMA. C/O pain to left foot. Right foot doing ok. Denies CP, SOB , f/c, n/v. Objective: Vital Signs: Temp Pulse Resp BP Pulse Ox 98 F 78 14 124/61 100 06/23/19 07:40 06/23/19 07:40 06/23/19 08:00 06/23/19 07:40 06/23/19 08:00 Gen: A&Ox3, NAD at rest sitting in chair LLE: Dressing C/D/I, calf soft, NT RLE: 5th toe dusky, mild maceration of skin to plantar 5th MTP joint. Sensation decreased. Labs: Laboratory Results - last 24 hr 06/22/19 06/22/19 06/22/19 12:19 16:55 21:03 WBC RBC Hgb Hct MCV MCH MCHC RDW Plt Count MPV Neut % (Auto) Lymph % (Auto) [place] % (Auto) Eos % (Auto) Baso % (Auto) Absolute Neuts (auto) Absolute Lymphs (auto) Absolute Monos (auto) Absolute Eos (auto) Absolute Basos (auto) Absolute Nucleated RBC Nucleated RBC % Sodium Potassium Chloride Carbon Dioxide Anion Gap BUN Creatinine Est GFR ( Amer) Est GFR (Non-Af Amer) BUN/Creatinine Ratio Glucose POC Glucose (mg/dL) 129 H 186 H 122 H Calcium Phosphorus Random Vancomycin 06/23/19 06/23/19 04:43 04:43 WBC 16.8 H RBC 3.50 L Hgb 10.0 L Hct 30 L MCV 84 MCH 29 MCHC 34 RDW 15 Plt Count 444 MPV 8.9 Neut % (Auto) 78.9 Lymph % (Auto) 8.1 [place] % (Auto) 8.8 Eos % (Auto) 3.5 Baso % (Auto) 0.7 Absolute Neuts (auto) 13.3 H Absolute Lymphs (auto) 1.4 Absolute Monos (auto) 1.5 H Absolute Eos (auto) 0.6 Absolute Basos (auto) 0.1 Absolute Nucleated RBC 0.0 Nucleated RBC % 0.2 Sodium 133 L Potassium 4.7 Chloride 92 L Carbon Dioxide 24 Anion Gap 17 H BUN 71 H Creatinine 9.71 H Est GFR ( Amer) 7.0 Est GFR (Non-Af Amer) 5.8 BUN/Creatinine Ratio 7.3 L Glucose 134 H POC Glucose (mg/dL) Calcium 8.6 Phosphorus 9.8 H Random Vancomycin 24.2 Microbiology 06/20/19 21:57 Blood Venous Aerobic Blood Culture - Preliminary No Growth Day 2 06/20/19 21:57 Blood Venous Anaerobic Blood Culture - Preliminary No Growth Day 2 06/20/19 19:45 Blood Venous Aerobic Blood Culture - Preliminary No Growth Day 2 06/20/19 19:45 Blood Venous Anaerobic Blood Culture - Preliminary No Growth Day 2 06/22/19 08:14 Wound - Left Gram Stain - Final 06/16/19 12:40 Nasal Nasal Screen MRSA (PCR) - Final Mrsa Not Detected Assessment: POD #1 Left foot TMA, right foot 5th toe gangrene Plan: Cont IV abx per ID Dry dressing daily to RLE NWB LLE, heel WBAT RLE
[2019-06-23] MEDS: Insulin LISPRO* 1 UNITS UNIT SUBCUT SCH ×4 (10:24→21:30)
--- NOTE | 2019-06-23 10:53 | PN ---
Progress Note - Progress Note Date of Service: 06/23/19 SOAP: Subjective: CC: Bilateral LE necrotic wounds HPI: Mr. Sepulveda is a 48 yo male with PMH significant for ESRD on hemodialysis , DM2, and HTN; who presented to the hospital for bilateral foot wounds. Denies fever, chills, nausea, vomiting, or diarrhea. Reports discomfort in bilateral feet, worse in the left heel today. Objective: Vital Signs 06/23/19 06/23/19 06/23/19 06:59 07:40 07:53 Temperature 98 F Pulse Rate 78 Respiratory 22 18 14 Rate Blood Pressure 124/61 (mmHg) O2 Sat by Pulse 100 Oximetry Physical Exam: General: NAD, sitting up on the side of the bed Neurological: Alert and Oriented HEENT: Moist MM Cardiovascular: Heart rate regular Respirator: Lung sounds clear Abdominal: Bowel sounds present; ABD soft, non tender and non distended MSK: POTTER. Tenderness with palpation of the left forefoot. Skin: Left foot with surgical DSG; clean, dry and intact. Right 5th toe is black and necrotic. There are wounds between the 2nd and 3rd toes and 3rd and 4th toes on the right foot. Laboratory Results - last 24 hr 06/23/19 06/23/19 04:43 04:43 WBC 16.8 H RBC 3.50 L Hgb 10.0 L Hct 30 L MCV 84 MCH 29 MCHC 34 RDW 15 Plt Count 444 MPV 8.9 Neut % (Auto) 78.9 Lymph % (Auto) 8.1 [place] % (Auto) 8.8 Eos % (Auto) 3.5 Baso % (Auto) 0.7 Absolute Neuts (auto) 13.3 H Absolute Lymphs (auto) 1.4 Absolute Monos (auto) 1.5 H Absolute Eos (auto) 0.6 Absolute Basos (auto) 0.1 Absolute Nucleated RBC 0.0 Nucleated RBC % 0.2 Sodium 133 L Potassium 4.7 Chloride 92 L Carbon Dioxide 24 Anion Gap 17 H BUN 71 H Creatinine 9.71 H Est GFR ( Amer) 7.0 Est GFR (Non-Af Amer) 5.8 BUN/Creatinine Ratio 7.3 L Glucose 134 H POC Glucose (mg/dL) Calcium 8.6 Phosphorus 9.8 H Random Vancomycin 24.2 Microbiology 06/20/19 21:57 Aerobic Blood Culture - Preliminary Blood Venous No Growth Day 2 Anaerobic Blood Culture - Preliminary No Growth Day 2 06/20/19 19:45 Aerobic Blood Culture - Preliminary Blood Venous No Growth Day 2 Anaerobic Blood Culture - Preliminary No Growth Day 2 06/22/19 08:14 Gram Stain - Final Wound - Left 06/16/19 12:40 Nasal Screen MRSA (PCR) - Final Nasal Mrsa Not Detected Assessment: 1. Bilateral foot gangrene. Left foot s/p TMA. Right 5th toe with dry necrotic tissue, and wound between the toes. Plain film xrays with no signs of osteomyelitis. Unable to tolerate MRI. S/P revascularization of the left LE with Dr. Phillips. In setting of chronic wounds, suspect this represents chronic osteomyelitis. Wound cultures from the OR on the left foot with no organisms, final culture pending. Febrile 06/20 with T max 103.4, now afebrile and improving leukocytosis. CRP elevated. 2. DM2. 3. ESRD, on hemodialysis. Plan: Continue Vanco, cefepime, and flagyl. We will continue to follow along.
[2019-06-23] MEDS: Patiromer POWDER* 8.4 GM PAK PO SCH (11:49)
--- NOTE | 2019-06-23 12:25 | PN ---
Subjective Date of Service: 06/23/19 Interval History: Mr. Sepulveda is feeling poor today. He is having significant pain in the operative foot. Rates it a /10. He slept well overnight when pain was controlled, but he had severe pain upon waking this morning and he does not feel as though they have been able to "catch up with it." Denies CP, SOB, cough , N/V. No concerns from nursing. Family History: Unchanged from Admission Social History: Unchanged from Admission Past Medical History: Unchanged from Admission Objective Active Medications: Acetaminophen (Tylenol Tab*) 650 mg PO Q4H PRN PAIN - MODERATE Amlodipine Besylate (Norvasc Tab*) 10 mg PO DAILY [facility] Aspirin (Aspirin 81 Mg Chew Tab*) 81 mg PO DAILY [facility] Calcitriol (Rocaltrol Cap*) 0.75 mcg PO BID [facility] Clopidogrel Bisulfate (Plavix Tab*) 75 mg PO DAILY [facility] Dextrose (D50w Syringe 50 Ml*) 12.5 gm IV PUSH .FOR FS < 60 - SS PRN FS < 60 Heparin Sodium (Porcine) (Heparin Vial(*)) 5,000 units SUBCUT Q8HR [facility] Cefepime HCl 0.5 gm/ Sodium (Chloride) 50 mls @ 100 mls/hr IVPB [id number]@1600 [facility] Vancomycin HCl 1,000 mg/ (Sodium Chloride) 250 mls @ 166.667 mls/hr IV ONCE ONE Insulin Human Lispro (Humalog*) 0 units SUBCUT ACHS [facility]; Protocol Metoprolol Tartrate (Lopressor Tab*) 25 mg PO DAILY [facility] Metronidazole (Flagyl Tab*) 500 mg PO BID [facility] Morphine Sulfate (Morphine Inj (Syringe))*) 2 mg IV Q4H PRN PAIN - SEVERE Nicotine (Nicotine Patch 21 Mg/24 Hr*) 1 patch TRANSDERM DAILY [facility] Ondansetron HCl (Zofran Inj*) 4 mg IV Q4H PRN NAUSEA Oxycodone/Acetaminophen (Percocet 5/325 Tab*) 1 tab PO Q6H PRN PAIN - MODERATE Patiromer (Veltassa Powder*) 8.4 gm PO DAILY [facility] Sevelamer Carbonate (Renvela Tab*) 1,600 mg PO TID WITH MEALS [facility] Vital Signs - 8 hr 06/23/19 06/23/19 06/23/19 05:45 05:53 06:59 Temperature Pulse Rate Respiratory 19 19 22 Rate Blood Pressure (mmHg) O2 Sat by Pulse Oximetry 06/23/19 06/23/19 06/23/19 07:40 07:53 08:00 Temperature 98 F Pulse Rate 78 Respiratory 18 14 14 Rate Blood Pressure 124/61 (mmHg) O2 Sat by Pulse 100 100 Oximetry 06/23/19 06/23/19 06/23/19 10:11 11:43 11:48 Temperature 97.1 F Pulse Rate 79 Respiratory 14 16 14 Rate Blood Pressure 137/78 (mmHg) O2 Sat by Pulse 100 Oximetry Oxygen Devices in Use Now: None Appearance: Middle-aged male sitting in chair in NAD Ears/Nose/Mouth/Throat: Mucous Membranes Moist Neck: NL Appearance and Movements; NL JVP, Trachea Midline Respiratory: Symmetrical Chest Expansion and Respiratory Effort, Clear to Auscultation Cardiovascular: NL Sounds; No Murmurs; No JVD, RRR, - - RUE fistula Abdominal: NL Sounds; No Tenderness; No Distention Extremities: - - Mild nonpitting BLE Skin: - - Surgical dressing left foot Neurological: Alert and Oriented x 3 Lines/Tubes/Other Access: Clean, Dry and Intact Peripheral IV Nutrition: Taking PO's Result Diagrams: 06/23/19 04:43 06/23/19 04:43 Assess/Plan/Problems-Billing Assessment: Ms. Sepulveda is a 48 yo M with a PMH of type 2 DM, ESRD who was admitted on with gangrenous changes to his left foot. - Patient Problems (1) Gangrene of left foot Code(s): I96 - GANGRENE, NOT ELSEWHERE CLASSIFIED Comment: - POD #1 left transmetatarsal amputation with Dr. Rondon - Toes 3-5, infection since at least February 2019 - Hx of diabetes and abnormal ABIs - MRI attempted again 06/20 with lorazepam but patient still not able to tolerate - Appreciate ID consult - Continue cefepime, metronidazole, vanco (2) PAD (peripheral artery disease) Code(s): I73.9 - PERIPHERAL VASCULAR DISEASE, UNSPECIFIED Comment: - Appreciate consultation from Dr. Phillips; pelvic and bilateral lower extremity arteriography performed 06/17 with stent placed in LLE - RLE was noted to be patent - Continue aspirin, Plavix (3) Sepsis Comment: - Resolved - Met criteria on 06/19 with fever and leukocytosis; source is left foot gangrene (4) ESRD (end stage renal disease) Code(s): N18.6 - END STAGE RENAL DISEASE Comment: - Continue HD MWF - Continue calcitriol, Renvela, patiromer (5) Systolic CHF, chronic Code(s): I50.22 - CHRONIC SYSTOLIC (CONGESTIVE) HEART FAILURE Comment: - Asypmtomatic - EF 40-45% - Severe tricuspid regurg - Likely mod-severe pulmonary hypertension based on previous echo from 2016, unable to visualize on current echo - Continue metoprolol (6) Diabetes Code(s): E11.9 - TYPE 2 DIABETES MELLITUS WITHOUT COMPLICATIONS Comment: - A1c 7.3 - Had been off home meds - Continue Lispro SS (7) Anemia Code(s): D64.9 - ANEMIA, UNSPECIFIED Comment: - AOCD secondary to ESRD (8) HTN (hypertension) Code(s): I10 - ESSENTIAL (PRIMARY) HYPERTENSION Comment: - Normotensive - Continue amlodipine, metoprolol (9) Hyperbilirubinemia Code(s): E80.6 - OTHER DISORDERS OF BILIRUBIN METABOLISM Comment: - Chronic, documented history of alcoholic cirrhosis - Liver US with hepatomegaly and small amount of ascites - Will need outpatient follow up with GI (10) DVT prophylaxis Comment: - Heparin SQ (11) Full code status Code(s): Z78.9 - OTHER SPECIFIED HEALTH STATUS Comment: Status and Disposition: Inpatient. Will likely need MANJEET. Attending: Reg Lucas
--- NOTE | 2019-06-23 14:38 | PN ---
Progress Note - Progress Note Date of Service: 06/23/19 Note: Inpatient Acute Dialysis Note for ESRD Performed by Dr. Felix Garcia, [facility] Nephrology 06/23/2019 48 YO [place] with ESRD 2/2 DM s/p gangrenous Lt toes, s/p toe Amputation yesterday I saw him today on HD for ESRD. HD routine MWF. He was seen and examined on HD. Today he feels Ok & has no new complaints. HD Routine: MWF HD Duration: 3.0 Hr UF Goal: 2 L/Rx Temp Pulse Resp BP Pulse Ox 97.1 F 79 14 137/78 100 06/23/19 11:43 06/23/19 11:43 06/23/19 11:48 06/23/19 11:43 06/23/19 11:43 BP: 140-160/90 HR: 76/m Blood Flow: 500 cc/min Dialysate Flow: 600 cc/min Bath: K: 2K Ca: 2.5Ca Na: 138 Hco3: 35 Temp: 36 C Dialyzer: Revaclear Max Access: Rt UA AVF No Access Related Issues Meds with HD: Heparin Loading & Maintenance: 2000 & 1000 IU/Hr except last Hr Tolerates HD well. No Intradialytic Hypotension. Labs: Sodium 133 mmol/L (135-145) L 06/23/19 04:43 Potassium 4.7 mmol/L (3.5-5.0) 06/23/19 04:43 BUN 71 mg/dL (6-24) H 06/23/19 04:43 Creatinine 9.71 mg/dL (0.67-1.17) H 06/23/19 04:43 Hemoglobin A1c 7.3 % (4.0-5.6) H 06/16/19 11:29 Calcium 8.6 mg/dL (8.6-10.3) 06/23/19 04:43 AST 25 U/L (13-39) 06/16/19 11:29 ALT 20 U/L (7-52) 06/16/19 11:29
[2019-06-23] MEDS: Cefepime(*) 0.5 GM in NS 0.9% 50 ML* 50 ML IVPB SCH (16:03)
[2019-06-23] MEDS ORDERED: Vancomycin(*) 1,000 MG in NS 0.9% 250 ML* 250 ML IV ONE (17:00)
[2019-06-23] MEDS: Morphine INJ* 2 MG/ML 1 ML SYRINGE (TWO MG - NEW SYRINGE VERSION) IV PRN (18:42)
[2019-06-23] MEDS: Nicotine Patch Removal NOTE PATCH OFF SCH (21:42)
[2019-06-24] MEDS: oxyCODONE/Acetamin 5/325 MG* TAB PO PRN ×4 (01:15→20:57)
[2019-06-24 06:07] LABS: Hematocrit 30 % (42-52); Hemoglobin 10.1 g/dL (14.0-18.0); Mean Corpuscular HGB Conc 34 g/dL (31-36); Mean Corpuscular Hemoglobin 29 pg (27-31); Mean Corpuscular Volume 85 fL (80-94); Mean Platelet Volume 9.7 fL (7.4-10.4); Platelet Count 460 10^3/uL (150-450); Red Blood Count 3.53 10^6 /uL (4.18-5.48); Red Cell Distribution Width 15 % (10-15); White Blood Count 17.2 10^3/uL (3.5-10.8)
[2019-06-24] MEDS: Heparin VIAL(*) 5000 UNITS/ML VIAL (FIVE THOUSAND) SUBCUT SCH ×3 (06:21→22:17)
[2019-06-24 06:28] LABS: BUN/Creatinine Ratio 6.7 (8-20); Calcium 8.8 mg/dL (8.6-10.3); EGFR African American 9.5 (>60); EGFR Non-African American 7.9 (>60); Phosphorus 6.6 mg/dL (2.5-5.0); Potassium 4.3 mmol/L (3.5-5.0)
[2019-06-24 07:47] LABS: ABS Basophils 0.1 10^3/ul (0-0.2); ABS Eosinophils 0.4 10^3/ul (0-0.6); ABS Lymphocytes 3.9 10^3/ul (1.0-4.8); ABS Monocytes 1.4 10^3/ul (0-0.8); ABS Neutrophils 11.4 10^3/ul (1.5-7.7); ABS Nucleated RBC 0.2 10^3/ul; Eosinophil % 2.3 %; Lymphocyte % 22.7 %
[2019-06-24] MEDS: Insulin LISPRO* 1 UNITS UNIT SUBCUT SCH ×4 (07:53→20:58)
[2019-06-24] MEDS: Nicotine PATCH 21 MG/24 HR* PATCH TRANSDERM SCH (08:30)
[2019-06-24] MEDS: Calcitriol CAP* 0.25 MCG PO SCH ×2 (08:31→20:54)
[2019-06-24] MEDS: amLODIPine TAB* 5 MG PO SCH (08:31)
[2019-06-24] MEDS: Aspirin 81 mg CHEW TAB* 81 MG TAB.CHEW PO SCH (08:31)
[2019-06-24] MEDS: Clopidogrel TAB* 75 MG PO SCH (08:31)
[2019-06-24] MEDS: metroNIDAZOLE TAB* 250 MG PO SCH (08:31)
[2019-06-24] MEDS: Metoprolol Tartrate TAB* 25 MG PO SCH (08:31)
[2019-06-24] MEDS: Patiromer POWDER* 8.4 GM PAK PO SCH (08:31)
[2019-06-24] MEDS: Sevelamer TAB* 800 MG PO SCH ×3 (08:31→18:00)
--- NOTE | 2019-06-24 11:22 | PN ---
Progress Note - Progress Note Date of Service: 06/24/19 SOAP: Subjective: CC: Bilateral LE necrotic wounds HPI: Mr. Sepulveda is a 48 yo male with PMH significant for ESRD on hemodialysis , DM2, and HTN; who presented to the hospital for bilateral foot wounds. S/P left TMA. Denies fever, chills, nausea, vomiting, or diarrhea. Improving pain in feet. Reports discomfort from hemorrhoids. Objective: Vital Signs - 8 hr 06/24/19 06/24/19 06/24/19 08:00 08:32 11:22 Temperature 98 F Pulse Rate 61 Respiratory 18 18 16 Rate Blood Pressure 120/64 (mmHg) O2 Sat by Pulse 97 100 Oximetry Physical Exam: General: NAD, sitting up on the side of the bed Neurological: Alert and Oriented HEENT: Moist MM Cardiovascular: Heart rate regular Respirator: Lung sounds clear Abdominal: Bowel sounds present; ABD soft, non tender and non distended MSK: POTTER Skin: Left foot with surgical DSG; clean, dry and intact. Right foot dressing intact Laboratory Results - last 24 hr 06/23/19 06/24/19 06/24/19 20:58 05:32 05:32 WBC 17.2 H RBC 3.53 L Hgb 10.1 L Hct 30 L MCV 85 MCH 29 MCHC 34 RDW 15 Plt Count 460 H MPV 9.7 Neut % (Auto) 66.3 Lymph % (Auto) 22.7 [place] % (Auto) 8.1 Eos % (Auto) 2.3 Baso % (Auto) 0.6 Absolute Neuts (auto) 11.4 H Absolute Lymphs (auto) 3.9 Absolute Monos (auto) 1.4 H Absolute Eos (auto) 0.4 Absolute Basos (auto) 0.1 Absolute Nucleated RBC 0.2 Neutrophils % 78.0 Lymphocytes % 15.0 Monocytes % 5.0 Eosinophils % 2.0 Nucleated RBC % 1.0 Nucleated RBCs/100 WBC 1.0 H Normal RBC Morphology Normal Sodium 135 Potassium 4.3 Chloride 94 L Carbon Dioxide 28 Anion Gap 13 H BUN 50 H Creatinine 7.44 H Est GFR ( Amer) 9.5 Est GFR (Non-Af Amer) 7.9 BUN/Creatinine Ratio 6.7 L Glucose 108 H POC Glucose (mg/dL) 105 H Calcium 8.8 Phosphorus 6.6 H Microbiology 06/22/19 08:14 Anaerobic Culture - Preliminary Wound - Left No Growth Day 2 Gram Stain - Final Wound Culture - Preliminary Citrobacter Freundii 06/20/19 21:57 Aerobic Blood Culture - Preliminary Blood Venous No Growth Day 3 Anaerobic Blood Culture - Preliminary No Growth Day 3 06/20/19 19:45 Aerobic Blood Culture - Preliminary Blood Venous No Growth Day 3 Anaerobic Blood Culture - Preliminary No Growth Day 3 06/16/19 12:40 Nasal Screen MRSA (PCR) - Final Nasal Mrsa Not Detected Assessment: 1. Bilateral foot gangrene. Plain film xrays with no signs of osteomyelitis. Unable to tolerate MRI. S/P revascularization of the left LE with Dr. Phillips. In setting of chronic wounds, suspect this represents chronic osteomyelitis. Left foot s/p TMA. Right 5th toe with dry necrotic tissue, and wounds between the toes. Wound cultures from the OR on the left foot citrobacter. Afebrile since 06/20 with T max 103.4, persistent leukocytosis. CRP elevated. 2. Persistent leukocytosis. Now afebrile. Blood cultures with no growth. Unclear cause at this time, ? continued foot infection or another infection (c diff, UTI, ABD infection). Denies urinary symptoms, back pain, ABD pain, diarrhea. 3. DM2. 4. ESRD, on hemodialysis. Plan: Discontinue Flagyl. Continue Vanco and cefepime (renal/HD dosing). Will check CRP in AM. He will need a PICC vs midline for extended course of ABX (will need to discuss with nephrology).
[2019-06-24] MEDS: Ondansetron INJ* 2 MG/ML VIAL IV PRN (13:05)
--- NOTE | 2019-06-24 17:56 | PN ---
Subjective Date of Service: 06/24/19 Interval History: Mr. Sepulveda states that he has LLE heel pain, but denies pain at amputation site. He reports b/l LE edema with feet at ground. He reports that pain and edema improve with elevation of extremity. He does not have a PCP or a pan shaker. He denies CP, SOB, cough, fever, chills. He reports mild abd pain and nausea today, but denies vomiting. No other complaints today. Family History: Unchanged from Admission Social History: Unchanged from Admission Past Medical History: Unchanged from Admission Objective Active Medications: Acetaminophen (Tylenol Tab*) 650 mg PO Q4H PRN PRN Reason: PAIN - MILD Last Admin: 06/23/19 21:37 Dose: 650 mg Amlodipine Besylate (Norvasc Tab*) 10 mg PO DAILY [facility] Last Admin: 06/24/19 08:31 Dose: 10 mg Aspirin (Aspirin 81 Mg Chew Tab*) 81 mg PO DAILY [facility] Last Admin: 06/24/19 08:31 Dose: 81 mg Calcitriol (Rocaltrol Cap*) 0.75 mcg PO BID [facility] Last Admin: 06/24/19 08:31 Dose: 0.75 mcg Clopidogrel Bisulfate (Plavix Tab*) 75 mg PO DAILY [facility] Last Admin: 06/24/19 08:31 Dose: 75 mg Dextrose (D50w Syringe 50 Ml*) 12.5 gm IV PUSH .FOR FS < 60 - SS PRN PRN Reason: FS < 60 Heparin Sodium (Porcine) (Heparin Vial(*)) 5,000 units SUBCUT Q8HR [facility] Last Admin: 06/24/19 13:04 Dose: 5,000 units Cefepime HCl 0.5 gm/ Sodium (Chloride) 50 mls @ 100 mls/hr IVPB MoWeFr@1600 [facility] Last Admin: 06/23/19 16:03 Dose: 100 mls/hr Insulin Human Lispro (Humalog*) 0 units SUBCUT ACHS [facility]; Protocol Last Admin: 06/24/19 13:04 Dose: 3 units Metoprolol Tartrate (Lopressor Tab*) 25 mg PO DAILY [facility] Last Admin: 06/24/19 08:31 Dose: 25 mg Miscellaneous (Ativan Pyxis Benavides) 1 ea N/A .PYXIS BENAVIDES PRN PRN Reason: PER PROTOCOL Morphine Sulfate (Morphine Inj (Syringe))*) 2 mg IV Q4H PRN PRN Reason: PAIN - SEVERE Last Admin: 06/23/19 18:42 Dose: 2 mg Nicotine (Nicotine Patch 21 Mg/24 Hr*) 1 patch TRANSDERM DAILY [facility] Last Admin: 06/24/19 08:30 Dose: 1 patch Ondansetron HCl (Zofran Inj*) 4 mg IV Q4H PRN PRN Reason: NAUSEA Last Admin: 06/24/19 13:05 Dose: 4 mg Oxycodone/Acetaminophen (Percocet 5/325 Tab*) 1 tab PO Q4H PRN PRN Reason: PAIN - MODERATE Last Admin: 06/24/19 16:28 Dose: 1 tab Patiromer (Veltassa Powder*) 8.4 gm PO DAILY [facility] Last Admin: 06/24/19 08:31 Dose: 8.4 gm Pharmacy Consult (Vancomycin Per Pharmacy*) 1 note FOLLOW UP .VANC PER PHARMACY [facility]; Protocol Pharmacy Consult (Vancomycin - Dialysis Dosing*) 1 note FOLLOW UP . [facility] Pharmacy Profile Note (Nicotine Patch Removal Note*) 1 note PATCH OFF 2100 [facility] Last Admin: 06/23/19 21:42 Dose: 1 note Sevelamer Carbonate (Renvela Tab*) 1,600 mg PO TID WITH MEALS [facility] Last Admin: 06/24/19 13:04 Dose: 1,600 mg Vital Signs: Temp Pulse Resp BP Pulse Ox 96.9 F 57 18 118/66 98 06/24/19 15:38 06/24/19 15:38 06/24/19 16:28 06/24/19 15:38 06/24/19 16:00 Oxygen Devices in Use Now: None Appearance: Mr. Sepulveda is a middle-aged black male who is sitting in chair with LLE elevated. He ppears older than his stated age and chronically ill. He is currently in no acute distress. Eyes: No Scleral Icterus, PERRLA Ears/Nose/Mouth/Throat: NL Teeth, Lips, Gums, Clear Oropharnyx, Mucous Membranes Moist Neck: NL Appearance and Movements; NL JVP, Trachea Midline Respiratory: Symmetrical Chest Expansion and Respiratory Effort, Clear to Auscultation Cardiovascular: NL Sounds; No Murmurs; No JVD, RRR, No Edema Abdominal: NL Sounds; No Tenderness; No Distention, No Hepatosplenomegaly Extremities: No Edema, No Clubbing, Cyanosis, - - dressings in place to RLE, LLE - both are CDI Neurological: Alert and Oriented x 3 Result Diagrams: 06/24/19 05:32 06/24/19 05:32 Microbiology and Other Data: Microbiology 06/16/19 12:40 Nasal Screen MRSA (PCR) - Final Nasal Mrsa Not Detected Assess/Plan/Problems-Billing Assessment: Ms. Sepulveda is a 48 yo M with a PMH of type 2 DM, ESRD on HD who was admitted on 06/16/19 with gangrenous changes to his b/l feet and is s/p L TMA 06/22/2019. - Patient Problems (1) Gangrene of left foot Current Visit: Yes Status: Acute Code(s): I96 - GANGRENE, NOT ELSEWHERE CLASSIFIED SNOMED Code(s): 35254297362451128 Comment: - s/p left transmetatarsal amputation with Dr. Rondon 06/22/2019 - Toes 3-5, infection since at least February 2019 - Hx of diabetes and abnormal ABIs - MRI attempted again 06/20 with lorazepam but patient still not able to tolerate - Appreciate ID consult - Continue cefepime, metronidazole, vanco - ortho consulting; thank you for recommendations (2) Gangrene of toe of right foot Current Visit: Yes Status: Acute Code(s): I96 - GANGRENE, NOT ELSEWHERE CLASSIFIED SNOMED Code(s): 22820530115134024 Comment: -ortho consulting; thank you for recommendations -RLE patent -continue daily dry dressings to gangrenous R 5th digit (3) PAD (peripheral artery disease) Comment: - Appreciate consultation from Dr. 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 Will likely need MANJEET.
[2019-06-24] MEDS: Nicotine Patch Removal NOTE PATCH OFF SCH (20:55)
[2019-06-25] MEDS: oxyCODONE/Acetamin 5/325 MG* TAB PO PRN ×4 (04:04→23:52)
[2019-06-25 05:17] LABS: Hematocrit 31 % (42-52); Hemoglobin 10.2 g/dL (14.0-18.0); Mean Corpuscular HGB Conc 33 g/dL (31-36); Mean Corpuscular Hemoglobin 28 pg (27-31); Mean Corpuscular Volume 86 fL (80-94); Mean Platelet Volume 9.2 fL (7.4-10.4); Platelet Count 509 10^3/uL (150-450); Red Cell Distribution Width 15 % (10-15); White Blood Count 17.7 10^3/uL (3.5-10.8)
[2019-06-25 05:31] LABS: BUN/Creatinine Ratio 7.2 (8-20); C Reactive Protein 148.02 mg/L (<8.01); Calcium 9.1 mg/dL (8.6-10.3); EGFR African American 7.7 (>60); EGFR Non-African American 6.4 (>60)
[2019-06-25 05:38] LABS: ABS Basophils 0.1 10^3/ul (0-0.2); ABS Eosinophils 0.5 10^3/ul (0-0.6); ABS Lymphocytes 2.3 10^3/ul (1.0-4.8); ABS Monocytes 1.5 10^3/ul (0-0.8); ABS Neutrophils 13.3 10^3/ul (1.5-7.7); ABS Nucleated RBC 0.1 10^3/ul; Eosinophil % 3.1 %; Lymphocyte % 13.1 %; Nucleated Red Blood Cells % 0.6
[2019-06-25 05:51] LABS: Potassium 5.1 mmol/L (3.5-5.0)
[2019-06-25 05:52] LABS: Vancomycin Random 25.4 mcg/mL
[2019-06-25] MEDS: Heparin VIAL(*) 5000 UNITS/ML VIAL (FIVE THOUSAND) SUBCUT SCH ×3 (06:06→21:38)
[2019-06-25] MEDS ORDERED: Vancomycin Random Level* NOTE FOLLOW UP ONE (09:00)
--- NOTE | 2019-06-25 09:55 | PN ---
Progress Note - Progress Note Date of Service: 06/25/19 Note: Inpatient Acute Dialysis Note for ESRD Performed by Dr. Felix Garcia, [facility] Nephrology 06/25/2019 48 YO [place] with ESRD 2/2 DM s/p gangrenous Lt toes, s/p Lt TMA on IV ABx I saw him today on HD for ESRD. He feels Ok & has no new complaints. HD Routine: MWF HD Duration: 3.0 Hr UF Goal: 3 L/Rx Temp Pulse Resp BP Pulse Ox 98.4 F 76 18 118/50 100 06/25/19 03:52 06/25/19 03:52 06/25/19 07:24 06/25/19 03:52 06/25/19 03:52 BP: 120-130/80, much better than outpatient readings. HR: 80/m Blood Flow: 500 cc/min Dialysate Flow: 600 cc/min Bath: K: 2K Ca: 2.5Ca Na: 138 Hco3: 35 Temp: 36 C Dialyzer: Revaclear Max Access: Rt UA AVF No Access Related Issues Placing a PICC line isn't a good idea, may consider Rt IJ Med line or Port for rodent exterminator IV ABx Tolerates HD well. No Intradialytic Hypotension. Labs: Sodium 132 mmol/L (135-145) L 06/25/19 05:01 Potassium 5.1 mmol/L (3.5-5.0) H 06/25/19 05:01 BUN 64 mg/dL (6-24) H 06/25/19 05:01 Creatinine 8.91 mg/dL (0.67-1.17) H 06/25/19 05:01 Hemoglobin A1c 7.3 % (4.0-5.6) H 06/16/19 11:29 Calcium 9.1 mg/dL (8.6-10.3) 06/25/19 05:01 AST 25 U/L (13-39) 06/16/19 11:29 ALT 20 U/L (7-52) 06/16/19 11:29
--- NOTE | 2019-06-25 11:35 | PN ---
Progress Note - Progress Note Date of Service: 06/25/19 SOAP: Subjective: CC: Bilateral LE necrotic wounds HPI: Mr. Sepulveda is a 48 yo male with PMH significant for ESRD on hemodialysis , DM2, and HTN; who presented to the hospital for bilateral foot wounds. S/P left TMA. Denies fever, chills, neck/back pain, ABD pain, nausea, vomiting, or diarrhea. Improving pain in feet. Reports discomfort from hemorrhoids has mostly resolved. He states that he doesn't urinate in the setting of HD. Objective: Vital Signs - 8 hr 06/25/19 06/25/19 06/25/19 03:52 04:04 06:35 Temperature 98.4 F Pulse Rate 76 Respiratory 16 16 16 Rate Blood Pressure 118/50 (mmHg) O2 Sat by Pulse 100 Oximetry Physical Exam: General: NAD, sitting up on the side of the bed Neurological: Alert and Oriented HEENT: Moist MM Cardiovascular: Heart rate regular Respirator: Lung sounds clear Abdominal: Bowel sounds present; ABD soft, non tender and non distended MSK: POTTER. No tenderness with palpation of the neck, back or spine Skin: Left foot with surgical incision, well approximated with sutures intact. Right foot 5th toe with dry necrotic tissue, ulcers between the 3rd/4th toes Laboratory Results - last 24 hr 06/25/19 06/25/19 06/25/19 05:01 05:01 07:33 WBC 17.7 H RBC 3.60 L Hgb 10.2 L Hct 31 L MCV 86 MCH 28 MCHC 33 RDW 15 Plt Count 509 H MPV 9.2 Neut % (Auto) 74.9 Lymph % (Auto) 13.1 [place] % (Auto) 8.2 Eos % (Auto) 3.1 Baso % (Auto) 0.7 Absolute Neuts (auto) 13.3 H Absolute Lymphs (auto) 2.3 Absolute Monos (auto) 1.5 H Absolute Eos (auto) 0.5 Absolute Basos (auto) 0.1 Absolute Nucleated RBC 0.1 Nucleated RBC % 0.6 Hem Pathologist Commnt Sodium 132 L Potassium 5.1 H Chloride 92 L Carbon Dioxide 25 Anion Gap 15 H BUN 64 H Creatinine 8.91 H Est GFR ( Amer) 7.7 Est GFR (Non-Af Amer) 6.4 BUN/Creatinine Ratio 7.2 L Glucose 107 H POC Glucose (mg/dL) 124 H Calcium 9.1 C-Reactive Protein 148.02 H Random Vancomycin 25.4 Microbiology 06/22/19 08:14 Anaerobic Culture - Preliminary Wound - Left No Growth Day 3 Gram Stain - Final Wound Culture - Preliminary Citrobacter Freundii 06/20/19 21:57 Aerobic Blood Culture - Preliminary Blood Venous No Growth Day 4 Anaerobic Blood Culture - Preliminary No Growth Day 4 06/20/19 19:45 Aerobic Blood Culture - Preliminary Blood Venous No Growth Day 4 Anaerobic Blood Culture - Preliminary No Growth Day 4 06/16/19 12:40 Nasal Screen MRSA (PCR) - Final Nasal Mrsa Not Detected Assessment: 1. Bilateral foot gangrene. Plain film xrays with no signs of osteomyelitis. Unable to tolerate MRI. S/P revascularization of the left LE with Dr. Phillips. In setting of chronic wounds, suspect this represents chronic osteomyelitis. Left foot s/p TMA, POD #3. Right 5th toe with dry necrotic tissue, and wounds between the toes. Wound cultures from the OR on the left foot citrobacter. Afebrile since 06/20 with T max 103.4, persistent leukocytosis. CRP elevated. Awaiting revascularization on the right prior to surgery. 2. Persistent leukocytosis. Afebrile. Blood cultures with no growth to date. CRP elevated. Unclear cause at this time, ? continued foot infection or another infection (c diff, UTI, ABD infection, PNA). Denies urinary symptoms, respiratory symptoms, neck/back pain, ABD pain, or diarrhea. 3. DM2. 4. ESRD, on hemodialysis. Plan: Continue Vanco and cefepime (renal/HD dosing). He will need a PICC vs midline for extended course of ABX (will need to discuss with nephrology). In setting of persistent leukocytosis and unknown cause, will recheck blood cultures.
[2019-06-25] MEDS: Insulin LISPRO* 1 UNITS UNIT SUBCUT SCH ×4 (11:51→21:33)
--- NOTE | 2019-06-25 12:12 | PN ---
Progress Note - Progress Note Date of Service: 06/25/19 SOAP: Subjective: POD #2 Left foot TMA. C/O pain to left and right foot. States that pain may be due to swelling. Denies CP, SOB, f/c, n/v. Objective: Vital Signs Temp 98.4 F 06/25/19 03:52 Pulse 76 06/25/19 03:52 Resp 18 06/25/19 07:24 BP 118/50 06/25/19 03:52 Pulse Ox 100 06/25/19 03:52 Intake & Output 06/24/19 06/25/19 06/25/19 18:59 06:59 18:59 Intake Total 680 1220 Output Total 0 0 Balance 680 1220 Intake: Oral 680 1220 Output: Urine 0 0 Other: Estimated Stool Amount Medium Gen: A&Ox3, NAD at rest sitting in chair LLE: Dressing C/D/I, Dressing was changed today. Incision is c/d/i. Small area of drainage plantar to the incision at midline of foot. Drainage is sero sanguineous. calf soft, NT RLE: 5th toe dusky, mild maceration of skin to plantar 5th MTP joint. Sensation decreased. Assessment: POD #3 Left foot TMA, right foot 5th toe gangrene Plan: Cont IV abx per ID Dry dressing daily to RLE NWB LLE, heel WBAT RLE Awaiting re vascularization of right foot before proceeding with 5th ray amp
[2019-06-25] MEDS: Metoprolol Tartrate TAB* 25 MG PO SCH (12:14)
[2019-06-25] MEDS: Nicotine PATCH 21 MG/24 HR* PATCH TRANSDERM SCH (12:14)
[2019-06-25] MEDS: Sevelamer TAB* 800 MG PO SCH ×3 (12:14→17:25)
[2019-06-25] MEDS: amLODIPine TAB* 5 MG PO SCH (12:15)
[2019-06-25] MEDS: Calcitriol CAP* 0.25 MCG PO SCH ×2 (12:15→21:37)
[2019-06-25] MEDS: Clopidogrel TAB* 75 MG PO SCH (12:15)
[2019-06-25] MEDS: Aspirin 81 mg CHEW TAB* 81 MG TAB.CHEW PO SCH (12:15)
[2019-06-25] MEDS: Patiromer POWDER* 8.4 GM PAK PO SCH (12:16)
[2019-06-25] MEDS ORDERED: Vancomycin(*) 1,000 MG in NS 0.9% 250 ML* 250 ML IV ONE (15:00)
[2019-06-25] MEDS: Witch Hazel PAD* JAR TOPICAL SCH (16:22)
[2019-06-25] MEDS: Cefepime(*) 0.5 GM in NS 0.9% 50 ML* 50 ML IVPB SCH (16:52)
--- NOTE | 2019-06-25 16:58 | PN ---
Subjective Date of Service: 06/25/19 Interval History: Mr. Sepulveda states that he is feeling tired, depressed today. He had HD today and reports an episode of nausea after. He continues to have L foot pain , rated at 7/10. He has no other complaints today. Family History: Unchanged from Admission Social History: Unchanged from Admission Past Medical History: Unchanged from Admission Objective Active Medications: Acetaminophen (Tylenol Tab*) 650 mg PO Q4H PRN PRN Reason: PAIN - MILD Last Admin: 06/23/19 21:37 Dose: 650 mg Amlodipine Besylate (Norvasc Tab*) 10 mg PO DAILY [facility] Last Admin: 06/25/19 12:15 Dose: 10 mg Aspirin (Aspirin 81 Mg Chew Tab*) 81 mg PO DAILY [facility] Last Admin: 06/25/19 12:15 Dose: 81 mg Calcitriol (Rocaltrol Cap*) 0.75 mcg PO BID [facility] Last Admin: 06/25/19 12:15 Dose: 0.75 mcg Clopidogrel Bisulfate (Plavix Tab*) 75 mg PO DAILY [facility] Last Admin: 06/25/19 12:15 Dose: 75 mg Dextrose (D50w Syringe 50 Ml*) 12.5 gm IV PUSH .FOR FS < 60 - SS PRN PRN Reason: FS < 60 Heparin Sodium (Porcine) (Heparin Vial(*)) 5,000 units SUBCUT Q8HR [facility] Last Admin: 06/25/19 14:40 Dose: 5,000 units Cefepime HCl 0.5 gm/ Sodium (Chloride) 50 mls @ 100 mls/hr IVPB [id number]@1600 [facility] Last Admin: 06/23/19 16:03 Dose: 100 mls/hr Insulin Human Lispro (Humalog*) 0 units SUBCUT ACHS [facility]; Protocol Last Admin: 06/25/19 12:57 Dose: 3 units Metoprolol Tartrate (Lopressor Tab*) 25 mg PO DAILY [facility] Last Admin: 06/25/19 12:14 Dose: 25 mg Miscellaneous (Ativan Pyxis Benavides) 1 ea N/A .PYXIS BENAVIDES PRN PRN Reason: PER PROTOCOL Morphine Sulfate (Morphine Inj (Syringe))*) 2 mg IV Q4H PRN PRN Reason: PAIN - SEVERE Last Admin: 06/23/19 18:42 Dose: 2 mg Nicotine (Nicotine Patch 21 Mg/24 Hr*) 1 patch TRANSDERM DAILY [facility] Last Admin: 06/25/19 12:14 Dose: 1 patch Ondansetron HCl (Zofran Inj*) 4 mg IV Q4H PRN PRN Reason: NAUSEA Last Admin: 06/24/19 13:05 Dose: 4 mg Oxycodone/Acetaminophen (Percocet 5/325 Tab*) 1 tab PO Q4H PRN PRN Reason: PAIN - MODERATE Last Admin: 06/25/19 14:33 Dose: 1 tab Patiromer (Veltassa Powder*) 8.4 gm PO DAILY [facility] Last Admin: 06/25/19 12:16 Dose: 8.4 gm Pharmacy Consult (Vancomycin Per Pharmacy*) 1 note FOLLOW UP .VANC PER PHARMACY [facility]; Protocol Pharmacy Consult (Vancomycin - Dialysis Dosing*) 1 note FOLLOW UP . [facility] Pharmacy Profile Note (Nicotine Patch Removal Note*) 1 note PATCH OFF 2100 [facility] Last Admin: 06/24/19 20:55 Dose: 1 note Sertraline HCl (Zoloft*) 25 mg PO DAILY [facility] Sevelamer Carbonate (Renvela Tab*) 1,600 mg PO TID WITH MEALS [facility] Last Admin: 06/25/19 12:16 Dose: 1,600 mg Witch Evette (Tucks*) 1 pad TOPICAL DAILY [facility] Last Admin: 06/25/19 16:22 Dose: 1 pad Vital Signs: Temp Pulse Resp BP Pulse Ox 98.6 F 75 18 139/83 99 06/25/19 15:50 06/25/19 15:50 06/25/19 15:50 06/25/19 15:50 06/25/19 15:50 Oxygen Devices in Use Now: None Appearance: Mr. Sepulveda is a middle-aged white male who is laying in bed. He is intermittently tearful, but appears to be in no acute distress. He appears older than his stated age. Eyes: No Scleral Icterus, PERRLA Ears/Nose/Mouth/Throat: NL Teeth, Lips, Gums, Clear Oropharnyx, Mucous Membranes Moist Neck: NL Appearance and Movements; NL JVP, Trachea Midline Respiratory: Symmetrical Chest Expansion and Respiratory Effort, Clear to Auscultation Cardiovascular: NL Sounds; No Murmurs; No JVD, RRR, No Edema Abdominal: NL Sounds; No Tenderness; No Distention, No Hepatosplenomegaly Extremities: No Edema, No Clubbing, Cyanosis, - - b/l LE with CDI dressing in place Skin: - - skin with diffuse numerous healing wounds Neurological: Alert and Oriented x 3 Result Diagrams: 06/25/19 05:01 06/25/19 05:01 Microbiology and Other Data: Microbiology 06/16/19 12:40 Nasal Screen MRSA (PCR) - Final Nasal Mrsa Not Detected Assess/Plan/Problems-Billing Assessment: Ms. Sepulveda is a 48 yo M with a PMH of type 2 DM, ESRD on HD who was admitted on 06/16/19 with gangrenous changes to his b/l feet and is s/p L TMA 06/22/2019. - Patient Problems (1) Gangrene of left foot Comment: - s/p left transmetatarsal amputation with Dr. Rondon 06/22/2019 - Toes 3-5, infection since at least February 2019 - Hx of diabetes and abnormal ABIs - s/p revascularization, stenting L SFA - MRI attempted again 06/20 with lorazepam but patient still not able to tolerate - Appreciate ID consult - Continue cefepime, metronidazole, vanco - ortho consulting; thank you for recommendations (2) Gangrene of toe of right foot Comment: -ortho consulting; thank you for recommendations -patent flow to RLE with slow flow to CHALK MOLDING MACHINE OPERATOR, DANIEL -continue daily dry dressings to gangrenous R 5th digit (3) PAD (peripheral artery disease) Comment: - Appreciate consultation from Dr. 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 Will likely need MANJEET.
[2019-06-25] MEDS: Sertraline* 25 MG TAB PO SCH (17:06)
[2019-06-25] MEDS: Nystatin TOP POWDER* 15 GM BTL TOPICAL SCH (21:39)
[2019-06-25] MEDS: Nicotine Patch Removal NOTE PATCH OFF SCH (21:41)
[2019-06-26 05:07] LABS: Hematocrit 29 % (42-52); Hemoglobin 9.5 g/dL (14.0-18.0); Mean Corpuscular HGB Conc 33 g/dL (31-36); Mean Corpuscular Hemoglobin 29 pg (27-31); Mean Corpuscular Volume 86 fL (80-94); Mean Platelet Volume 9.4 fL (7.4-10.4); Platelet Count 568 10^3/uL (150-450); Red Blood Count 3.31 10^6 /uL (4.18-5.48); Red Cell Distribution Width 16 % (10-15); White Blood Count 17.7 10^3/uL (3.5-10.8)
[2019-06-26 05:17] LABS: Calcium 9.1 mg/dL (8.6-10.3); EGFR African American 11.1 (>60); EGFR Non-African American 9.2 (>60); Potassium 4.6 mmol/L (3.5-5.0)
[2019-06-26 05:27] LABS: Polychromasia 1+
[2019-06-26 05:29] LABS: ABS Basophils 0.2 10^3/ul (0-0.2); ABS Eosinophils 0.5 10^3/ul (0-0.6); ABS Lymphocytes 3.2 10^3/ul (1.0-4.8); ABS Monocytes 1.5 10^3/ul (0-0.8); ABS Neutrophils 13.7 10^3/ul (1.5-7.7); ABS Nucleated RBC 0.1 10^3/ul; Eosinophil % 2.7 %; Lymphocyte % 16.8 %; Nucleated Red Blood Cells % 0.3
[2019-06-26] MEDS: Heparin VIAL(*) 5000 UNITS/ML VIAL (FIVE THOUSAND) SUBCUT SCH ×3 (06:12→20:46)
[2019-06-26] MEDS: Insulin LISPRO* 1 UNITS UNIT SUBCUT SCH ×4 (07:55→20:58)
--- NOTE | 2019-06-26 08:16 | PN ---
Progress Note - Progress Note Date of Service: 06/26/19 SOAP: Subjective: POD #4 Left foot TMA, right 5th toe gangrene. Doing ok, pain improving. Denies CP/SOB, f/c, n/v/d. Objective: Vital Signs: Temp Pulse Resp BP Pulse Ox 99.5 F 67 16 127/48 98 06/26/19 07:57 06/26/19 07:57 06/26/19 07:57 06/26/19 07:57 06/26/19 07:57 Gen: A&Ox3, NAD at rest laying in bed LLE: Dressing C/D/I. +f/e at ankle RLE: 5th toe still with gangrene, minimal drainage on dressing. No erythema or edema to foot. Ulcers between toes improving. Mild ttp 5th MT head. Sensation decreased due to neuropathy. Labs: Laboratory Results - last 24 hr 06/25/19 06/25/19 06/25/19 07:33 12:52 17:09 WBC RBC Hgb Hct MCV MCH MCHC RDW Plt Count MPV Neut % (Auto) Lymph % (Auto) [place] % (Auto) Eos % (Auto) Baso % (Auto) Absolute Neuts (auto) Absolute Lymphs (auto) Absolute Monos (auto) Absolute Eos (auto) Absolute Basos (auto) Absolute Nucleated RBC Immature Gran % Neutrophils % Band Neutrophils % Lymphocytes % Monocytes % Eosinophils % Nucleated RBC % Nucleated RBCs/100 WBC Normal RBC Morphology Polychromasia Hypochromasia Anisocytosis Sodium Potassium Chloride Carbon Dioxide Anion Gap BUN Creatinine Est GFR ( Amer) Est GFR (Non-Af Amer) BUN/Creatinine Ratio Glucose POC Glucose (mg/dL) 124 H 158 H 143 H Calcium 06/25/19 06/26/19 06/26/19 21:31 04:47 04:47 WBC 17.7 H RBC 3.31 L Hgb 9.5 L Hct 29 L MCV 86 MCH 29 MCHC 33 RDW 16 H Plt Count 568 H D MPV 9.4 Neut % (Auto) 71.6 Lymph % (Auto) 16.8 [place] % (Auto) 7.7 Eos % (Auto) 2.7 Baso % (Auto) 1.2 Absolute Neuts (auto) 13.7 H Absolute Lymphs (auto) 3.2 Absolute Monos (auto) 1.5 H Absolute Eos (auto) 0.5 Absolute Basos (auto) 0.2 Absolute Nucleated RBC 0.1 Immature Gran % 2.0 Neutrophils % 77.0 Band Neutrophils % 2.0 Lymphocytes % 10.0 Monocytes % 9.0 Eosinophils % 2.0 Nucleated RBC % 0.3 Nucleated RBCs/100 WBC 1.0 H Normal RBC Morphology Not Reportable Polychromasia 1+ Hypochromasia 1+ Anisocytosis 1+ Sodium 132 L Potassium 4.6 Chloride 95 L Carbon Dioxide 24 Anion Gap 13 H BUN 39 H Creatinine 6.52 H Est GFR ( Amer) 11.1 Est GFR (Non-Af Amer) 9.2 BUN/Creatinine Ratio 6.0 L Glucose 96 POC Glucose (mg/dL) 124 H Calcium 9.1 06/26/19 07:54 WBC RBC Hgb Hct MCV MCH MCHC RDW Plt Count MPV Neut % (Auto) Lymph % (Auto) [place] % (Auto) Eos % (Auto) Baso % (Auto) Absolute Neuts (auto) Absolute Lymphs (auto) Absolute Monos (auto) Absolute Eos (auto) Absolute Basos (auto) Absolute Nucleated RBC Immature Gran % Neutrophils % Band Neutrophils % Lymphocytes % Monocytes % Eosinophils % Nucleated RBC % Nucleated RBCs/100 WBC Normal RBC Morphology Polychromasia Hypochromasia Anisocytosis Sodium Potassium Chloride Carbon Dioxide Anion Gap BUN Creatinine Est GFR ( Amer) Est GFR (Non-Af Amer) BUN/Creatinine Ratio Glucose POC Glucose (mg/dL) 122 H Calcium Assessment: POD #4 left foot TMA, right 5th toe gangrene Plan: Pt with persistent leukocytosis, repeat BC pending Right foot with gangrene to 5th toe, unable to tolerate MRI to eval for fluid collection Cont IV abx per ID Will continue to follow
[2019-06-26] MEDS: Sevelamer TAB* 800 MG PO SCH ×3 (08:48→17:26)
[2019-06-26] MEDS: Nicotine PATCH 21 MG/24 HR* PATCH TRANSDERM SCH (08:49)
[2019-06-26] MEDS: oxyCODONE/Acetamin 5/325 MG* TAB PO PRN ×2 (08:49→14:41)
[2019-06-26] MEDS: Aspirin 81 mg CHEW TAB* 81 MG TAB.CHEW PO SCH (08:49)
[2019-06-26] MEDS: Sertraline* 25 MG TAB PO SCH (08:49)
[2019-06-26] MEDS: amLODIPine TAB* 5 MG PO SCH (08:49)
[2019-06-26] MEDS: Clopidogrel TAB* 75 MG PO SCH (08:49)
[2019-06-26] MEDS: Metoprolol Tartrate TAB* 25 MG PO SCH (08:49)
[2019-06-26] MEDS: Patiromer POWDER* 8.4 GM PAK PO SCH (08:53)
[2019-06-26] MEDS: Calcitriol CAP* 0.25 MCG PO SCH ×2 (08:53→20:45)
[2019-06-26] MEDS: Nystatin TOP POWDER* 15 GM BTL TOPICAL SCH ×2 (09:30→20:45)
[2019-06-26] MEDS: Acetaminophen TAB* 325 MG PO PRN (11:58)
[2019-06-26] MEDS: Witch Hazel PAD* JAR TOPICAL SCH (12:00)
--- NOTE | 2019-06-26 13:15 | PN ---
Subjective Date of Service: 06/26/19 Interval History: Mr. Sepulveda states he is tired today. He has a contact dermatitis in the perineal area that he states is painful and bothersome. He had a BM today and has been up walking. He has no other complaints today. Family History: Unchanged from Admission Social History: Unchanged from Admission Past Medical History: Unchanged from Admission Objective Active Medications: Acetaminophen (Tylenol Tab*) 650 mg PO Q4H PRN PRN Reason: PAIN - MILD Last Admin: 06/26/19 11:58 Dose: 650 mg Amlodipine Besylate (Norvasc Tab*) 10 mg PO DAILY [facility] Last Admin: 06/26/19 08:49 Dose: 10 mg Aspirin (Aspirin 81 Mg Chew Tab*) 81 mg PO DAILY [facility] Last Admin: 06/26/19 08:49 Dose: 81 mg Calcitriol (Rocaltrol Cap*) 0.75 mcg PO BID [facility] Last Admin: 06/26/19 08:53 Dose: 0.75 mcg Clopidogrel Bisulfate (Plavix Tab*) 75 mg PO DAILY [facility] Last Admin: 06/26/19 08:49 Dose: 75 mg Dextrose (D50w Syringe 50 Ml*) 12.5 gm IV PUSH .FOR FS < 60 - SS PRN PRN Reason: FS < 60 Heparin Sodium (Porcine) (Heparin Vial(*)) 5,000 units SUBCUT Q8HR [facility] Last Admin: 06/26/19 06:12 Dose: 5,000 units Cefepime HCl 0.5 gm/ Sodium (Chloride) 50 mls @ 100 mls/hr IVPB MoWeFr@1600 [facility] Last Admin: 06/25/19 16:52 Dose: 100 mls/hr Insulin Human Lispro (Humalog*) 0 units SUBCUT ACHS [facility]; Protocol Last Admin: 06/26/19 11:59 Dose: 2 units Metoprolol Tartrate (Lopressor Tab*) 25 mg PO DAILY [facility] Last Admin: 06/26/19 08:49 Dose: 25 mg Miscellaneous (Ativan Pyxis Benavides) 1 ea N/A .PYXIS BENAVIDES PRN PRN Reason: PER PROTOCOL Morphine Sulfate (Morphine Inj (Syringe))*) 2 mg IV Q4H PRN PRN Reason: PAIN - SEVERE Last Admin: 06/23/19 18:42 Dose: 2 mg Nicotine (Nicotine Patch 21 Mg/24 Hr*) 1 patch TRANSDERM DAILY [facility] Last Admin: 06/26/19 08:49 Dose: 1 patch Nystatin (Nystatin Top Powder*) 1 applic TOPICAL BID [facility] Last Admin: 06/26/19 09:30 Dose: 1 applic Ondansetron HCl (Zofran Inj*) 4 mg IV Q4H PRN PRN Reason: NAUSEA Last Admin: 06/24/19 13:05 Dose: 4 mg Oxycodone/Acetaminophen (Percocet 5/325 Tab*) 1 tab PO Q4H PRN PRN Reason: PAIN - MODERATE Last Admin: 06/26/19 08:49 Dose: 1 tab Patiromer (Veltassa Powder*) 8.4 gm PO DAILY [facility] Last Admin: 06/26/19 08:53 Dose: 8.4 gm Pharmacy Consult (Vancomycin Per Pharmacy*) 1 note FOLLOW UP .VANC PER PHARMACY [facility]; Protocol Pharmacy Consult (Vancomycin - Dialysis Dosing*) 1 note FOLLOW UP . [facility] Pharmacy Profile Note (Nicotine Patch Removal Note*) 1 note PATCH OFF 2100 [facility] Last Admin: 06/25/19 21:41 Dose: 1 note Sertraline HCl (Zoloft*) 25 mg PO DAILY [facility] Last Admin: 06/26/19 08:49 Dose: 25 mg Sevelamer Carbonate (Renvela Tab*) 1,600 mg PO TID WITH MEALS [facility] Last Admin: 06/26/19 11:58 Dose: 1,600 mg Witch Evette (Tucks*) 1 pad TOPICAL DAILY [facility] Last Admin: 06/26/19 12:00 Dose: 1 pad Vital Signs: Temp Pulse Resp BP Pulse Ox 97.7 F 58 20 104/58 100 06/26/19 11:35 06/26/19 11:35 06/26/19 11:35 06/26/19 11:35 06/26/19 11:35 Oxygen Devices in Use Now: None Appearance: Mr. Sepulveda is a middle-aged black male who appears chronically ill and older than stated age. He is sitting up eating lunch and appears to be in no acute distress. Eyes: No Scleral Icterus, PERRLA Ears/Nose/Mouth/Throat: NL Teeth, Lips, Gums, Clear Oropharnyx, Mucous Membranes Moist Neck: NL Appearance and Movements; NL JVP, Trachea Midline Respiratory: Symmetrical Chest Expansion and Respiratory Effort, Clear to Auscultation Cardiovascular: NL Sounds; No Murmurs; No JVD, RRR, No Edema Abdominal: NL Sounds; No Tenderness; No Distention, No Hepatosplenomegaly Extremities: No Edema, No Clubbing, Cyanosis, - - b/l LE with CDI dressing in place Skin: - - diffuse areas of excoriation and wounds in various stages of healing; perineum erythematous, mildly edematous Neurological: Alert and Oriented x 3 Result Diagrams: 06/26/19 04:47 06/26/19 04:47 Microbiology and Other Data: Microbiology 06/16/19 12:40 Nasal Screen MRSA (PCR) - Final Nasal Mrsa Not Detected Assess/Plan/Problems-Billing Assessment: Ms. Sepulveda is a 48 yo M with a PMH of type 2 DM, ESRD on HD who was admitted on 06/16/19 with gangrenous changes to his b/l feet and is s/p L TMA 06/22/2019. - Patient Problems (1) Gangrene of left foot Comment: - s/p left transmetatarsal amputation with Dr. Rondon 06/22/2019 - Toes 3-5, infection since at least February 2019 - Hx of diabetes and abnormal ABIs - s/p revascularization, stenting L SFA - MRI attempted again 06/20 with lorazepam but patient still not able to tolerate - Appreciate ID consult - Continue cefepime, metronidazole, vanco - ortho consulting; thank you for recommendations (2) Gangrene of toe of right foot Comment: -ortho consulting; thank you for recommendations -patent flow to RLE with slow flow to PROCESS CONTROL PROGRAMMER, DANIEL -continue daily dry dressings to gangrenous R 5th digit (3) PAD (peripheral artery disease) Comment: - Appreciate consultation from Dr. Phillips; pelvic and bilateral lower extremity arteriography performed 06/17 with stent placed in LLE - RLE was noted to be patent - Continue aspirin, Plavix (4) Contact dermatitis Comment: -perineal area -continue barrier cream (5) ESRD (end stage renal disease) Comment: - Continue HD MWF - Continue calcitriol, Renvela, patiromer (6) HTN (hypertension) Comment: -SBP 100-120's today - Continue amlodipine, metoprolol (7) Diabetes Comment: - A1c 7.3 -BS 120-140s today - Had been off home meds - Continue Lispro SS (8) Systolic CHF, chronic Comment: - Asypmtomatic - EF 40-45% - Severe tricuspid regurg - Likely mod-severe pulmonary hypertension based on previous echo from 2016, unable to visualize on current echo - Continue metoprolol (9) Anemia Comment: -stable - AOCD secondary to ESRD (10) Hyperbilirubinemia Comment: - Chronic, documented history of alcoholic cirrhosis - Liver US with hepatomegaly and small amount of ascites - Will need outpatient follow up with GI (11) DVT prophylaxis Comment: - Heparin SQ (12) Full code status Comment: Status and Disposition: Inpatient. Will likely need MANJEET.
[2019-06-26] MEDS: Nicotine Patch Removal NOTE PATCH OFF SCH (21:00)
[2019-06-27] MEDS: Heparin VIAL(*) 5000 UNITS/ML VIAL (FIVE THOUSAND) SUBCUT SCH ×3 (06:05→21:15)
[2019-06-27] MEDS: Insulin LISPRO* 1 UNITS UNIT SUBCUT SCH ×4 (07:29→21:20)
[2019-06-27] MEDS ORDERED: ROPIVACAINE 5 MG/ML 30 ML BTL (0.5%) ONE (07:46)
[2019-06-27] MEDS: Sertraline* 25 MG TAB PO SCH (07:51)
[2019-06-27] MEDS: Aspirin 81 mg CHEW TAB* 81 MG TAB.CHEW PO SCH (07:51)
[2019-06-27] MEDS: Patiromer POWDER* 8.4 GM PAK PO SCH (07:51)
[2019-06-27] MEDS: amLODIPine TAB* 5 MG PO SCH (07:51)
[2019-06-27] MEDS: Sevelamer TAB* 800 MG PO SCH ×3 (07:52→17:10)
[2019-06-27] MEDS ORDERED: Bupivacaine 0.5%* 50 ML MDV VIAL ONE (07:52)
[2019-06-27] MEDS: Metoprolol Tartrate TAB* 25 MG PO SCH (07:52)
[2019-06-27] MEDS: Witch Hazel PAD* JAR TOPICAL SCH (07:52)
[2019-06-27] MEDS: Nystatin TOP POWDER* 15 GM BTL TOPICAL SCH ×2 (07:52→21:14)
[2019-06-27] MEDS: Calcitriol CAP* 0.25 MCG PO SCH ×2 (07:56→20:23)
[2019-06-27] MEDS ORDERED: Midazolam* 1 MG/ML 2 ML VIAL (2 MG) ONE (07:59)
[2019-06-27] MEDS ORDERED: Propofol* 10 MG/ML 20 ML BTL ONE (08:00)
[2019-06-27] MEDS: Clopidogrel TAB* 75 MG PO SCH (08:07)
[2019-06-27] MEDS ORDERED: Lidocaine 1% INJ* 10 MG/ML 30 ML SDV ONE (08:31)
[2019-06-27] MEDS ORDERED: fentaNYL* 50 MCG/ML 2 ML VIAL (100 MCG VIAL) ONE (08:48)
[2019-06-27] MEDS ORDERED: Ondansetron INJ* 2 MG/ML VIAL ONE (08:54)
[2019-06-27] MEDS ORDERED: Naloxone* 0.4 MG/ML 1 ML VIAL IV PRN (09:13)
[2019-06-27] MEDS ORDERED: fentaNYL* 50 MCG/ML 2 ML VIAL (100 MCG VIAL) IV PRN (09:34)
[2019-06-27] MEDS ORDERED: Levofloxacin 750 MG IVPREMIX(* 750 MG/150 ML BAG IVPB ONE (10:30)
--- NOTE | 2019-06-27 11:51 | PN ---
Subjective Date of Service: 06/27/19 Interval History: Mr. Sepulveda states he is tired. He is seen in his room post-operatively. He continues to have L heel pain, but denies R or L amputation site pain. He reports decreased appetite and mild nausea for 2-3 days, but denies abdominal pain, vomiting, diarrhea. He denies cough, fever, chills/sweats. No other complaints today. Family History: Unchanged from Admission Social History: Unchanged from Admission Past Medical History: Unchanged from Admission Objective Active Medications: Acetaminophen (Tylenol Tab*) 650 mg PO Q4H PRN PRN Reason: PAIN - MILD Last Admin: 06/26/19 11:58 Dose: 650 mg Amlodipine Besylate (Norvasc Tab*) 10 mg PO DAILY [facility] Last Admin: 06/27/19 07:51 Dose: 10 mg Aspirin (Aspirin 81 Mg Chew Tab*) 81 mg PO DAILY [facility] Last Admin: 06/27/19 07:51 Dose: 81 mg Calcitriol (Rocaltrol Cap*) 0.75 mcg PO BID [facility] Last Admin: 06/27/19 07:56 Dose: 0.75 mcg Clopidogrel Bisulfate (Plavix Tab*) 75 mg PO DAILY [facility] Last Admin: 06/27/19 08:07 Dose: Not Given Dextrose (D50w Syringe 50 Ml*) 12.5 gm IV PUSH .FOR FS < 60 - SS PRN PRN Reason: FS < 60 Heparin Sodium (Porcine) (Heparin Vial(*)) 5,000 units SUBCUT Q8HR [facility] Last Admin: 06/27/19 06:05 Dose: Not Given Cefepime HCl 0.5 gm/ Sodium (Chloride) 50 mls @ 100 mls/hr IVPB MoWeFr@1600 [facility] Last Admin: 06/25/19 16:52 Dose: 100 mls/hr Levofloxacin/Dextrose (Levaquin 500 Mg Ivpremix(*)) 500 mg in 100 mls @ 100 mls /hr IVPB Q48H [facility]; Protocol Levofloxacin/Dextrose (Levaquin 750 Mg Ivpremix(*)) 750 mg in 150 mls @ 100 mls /hr IVPB ONCE ONE; Protocol Stop: 06/27/19 11:59 Last Admin: 06/27/19 11:34 Dose: 100 mls/hr Insulin Human Lispro (Humalog*) 0 units SUBCUT ACHS [facility]; Protocol Last Admin: 06/27/19 11:41 Dose: Not Given Metoprolol Tartrate (Lopressor Tab*) 25 mg PO DAILY [facility] Last Admin: 06/27/19 07:52 Dose: 25 mg Morphine Sulfate (Morphine Inj (Syringe))*) 2 mg IV Q4H PRN PRN Reason: PAIN - SEVERE Last Admin: 06/23/19 18:42 Dose: 2 mg Nicotine (Nicotine Patch 21 Mg/24 Hr*) 1 patch TRANSDERM DAILY [facility] Last Admin: 06/26/19 08:49 Dose: 1 patch Nystatin (Nystatin Top Powder*) 1 applic TOPICAL BID [facility] Last Admin: 06/27/19 07:52 Dose: 1 applic Oxycodone/Acetaminophen (Percocet 5/325 Tab*) 1 tab PO Q4H PRN PRN Reason: PAIN - MODERATE Last Admin: 06/26/19 14:41 Dose: 1 tab Patiromer (Veltassa Powder*) 8.4 gm PO DAILY [facility] Last Admin: 06/27/19 07:51 Dose: 8.4 gm Pharmacy Consult (Vancomycin Per Pharmacy*) 1 note FOLLOW UP .VANC PER PHARMACY [facility]; Protocol Pharmacy Consult (Vancomycin - Dialysis Dosing*) 1 note FOLLOW UP . [facility] Pharmacy Consult (Vancomycin Random Level*) 1 note FOLLOW UP MoWeFr@0600 [facility] Pharmacy Profile Note (Nicotine Patch Removal Note*) 1 note PATCH OFF 2100 [facility] Last Admin: 06/26/19 21:00 Dose: 1 note Sertraline HCl (Zoloft*) 25 mg PO DAILY [facility] Last Admin: 06/27/19 07:51 Dose: 25 mg Sevelamer Carbonate (Renvela Tab*) 1,600 mg PO TID WITH MEALS [facility] Last Admin: 06/27/19 07:52 Dose: 1,600 mg Witch Evette (Tucks*) 1 pad TOPICAL DAILY [facility] Last Admin: 06/27/19 07:52 Dose: 1 pad Vital Signs: Temp Pulse Resp BP Pulse Ox 97.4 F 66 16 128/75 91 06/27/19 10:58 06/27/19 10:58 06/27/19 10:58 06/27/19 10:58 06/27/19 10:58 Oxygen Devices in Use Now: None Appearance: Mr. Sepulveda is an obese 48M who is chronically ill-appearing; he appears to be in acute distress and is somewhat groggy. Eyes: PERRLA, - - b/l scleral icterus Ears/Nose/Mouth/Throat: NL Teeth, Lips, Gums, Clear Oropharnyx, Mucous Membranes Moist Neck: NL Appearance and Movements; NL JVP, Trachea Midline Respiratory: Symmetrical Chest Expansion and Respiratory Effort, Clear to Auscultation Cardiovascular: NL Sounds; No Murmurs; No JVD, RRR, No Edema Abdominal: No Hepatosplenomegaly, - - mildly distended abdomen; BS in all quadrants; mildly tender to palpation Extremities: No Edema, No Clubbing, Cyanosis, - - b/l LE with CDI dressing in place Skin: - - diffuse wounds/abrasions in various stages of healing thoughout skin Neurological: Alert and Oriented x 3 Result Diagrams: 06/26/19 04:47 06/26/19 04:47 Microbiology and Other Data: Microbiology 06/16/19 12:40 Nasal Screen MRSA (PCR) - Final Nasal Mrsa Not Detected Assess/Plan/Problems-Billing Assessment: Ms. Sepulveda is a 48 yo M with a PMH of type 2 DM, ESRD on HD who was admitted on 06/16/19 with gangrenous changes to his b/l feet and is s/p L TMA 06/22/2019. - Patient Problems (1) Gangrene of left foot Comment: - s/p left transmetatarsal amputation with Dr. Rondon 06/22/2019 - Toes 3-5, infection since at least February 2019 - Hx of diabetes and abnormal ABIs - s/p revascularization, stenting L SFA - MRI attempted again 06/20 with lorazepam but patient still not able to tolerate - Appreciate ID consult - Continue cefepime, vanco -culture growing citrobacter freundii, stentrophomas maltophilia; sensitive to cefepime, levaquin -due to no improvement in CRP, leukocytosis, will add on 1 dose levofloxacin today, as cefepime likely is not covering stentrophomas; may d/c cefepime, vanco tomorrow -EKG prior to administering levofloxacin shows rate 61, QT 517 - ortho consulting; thank you for recommendations (2) Gangrene of toe of right foot Comment: -ortho consulting; thank you for recommendations -patent flow to RLE with slow flow to CERTIFIED LACTATION EDUCATOR, DANIEL -POD0 today for R foot surgical intervention -see above discussion re: antibiotics; 1 dose levaquin at this time (3) PAD (peripheral artery disease) Comment: - Appreciate consultation from Dr. Phillips; pelvic and bilateral lower extremity arteriography performed 06/17 with stent placed in LLE - RLE was noted to be patent - Continue aspirin, Plavix (4) Contact dermatitis Comment: -perineal area -continue barrier cream (5) ESRD (end stage renal disease) Comment: - Continue HD MWF - Continue calcitriol, Renvela, patiromer (6) HTN (hypertension) Comment: -SBP 100-150's today - Continue amlodipine, metoprolol (7) Diabetes Comment: - A1c 7.3 -BS 110-120s today - Had been off home meds - Continue Lispro SS (8) Systolic CHF, chronic Comment: - Asypmtomatic - EF 40-45% - Severe tricuspid regurg - Likely mod-severe pulmonary hypertension based on previous echo from 2016, unable to visualize on current echo - Continue metoprolol (9) Anemia Comment: -stable - AOCD secondary to ESRD (10) Hyperbilirubinemia Comment: - Chronic, documented history of alcoholic cirrhosis - Liver US with hepatomegaly and small amount of ascites - Will need outpatient follow up with GI (11) DVT prophylaxis Comment: - Heparin SQ (12) Full code status Comment: Status and Disposition: Inpatient. Will likely need MANJEET.
[2019-06-27] MEDS: oxyCODONE/Acetamin 5/325 MG* TAB PO PRN ×2 (13:12→20:22)
[2019-06-27] MEDS: Nicotine PATCH 21 MG/24 HR* PATCH TRANSDERM SCH (13:14)
--- NOTE | 2019-06-27 20:10 | OP ---
DATE OF OPERATION: 06/27/19 - ROOM #336 DATE OF : 70 ATTENDING SURGEON: Jacek Rondon MD ASSISTED BY: Sivan Carlin PA-C PRE-OP DIAGNOSIS: Necrotic right forefoot. POST-OP DIAGNOSIS: Necrotic right forefoot. OPERATIVE PROCEDURE: Right transmetatarsal amputation. DESCRIPTION OF PROCEDURE: The patient was taken to the operating room where an ankle block was performed with an ankle Esmarch. I made transverse fish-mouth incision over the right forefoot just behind the MTP joints. He had longer plantar than dorsal flap. We reflected proximally the dorsal flap to allow visualization the metatarsus. We cut these twice with a microsagittal saw, the second time shortening them a bit more to give us plenty of skin coverage. The dorsal distal skin was somewhat compromised. After cutting through the metatarsal bridge, we flexed through the osteotomy and divided the plantar flap. We dropped the tourniquet, irrigated thoroughly, and sent cultures. There was some bleeding, I would not say robust. We closed with 2-0 Monocryl sutures and 2-0 Prolene for the skin, interrupted sutures. Surgery went well. We wrapped the foot with a sterile compressive bandage. [id number]/[facility] #: [id number] OLIVA
[2019-06-27] MEDS: Nicotine Patch Removal NOTE PATCH OFF SCH (21:16)
[2019-06-28] MEDS: oxyCODONE/Acetamin 5/325 MG* TAB PO PRN ×4 (00:22→21:18)
[2019-06-28] MEDS: Heparin VIAL(*) 5000 UNITS/ML VIAL (FIVE THOUSAND) SUBCUT SCH ×3 (05:15→21:19)
[2019-06-28] MEDS ORDERED: Vancomycin Random Level* NOTE FOLLOW UP SCH (06:00)
[2019-06-28 06:07] LABS: Hematocrit 28 % (42-52); Hemoglobin 9.3 g/dL (14.0-18.0); Mean Corpuscular HGB Conc 34 g/dL (31-36); Mean Corpuscular Hemoglobin 29 pg (27-31); Mean Corpuscular Volume 87 fL (80-94); Mean Platelet Volume 9.1 fL (7.4-10.4); Platelet Count 636 10^3/uL (150-450); Red Blood Count 3.18 10^6 /uL (4.18-5.48); Red Cell Distribution Width 15 % (10-15); White Blood Count 16.8 10^3/uL (3.5-10.8)
[2019-06-28 06:24] LABS: BUN/Creatinine Ratio 6.9 (8-20); Calcium 9.1 mg/dL (8.6-10.3); EGFR African American 7.8 (>60); EGFR Non-African American 6.5 (>60)
[2019-06-28 06:25] LABS: Potassium 5.3 mmol/L (3.5-5.0)
[2019-06-28 07:09] LABS: Polychromasia 1+
[2019-06-28 07:10] LABS: ABS Basophils 0.2 10^3/ul (0-0.2); ABS Eosinophils 0.3 10^3/ul (0-0.6); ABS Lymphocytes 4.5 10^3/ul (1.0-4.8); ABS Monocytes 0.9 10^3/ul (0-0.8); ABS Neutrophils 10.8 10^3/ul (1.5-7.7); ABS Nucleated RBC 0.1 10^3/ul; Eosinophil % 2.1 %; Lymphocyte % 26.9 %; Nucleated Red Blood Cells % 0.3
[2019-06-28] MEDS: Aspirin 81 mg CHEW TAB* 81 MG TAB.CHEW PO SCH (07:28)
[2019-06-28] MEDS: Clopidogrel TAB* 75 MG PO SCH (07:28)
[2019-06-28] MEDS: Sevelamer TAB* 800 MG PO SCH ×3 (07:28→17:30)
[2019-06-28] MEDS: Calcitriol CAP* 0.25 MCG PO SCH ×2 (07:29→21:17)
[2019-06-28] MEDS: Metoprolol Tartrate TAB* 25 MG PO SCH (07:29)
[2019-06-28] MEDS: amLODIPine TAB* 5 MG PO SCH (07:29)
[2019-06-28] MEDS: Sertraline* 25 MG TAB PO SCH (07:29)
[2019-06-28] MEDS: Nicotine PATCH 21 MG/24 HR* PATCH TRANSDERM SCH (07:30)
[2019-06-28] MEDS: Morphine INJ* 2 MG/ML 1 ML SYRINGE (TWO MG - NEW SYRINGE VERSION) IV PRN (07:33)
[2019-06-28] MEDS: Insulin LISPRO* 1 UNITS UNIT SUBCUT SCH ×4 (07:37→21:21)
[2019-06-28] MEDS: Patiromer POWDER* 8.4 GM PAK PO SCH (07:50)
[2019-06-28] MEDS: Witch Hazel PAD* JAR TOPICAL SCH (07:50)
[2019-06-28] MEDS: Nystatin TOP POWDER* 15 GM BTL TOPICAL SCH ×2 (07:50→21:22)
--- NOTE | 2019-06-28 08:53 | PN ---
Progress Note - Progress Note Date of Service: 06/28/19 SOAP: Subjective: CC: Bilateral foot necrotic wounds HPI: Mr. Sepulveda is a 48 yo male with PMH significant for ESRD on hemodialysis , DM2, and HTN; who presented to the hospital for bilateral foot wounds. S/P left TMA and right TMA. Denies fever, chills, neck/back pain, ABD pain, nausea, vomiting, or diarrhea. Improving pain in feet. He states that he doesn't urinate in the setting of HD. Objective: Vital Signs 06/28/19 06/28/19 06/28/19 07:00 07:29 07:33 Temperature 97.4 F Pulse Rate 59 Respiratory 20 16 18 Rate Blood Pressure 135/56 (mmHg) O2 Sat by Pulse 100 Oximetry Physical Exam: General: NAD, sitting up on the side of the bed Neurological: Alert and Oriented HEENT: Moist MM Cardiovascular: Heart rate regular Respirator: Lung sounds clear Abdominal: Bowel sounds present; ABD soft, non tender and non distended MSK: POTTER. No tenderness with palpation of the neck, back or spine Skin: Diffuse scabs over the body due to "picking". Bilateral foot DSG clean, dry and intact Laboratory Results - last 24 hr 06/27/19 06/28/19 06/28/19 21:14 05:49 05:49 WBC 16.8 H RBC 3.18 L Hgb 9.3 L Hct 28 L MCV 87 MCH 29 MCHC 34 RDW 15 Plt Count 636 H D MPV 9.1 Neut % (Auto) 64.2 Lymph % (Auto) 26.9 Will % (Auto) 5.6 Eos % (Auto) 2.1 Baso % (Auto) 1.2 Absolute Neuts (auto) 10.8 H Absolute Lymphs (auto) 4.5 Absolute Monos (auto) 0.9 H Absolute Eos (auto) 0.3 Absolute Basos (auto) 0.2 Absolute Nucleated RBC 0.1 Immature Gran % 2.0 Neutrophils % 65.0 Lymphocytes % 24.0 Reactive Lymphs % 1.0 Monocytes % 6.0 Eosinophils % 2.0 Metamyelocytes % 1.0 Myelocytes % 1.0 Nucleated RBC % 0.3 Normal RBC Morphology Not Reportable Polychromasia 1+ Anisocytosis 1+ Sodium 130 L Potassium 5.3 H Chloride 92 L Carbon Dioxide 23 Anion Gap 15 H BUN 61 H Creatinine 8.80 H Est GFR ( Amer) 7.8 Est GFR (Non-Af Amer) 6.5 BUN/Creatinine Ratio 6.9 L Glucose 96 POC Glucose (mg/dL) 133 H Calcium 9.1 Random Vancomycin 23.0 Microbiology 06/25/19 19:10 Aerobic Blood Culture - Preliminary Blood Venous No Growth Day 2 Anaerobic Blood Culture - Preliminary No Growth Day 2 06/25/19 19:10 Aerobic Blood Culture - Preliminary Blood Venous No Growth Day 2 Anaerobic Blood Culture - Preliminary No Growth Day 2 06/27/19 11:30 Gram Stain - Final Foot Right 06/22/19 08:14 Anaerobic Culture - Final Wound - Left Gram Stain - Final Wound Culture - Final Citrobacter Freundii Stenotrophomas Maltophilia 06/20/19 21:57 Aerobic Blood Culture - Final Blood Venous No Growth Day 5 Anaerobic Blood Culture - Final No Growth Day 5 06/20/19 19:45 Aerobic Blood Culture - Final Blood Venous No Growth Day 5 Anaerobic Blood Culture - Final No Growth Day 5 06/16/19 12:40 Nasal Screen MRSA (PCR) - Final Nasal Mrsa Not Detected Assessment: 1. Bilateral foot gangrene with suspect underlying chronic osteomyelitis. Plain film xrays with no signs of osteomyelitis. Unable to tolerate MRI. S/P revascularization of the left LE with Dr. Phillips. In setting of chronic wounds, suspect this represents chronic osteomyelitis. Left foot s/p TMA, POD #6. Wound cultures from the OR on the left foot citrobacter and stenotrophomas (suspect this is not a pathogen). Right foot s/p TMA, POD #1. Cultures pending from surgery. Surgical pathology pending. Afebrile since 06/21. Persistent leukocytosis but now trending down. CRP elevated. 2. Persistent leukocytosis. Afebrile. Blood cultures with no growth to date. CRP elevated. Now improving. 3. DM2. 4. ESRD, on hemodialysis. Plan: Discontinue Vanco and Levaquin. Continue Cefepime (renal/HD dosing) after HD. He will need a PICC vs midline vs infusion via HD fistula for extended course of ABX (will need to discuss with nephrology). Day . Weekly labs while on IV ABX: CBC, CMP, and CRP. Followup with ID outpatient in 1-2 weeks (Telemed ok) . 25 minutes floor time: > 50% spent with the patient discussing long course of IV ABX and when to call the office (rash, diarrhea, or fevers).
--- NOTE | 2019-06-28 10:08 | PN ---
Progress Note - Progress Note Date of Service: 06/28/19 SOAP: Subjective: POD #5 Left foot TMA, POD #1 right foot TMA. Doing ok, pain improving. Denies CP /SOB, f/c, n/v/d. Objective: Gen: A&Ox3, NAD LLE: Dressing C/D/I. +f/e at ankle. Calf soft and non tender RLE: Dressing is c/d/i. +df/pf at ankle. Calf soft and non tender Vital Signs Temp 97.4 F 06/28/19 07:29 Pulse 59 06/28/19 07:29 Resp 20 06/28/19 09:40 BP 135/56 06/28/19 07:29 Pulse Ox 100 06/28/19 07:29 Intake & Output 06/27/19 06/28/19 06/28/19 18:59 06:59 18:59 Intake Total 340 550 Output Total 0 0 Balance 340 550 Intake: IV Fluids 100 Normal Saline 0.9% 100 Oral 240 550 Output: Urine 0 0 Other: # Bowel Movements 1 Estimated Stool Amount Large Assessment: POD #5 left foot TMA, POD #1 Right foot TMA Plan: Pt with persistent leukocytosis, slightly improved today Cont IV abx per ID Will continue to follow
[2019-06-28] MEDS ORDERED: EPOETIN ALFA-EPBX * 3,000 UNIT/ML VIAL IV ONE (10:15)
[2019-06-28] MEDS ORDERED: Epoetin Alfa (NF) 3,000 UNITS/ML VIAL IV ONE (10:15)
[2019-06-28] MEDS ORDERED: EPOETIN ALFA-EPBX * 2,000 UNIT/ML VIAL SUBCUT ONE (11:00)
[2019-06-28] MEDS ORDERED: Cyclobenzaprine TAB* 10 MG PO PRN (12:17)
--- NOTE | 2019-06-28 13:38 | PN ---
Subjective Date of Service: 06/28/19 Interval History: Mr. Sepulveda states that he is tired. He has R foot pain rated at 3/10. He has been up and transferred, but no ambulation. He has had HD today. No other complaints today. Family History: Unchanged from Admission Social History: Unchanged from Admission Past Medical History: Unchanged from Admission Objective Active Medications: Acetaminophen (Tylenol Tab*) 650 mg PO Q4H PRN PRN Reason: PAIN - MILD Last Admin: 06/26/19 11:58 Dose: 650 mg Amlodipine Besylate (Norvasc Tab*) 10 mg PO DAILY [facility] Last Admin: 06/28/19 07:29 Dose: 10 mg Aspirin (Aspirin 81 Mg Chew Tab*) 81 mg PO DAILY [facility] Last Admin: 06/28/19 07:28 Dose: 81 mg Calcitriol (Rocaltrol Cap*) 0.75 mcg PO BID [facility] Last Admin: 06/28/19 07:29 Dose: 0.75 mcg Clopidogrel Bisulfate (Plavix Tab*) 75 mg PO DAILY [facility] Last Admin: 06/28/19 07:28 Dose: 75 mg Cyclobenzaprine HCl (Flexeril Tab*) 5 mg PO BID PRN PRN Reason: muscle spasm Last Admin: 06/28/19 12:34 Dose: 5 mg Dextrose (D50w Syringe 50 Ml*) 12.5 gm IV PUSH .FOR FS < 60 - SS PRN PRN Reason: FS < 60 Heparin Sodium (Porcine) (Heparin Vial(*)) 5,000 units SUBCUT Q8HR [facility] Last Admin: 06/28/19 12:35 Dose: 5,000 units Cefepime HCl 1.5 gm/ Sodium (Chloride) 100 mls @ 200 mls/hr IVPB MoWeFr@1600 [facility] Insulin Human Lispro (Humalog*) 0 units SUBCUT ACHS [facility]; Protocol Last Admin: 06/28/19 11:58 Dose: Not Given Metoprolol Tartrate (Lopressor Tab*) 25 mg PO DAILY [facility] Last Admin: 06/28/19 07:29 Dose: 25 mg Morphine Sulfate (Morphine Inj (Syringe))*) 2 mg IV Q4H PRN PRN Reason: PAIN - SEVERE Last Admin: 06/28/19 07:33 Dose: 2 mg Nicotine (Nicotine Patch 21 Mg/24 Hr*) 1 patch TRANSDERM DAILY [facility] Last Admin: 06/28/19 07:30 Dose: 1 patch Nystatin (Nystatin Top Powder*) 1 applic TOPICAL BID [facility] Last Admin: 06/28/19 07:50 Dose: Not Given Oxycodone/Acetaminophen (Percocet 5/325 Tab*) 1 tab PO Q4H PRN PRN Reason: PAIN - MODERATE Last Admin: 06/28/19 09:40 Dose: 1 tab Patiromer (Veltassa Powder*) 8.4 gm PO DAILY [facility] Last Admin: 06/28/19 07:50 Dose: Not Given Pharmacy Profile Note (Nicotine Patch Removal Note*) 1 note PATCH OFF 2099 [facility] Last Admin: 06/27/19 21:16 Dose: 1 note Sertraline HCl (Zoloft*) 25 mg PO DAILY [facility] Last Admin: 06/28/19 07:29 Dose: 25 mg Sevelamer Carbonate (Renvela Tab*) 1,600 mg PO TID WITH MEALS [facility] Last Admin: 06/28/19 12:34 Dose: 1,600 mg Witch Evette (Tucks*) 1 pad TOPICAL DAILY [facility] Last Admin: 06/28/19 07:50 Dose: Not Given Vital Signs: Temp Pulse Resp BP Pulse Ox 97.1 F 57 16 142/66 100 06/28/19 11:56 06/28/19 11:56 06/28/19 12:34 06/28/19 11:56 06/28/19 11:56 Oxygen Devices in Use Now: None Appearance: Mr. Sepulveda is obese 78M who is sitting up in bed; appears chronically ill, older than stated age. Eyes: PERRLA, - - scleral icterus Ears/Nose/Mouth/Throat: NL Teeth, Lips, Gums, Clear Oropharnyx, Mucous Membranes Moist Neck: NL Appearance and Movements; NL JVP, Trachea Midline Respiratory: Symmetrical Chest Expansion and Respiratory Effort, Clear to Auscultation Cardiovascular: NL Sounds; No Murmurs; No JVD, RRR, No Edema Abdominal: NL Sounds; No Tenderness; No Distention, No Hepatosplenomegaly Extremities: No Edema, No Clubbing, Cyanosis, - - b/l LE with CDI dressing in place Neurological: Alert and Oriented x 3 Result Diagrams: 06/28/19 05:49 06/28/19 05:49 Microbiology and Other Data: Microbiology 06/16/19 12:40 Nasal Screen MRSA (PCR) - Final Nasal Mrsa Not Detected Assess/Plan/Problems-Billing Assessment: Ms. Sepulveda is a 48 yo M with a PMH of type 2 DM, ESRD on HD who was admitted on 06/16/19 with gangrenous changes to his b/l feet and is s/p L TMA 06/22/2019. - Patient Problems (1) Gangrene of left foot Comment: - s/p L TMA 06/22/2019, R TMA 06/27/[address] Rondon - L toes 3-5, infection since at least February 2019 - Hx of diabetes and abnormal ABIs - s/p revascularization, stenting L SFA - MRI attempted 06/20 with lorazepam but patient still not able to tolerate - Appreciate ID consult -culture growing citrobacter freundii, stentrophomas maltophilia -ID recommends continue cefepime only - ortho consulting; thank you for recommendations (2) Gangrene of toe of right foot Comment: -ortho consulting; thank you for recommendations -patent flow to RLE with slow flow to FAMILY AND CONSUMER SCIENCES PROFESSOR, DANIEL -POD1 R TMA -continue cefepime (3) PAD (peripheral artery disease) Comment: - Appreciate consultation from Dr. Phillips; pelvic and bilateral lower extremity arteriography performed 06/17 with stent placed in LLE - RLE was noted to be patent - Continue aspirin, Plavix (4) ESRD (end stage renal disease) Comment: - Continue HD MWF - Continue calcitriol, Renvela, patiromer (5) Contact dermatitis Comment: -perineal area -continue barrier cream (6) HTN (hypertension) Comment: -SBP 110-150's today - Continue amlodipine, metoprolol (7) Diabetes Comment: - A1c 7.3 - BS well controlled - Had been off home meds - Continue Lispro SS (8) Systolic CHF, chronic Comment: - Asypmtomatic - EF 40-45% - Severe tricuspid regurg - Likely mod-severe pulmonary hypertension based on previous echo from 2016, unable to visualize on current echo - Continue metoprolol (9) Anemia Comment: -stable - AOCD secondary to ESRD (10) Hyperbilirubinemia Comment: - Chronic, documented history of alcoholic cirrhosis - Liver US with hepatomegaly and small amount of ascites - Will need outpatient follow up with GI (11) DVT prophylaxis Comment: - Heparin SQ (12) Full code status Comment: Status and Disposition: Inpatient. Will likely need MANJEET.
--- NOTE | 2019-06-28 15:44 | PN ---
Progress Note - Progress Note Date of Service: 06/28/19 - Nephrology note Note: Chief complaint: End-stage kidney disease on hemodialysis Friday and Friday. History of present illness: Patient had a right foot TMA yesterday. Today is his regular dialysis day. I saw the patient during maintenance dialysis. He was tolerating treatment well. Blood pressure on the low side. He had just received a dose of Percocet before my visit so he was a little sleepy. He had no complaints related to dialysis. Review of systems: Sleepy, denies chest pain or shortness of breath. Pain improved with Percocet. active medications Acetaminophen (Tylenol Tab*) 650 mg PO Q4H PRN PRN Reason: PAIN - MILD Last Admin: 06/26/19 11:58 Dose: 650 mg Amlodipine Besylate (Norvasc Tab*) 10 mg PO DAILY [facility] Last Admin: 06/28/19 07:29 Dose: 10 mg Aspirin (Aspirin 81 Mg Chew Tab*) 81 mg PO DAILY [facility] Last Admin: 06/28/19 07:28 Dose: 81 mg Calcitriol (Rocaltrol Cap*) 0.75 mcg PO BID [facility] Last Admin: 06/28/19 07:29 Dose: 0.75 mcg Clopidogrel Bisulfate (Plavix Tab*) 75 mg PO DAILY [facility] Last Admin: 06/28/19 07:28 Dose: 75 mg Cyclobenzaprine HCl (Flexeril Tab*) 5 mg PO BID PRN PRN Reason: muscle spasm Last Admin: 06/28/19 12:34 Dose: 5 mg Dextrose (D50w Syringe 50 Ml*) 12.5 gm IV PUSH .FOR FS < 60 - SS PRN PRN Reason: FS < 60 Heparin Sodium (Porcine) (Heparin Vial(*)) 5,000 units SUBCUT Q8HR [facility] Last Admin: 06/28/19 12:35 Dose: 5,000 units Cefepime HCl 1.5 gm/ Sodium (Chloride) 100 mls @ 200 mls/hr IVPB [id number] [facility] Insulin Human Lispro (Humalog*) 0 units SUBCUT ACHS [facility]; Protocol Last Admin: 06/28/19 11:58 Dose: Not Given Metoprolol Tartrate (Lopressor Tab*) 25 mg PO DAILY [facility] Last Admin: 06/28/19 07:29 Dose: 25 mg Morphine Sulfate (Morphine Inj (Syringe))*) 2 mg IV Q4H PRN PRN Reason: PAIN - SEVERE Last Admin: 06/28/19 07:33 Dose: 2 mg Nicotine (Nicotine Patch 21 Mg/24 Hr*) 1 patch TRANSDERM DAILY [facility] Last Admin: 06/28/19 07:30 Dose: 1 patch Nystatin (Nystatin Top Powder*) 1 applic TOPICAL BID [facility] Last Admin: 06/28/19 07:50 Dose: Not Given Oxycodone/Acetaminophen (Percocet 5/325 Tab*) 1 tab PO Q4H PRN PRN Reason: PAIN - MODERATE Last Admin: 06/28/19 09:40 Dose: 1 tab Patiromer (Veltassa Powder*) 8.4 gm PO DAILY [facility] Last Admin: 06/28/19 07:50 Dose: Not Given Pharmacy Profile Note (Nicotine Patch Removal Note*) 1 note PATCH OFF 2100 [facility] Last Admin: 06/27/19 21:16 Dose: 1 note Sertraline HCl (Zoloft*) 25 mg PO DAILY [facility] Last Admin: 06/28/19 07:29 Dose: 25 mg Sevelamer Carbonate (Renvela Tab*) 1,600 mg PO TID WITH MEALS [facility] Last Admin: 06/28/19 12:34 Dose: 1,600 mg Witch Evette (Tucks*) 1 pad TOPICAL DAILY [facility] Last Admin: 06/28/19 07:50 Dose: Not Given Laboratory Last Values WBC 16.8 10^3/uL (3.5-10.8) H 06/28/19 05:49 RBC 3.18 10^6 /uL (4.18-5.48) L 06/28/19 05:49 Hgb 9.3 g/dL (14.0-18.0) L 06/28/19 05:49 Hct 28 % (42-52) L 06/28/19 05:49 MCV 87 fL (80-94) 06/28/19 05:49 MCH 29 pg (27-31) 06/28/19 05:49 MCHC 34 g/dL (31-36) 06/28/19 05:49 RDW 15 % (10-15) 06/28/19 05:49 Plt Count 636 10^3/uL (150-450) H D 06/28/19 05:49 MPV 9.1 fL (7.4-10.4) 06/28/19 05:49 Neut % (Auto) 64.2 % 06/28/19 05:49 Lymph % (Auto) 26.9 % 06/28/19 05:49 [place] % (Auto) 5.6 % 06/28/19 05:49 Eos % (Auto) 2.1 % 06/28/19 05:49 Baso % (Auto) 1.2 % 06/28/19 05:49 Absolute Neuts (auto) 10.8 10^3/ul (1.5-7.7) H 06/28/19 05:49 Absolute Lymphs (auto) 4.5 10^3/ul (1.0-4.8) 06/28/19 05:49 Absolute Monos (auto) 0.9 10^3/ul (0-0.8) H 06/28/19 05:49 Absolute Eos (auto) 0.3 10^3/ul (0-0.6) 06/28/19 05:49 Absolute Basos (auto) 0.2 10^3/ul (0-0.2) 06/28/19 05:49 Absolute Nucleated RBC 0.1 10^3/ul 06/28/19 05:49 Immature Gran % 2.0 % (0-9) 06/28/19 05:49 Neutrophils % 65.0 % 06/28/19 05:49 Band Neutrophils % 2.0 % (0-8) 06/26/19 04:47 Lymphocytes % 24.0 % 06/28/19 05:49 Reactive Lymphs % 1.0 % (0-6) 06/28/19 05:49 Monocytes % 6.0 % 06/28/19 05:49 Eosinophils % 2.0 % 06/28/19 05:49 Metamyelocytes % 1.0 % (0-2) 06/28/19 05:49 Myelocytes % 1.0 % (0-1) 06/28/19 05:49 Nucleated RBC % 0.3 06/28/19 05:49 Nucleated RBCs/100 WBC 1.0 (0-0) H 06/26/19 04:47 Normal RBC Morphology Not Reportable 06/28/19 05:49 Polychromasia 1+ 06/28/19 05:49 Hypochromasia 1+ 06/26/19 04:47 Anisocytosis 1+ 06/28/19 05:49 Hem Pathologist Commnt 06/24/19 05:32 INR (Anticoag Therapy) 1.42 (0.82-1.09) H 06/22/19 05:08 POC Activ Clotting Time 251 seconds 06/18/19 17:24 Sodium 130 mmol/L (135-145) L 06/28/19 05:49 Potassium 5.3 mmol/L (3.5-5.0) H 06/28/19 05:49 Chloride 92 mmol/L (101-111) L 06/28/19 05:49 Carbon Dioxide 23 mmol/L (22-32) 06/28/19 05:49 Anion Gap 15 mmol/L (2-11) H 06/28/19 05:49 BUN 61 mg/dL (6-24) H 06/28/19 05:49 Creatinine 8.80 mg/dL (0.67-1.17) H 06/28/19 05:49 Est GFR ( Amer) 7.8 (>60) 06/28/19 05:49 Est GFR (Non-Af Amer) 6.5 (>60) 06/28/19 05:49 BUN/Creatinine Ratio 6.9 (8-20) L 06/28/19 05:49 Glucose 96 mg/dL (70-100) 06/28/19 05:49 POC Glucose (mg/dL) 133 mg/dL (70-100) H 06/27/19 21:14 Hemoglobin A1c 7.3 % (4.0-5.6) H 06/16/19 11:29 Lactic Acid 0.7 mmol/L (0.5-2.0) 06/20/19 19:45 Calcium 9.1 mg/dL (8.6-10.3) 06/28/19 05:49 Phosphorus 6.6 mg/dL (2.5-5.0) H 06/24/19 05:32 Total Bilirubin 5.10 mg/dL (0.2-1.0) H 06/16/19 11:29 AST 25 U/L (13-39) 06/16/19 11:29 ALT 20 U/L (7-52) 06/16/19 11:29 Alkaline Phosphatase 173 U/L (34-104) H 06/16/19 11:29 C-Reactive Protein 148.02 mg/L (<8.01) H 06/25/19 05:01 Total Protein 9.1 g/dL (6.4-8.9) H 06/16/19 11:29 Albumin 3.5 g/dL (3.2-5.2) 06/16/19 11:29 Globulin 5.6 g/dL (2-4) H 06/16/19 11:29 Albumin/Globulin Ratio 0.6 (1-3) L 06/16/19 11:29 Random Vancomycin 23.0 mcg/mL 06/28/19 05:49 Physical exam was done from a distance due to COVID 19. Patient was already examined by Ortho and Hospitalist service. Sitting in the dialysis chair, sleepy but in no acute distress. Both feet with clean dressing. No Le edema. Assessment and Plan: ESRD due to uncontrolled diabetes mellitus type 2. Hemodialysis on Friday. Patient undergoing maintenance hemodialysis today. I saw him during dialysis and he was stable at the time of my exam. He has had significant volume removed since he was in the hospital. I reviewed the dialysis prescription with the dialysis nurse : 2K 2.5 Ca, 138 sodium, blood flow 500 mL/min, dialysate flow 800 mL/min, bicarbonate 32, temperature 36, no heparin. No issues with clotting prior to this treatment, without heparin. 3 hour total time. UF 2-3 L as tolerated. Most probably a new target weight has to be determined after discharge. No recent weight recorded in the computer. AVF without problems during treatment. Hypertension: With good volume control achieved while hospitalized and blood pressure medications now his blood pressure is under excellent control. Peripheral vascular disease with gangrenous toes bilaterally. Status post TMA bilaterally. Persistent leukocytosis. Patient will continue on IV antibiotics with dialysis after discharge. Hyperphosphatemia still not on target but significantly improved in the hospital. On Renvela 1600 mg by mouth 3 times a day with meals Secondary hyperparathyroidism on calcitriol 0.75 mcg by mouth twice a day. Anemia of end-stage kidney disease. Erythropoietin with dialysis Hyperkalemia better controlled than in the outpatient setting, but still not on target.
[2019-06-28] MEDS ORDERED: NS 0.9% IVPB SCH (16:00)
[2019-06-28] MEDS ORDERED: CEFEPIME IVPB SCH (16:00)
[2019-06-28] MEDS ORDERED: Vancomycin(*) 1,000 MG in NS 0.9% 250 ML* 250 ML IV ONE (16:30)
[2019-06-28] MEDS: Nicotine Patch Removal NOTE PATCH OFF SCH (21:21)
--- NOTE | 2019-06-28 23:11 | DS ---
CC: [facility]; Valerio Phillips MD; Benito Restrepo MD; Bob Garcia MD; Dr. Paulson * DISCHARGE SUMMARY: DATE OF ADMISSION: 06/16/19 ANTICIPATED DATE OF DISCHARGE: 06/29/19 PRIMARY CARE PROVIDER: Yoon Berg. OTHER PROVIDERS: Valerio Phillips MD; Benito Restrepo MD; Bob Garcia MD; Dr. Paulson. ATTENDING PHYSICIAN: Gracie Hook MD * (dictated by KAVITA Mustafa). PRIMARY DIAGNOSES: 1. Gangrene, left foot, status left transmetatarsal amputation, 06/22/19. 2. Gangrene, right foot, status post right transmetatarsal amputation, . 3. Peripheral artery disease. 4. Contact dermatitis. 5. Sepsis secondary to gangrene, bilateral lower extremities. SECONDARY DIAGNOSES: 1. Diabetes mellitus, type 2. 2. End-stage renal disease. 3. Cirrhosis, hyperbilirubinemia. 4. Hypertension. 5. Systolic heart failure. 6. Anemia. STUDIES WHILE IN THE HOSPITAL: 1. DARRYN, impression: This DARRYN is of little diagnostic utility due to the patient's inability to remain still; findings are consistent with calcified atherosclerosis with apparent significant arterial flow reduction. 2. Left foot, 2 views, impression: Extensive calcifications with suspected, but poorly characterized ulcerations about the third through fifth digits. No radiographic evidence of osteomyelitis, moderate first MTP osteoarthropathy, calcaneal enthesophytes. 3. Right foot x-ray, impression: Extensive vascular calcifications. Osteopenia with no fracture or katy erosion. Calcaneal enthesophytes. 4. Abdominal ultrasound, limited, impression: Increased pulsatility of the hepatic and portal veins as above. This is often seen in the setting of right- sided heart failure. Hepatomegaly with small volume ascites. No intra or extrahepatic biliary duct dilatation. A 5 mm gallbladder polyp, recommend right upper quadrant ultrasound 6 months to document stability of this low suspicion finding. Gallbladder wall thickened could be related to a partially collapsed state and/or third spacing. 5. Transthoracic echocardiogram. LV systolic function mildly to moderately reduced, estimated EF 40% to 45%. No regional wall motion abnormalities. Mild- to- moderate dilation of RV. LA [id number] dilated. RA moderately dilated. Trace MR, severe TR. 6. Bilateral lower extremity arterial duplex, impression: Widespread flow- limiting atherosclerosis causing foci of stenosis and potential occlusion as described above. CONSULTATIONS WHILE IN THE HOSPITAL: 1. Orthopedics: Vascular consult placed. MRI bilateral lower extremities. Start IV antibiotics. Recommend vanco, cefepime, Flagyl. ID consulted. Suspect the patient will need vascular intervention. Suspect he is going to need transmetatarsal amputation of left foot at some point and right fifth toe amputation, though left is more urgent. 2. Interventional Radiology: Arteriography to determine feasibility of endovascular revascularization, potentially could be added on Friday. The patient will require HD with 24 hours of angiography. Continue IV antibiotics, wound care. Surgical amputation as indicated. 3. Infectious Disease: Bilateral feet with gangrene. Recommend continuing cefepime, vanco, and Flagyl. Attempt culture in setting of chronic wounds. Wounds are likely colonized and may not provide good yield of information. We will await operative cultures. We will continue to follow. Final recommendations based on the patient's clinical course and cultures. PROCEDURES WHILE IN THE HOSPITAL: 1. Interventional angiography, pelvic and bilateral lower extremity arteriography, revascularization, and stenting of the proximal left SFA. Balloon angioplasty of the left anterior tibial artery and tibioperoneal trunk. Percutaneous closure of the right common femoral arteriotomy achieved with a 6 -Tajik Angio-Seal closure device, 06/18/19. 2. Left transmetatarsal amputation due to necrotic stage IV ulceration of left forefoot, 06/22/19, performed by Dr. Jacek Rondon. 3. Right transmetatarsal amputation due to necrotic right forefoot, performed on 06/27/[address] Jacek Rondon. DISCHARGE MEDICATIONS: Home medications: 1. Acetaminophen 650 mg p.o. q.4 hours p.r.n. 2. Amlodipine 10 mg p.o. daily. 3. Aspirin 81 mg p.o. daily. 4. Calcitriol 0.75 mcg p.o. b.i.d. 5. Clopidogrel 75 mg p.o. daily. 6. Cyclobenzaprine 5 mg p.o. b.i.d. p.r.n. 7. Diphenhydramine 25 to 50 mg p.o. daily p.r.n. 8. Ferric citrate 630 mg p.o. t.i.d. 9. Metoprolol tartrate 25 mg p.o. daily. 10. Nicotine patch 21 mg 1 patch transdermally daily. 11. Nitroglycerin 0.4 mg sublingual q.5 minutes p.r.n., MDD 3 tabs. 12. Nystatin topical powder 1 application topically b.i.d. 13. Oxycodone/acetaminophen 5/325 one tab p.o. q.4 hours p.r.n. 14. Patiromer 8.4 g p.o. daily. 15. Sertraline 25 mg p.o. daily. 16. Witch Evette pads 1 pad topically daily. New home medications: 1. Aspirin. 2. Clopidogrel. 3. Cyclobenzaprine. 4. Oxycodone/acetaminophen. 5. Nicotine patch. 6. Nystatin topical powder. 7. Sertraline. 8. Witch Evette pads. HISTORY OF PRESENT ILLNESS/HOSPITAL COURSE: Mr. Sepulveda is a 48-year-old male with a past medical history of diabetes mellitus type 2, not on treatment; end- stage renal disease, on hemodialysis; hypertension; tobacco abuse who presented to the ER with complaints of left foot pain. For full and complete details, please see the history and physical dictated by Sabine Dasilva DO, but in short the patient presents with the above symptoms. He was noted to have wet gangrene in digits 3 through 5 and presented to the ER with sepsis. X-rays were obtained and did not show evidence of osteomyelitis despite the fact that suspicion was very high. An MRI was ordered, but the patient was unable to tolerate this. Orthopedics, Infectious Disease, and Interventional Radiology were consulted. An DARRYN was performed and was nondiagnostic. Interventional Radiology recommended pelvic and lower extremity arteriography, which was performed and revealed occlusive arteriography, and therefore, revascularization was performed and stenting of the proximal left SFA was performed. Balloon angioplasty of left DANIEL, TPT was also performed on 06/18/19. The patient was placed on dual antiplatelet therapy, which he will continue for 6 months. He will follow outpatient with Dr. Phillips. The patient received a preoperative workup, which included an echocardiogram that revealed systolic heart failure with an EF of 40% to 45% and severe TR. He was medically optimized for his surgery. On 06/22/19, the patient had a left transmetatarsal amputation. Prior to this, Infectious Disease was consulted and made recommendations for antibiotics. They continued to follow throughout the patient's stay and adjusted his antibiotics as necessary. The patient did present with sepsis with fever and leukocytosis. His fever did resolve, and by the time of discharge, he has been afebrile since his initial amputation. The patient received a right foot transmetatarsal amputation on 06/27/19. Again, Infectious Disease continued to follow on the patient throughout his stay. An initial left foot wound culture was sent and revealed Citrobacter freundii and Stenotrophomonas maltophilia. Right foot wound culture is still pending. At this time, Infectious Disease recommends discontinuation of vancomycin and Levaquin and continuation of cefepime renal/HD dosing, which will be performed after hemodialysis. He will receive a weekly CBC, CMP, and CRP and follow up with Infectious Disease in 1 to 2 weeks. Mr. Sepulveda did have noted hyperbilirubinemia upon admission, and therefore, an ultrasound of the abdomen was obtained and revealed hepatomegaly with small volume of ascites. He had scleral icterus throughout his stay and has a known history of alcoholic cirrhosis. He was advised to follow up with Gastroenterology in the outpatient setting for alcoholic cirrhosis and hepatomegaly. Throughout the patient's inpatient stay, he continued with his hemodialysis on Mondays, Wednesdays, and Fridays, which he tolerated well. Mr. Sepulveda did complain of some depression throughout his stay stating that he had a depressed mood. For this, he was started on sertraline with instructions to follow up with his primary care provider regarding further titration. On the day prior to discharge, Mr. Sepulveda complains of 3/10 right foot pain. He notes that he has not been ambulating, but has been up and transferring to chair. He continues to have tenderness in the intergluteal region from an area that is irritated by contact dermatitis, for which he continues to use Witch Evette pads. He reports some relief with this. He denies chest pain, shortness of breath, cough, fevers, chills, abdominal pain, nausea, vomiting, diarrhea, or constipation. He denies myalgias and arthralgias, but does note that he has bilateral foot pain, right greater than left, and has some muscle spasms which are relieved with Flexeril. Mr. Sepulveda is stable for discharge to [facility]. PHYSICAL EXAMINATION: Vital Signs: Temperature 97.9 oral, heart rate 64, respiratory rate 16, oxygen saturation 100% on room air, blood pressure 157/68. General: Mr. Sepulveda is an obese 48-year-old male who is sitting up in bed. He appears chronically ill and older than his stated age. He appears to be in no acute distress, but does appear somewhat tired. HEENT: PERRL. Scleral icterus without injection. Hearing is grossly intact. Oral mucous membranes are moist. There are no lesions. Pharynx is clear. Tongue is at midline. Palate elevates symmetrically. Cardiovascular: Regular rate and rhythm with S1 , S2, present. No murmurs, rubs, clicks, or gallops. There is no JVD. There is no peripheral edema. Pulmonary: Symmetrical chest expansion without use of accessory muscles. Clear to auscultation bilaterally without rhonchi, wheeze, or rales. Abdomen: Mildly distended. Bowel sounds in all quadrants. The abdomen is soft without tenderness to palpation. Extremities: Bilateral lower extremities with clean, dry, and intact dressing in place. Skin: The patient has diffuse wounds/abrasions throughout the skin that are in various states of healing. Neuro: The patient is awake. He is alert and oriented x3. Cranial nerves II through XII are grossly intact. He moves all of his extremities. DISCHARGE PLAN: Mr. Sepulveda will be discharged to [facility]. CONDITION: Fair. DIET: Resume home diet. ACTIVITY: Heel weightbearing, bilateral lower extremities. MEDICATIONS: 1. As above. 2. Continue cefepime after each HD. 3. Aspirin and Plavix daily x6 months. EDUCATION: 1. Weekly CBC, CMP, CRP, while on antibiotics. 2. Follow up with primary care provider in 4 to 7 days. 3. Follow up with Gastroenterology regarding liver ultrasound results, cirrhosis. 4. Follow up with Dr. Restrepo, Infectious Disease, in 1 to 2 weeks. 5. Follow up with Dr. Rondon, Orthopedics. 6. Follow up with Dr. Phillips, Interventional Radiology, in 4 to 6 weeks. 7. Return to the ER with any medical concerns or complaints. This is a summarized report of a complex medical history and hospital stay. For further details, please see the entire medical record. TIME SPENT: Approximately 40 minutes was spent on this discharge, greater than half that time was spent [id number] with the patient discussing discharge plans and instructions. KAVITA ALVAREZ [id number]/[facility] #: [id number] OLIVA
[2019-06-29] MEDS: oxyCODONE/Acetamin 5/325 MG* TAB PO PRN ×3 (05:36→13:20)
[2019-06-29] MEDS: Heparin VIAL(*) 5000 UNITS/ML VIAL (FIVE THOUSAND) SUBCUT SCH (05:38)
[2019-06-29] MEDS: Insulin LISPRO* 1 UNITS UNIT SUBCUT SCH ×2 (07:47→12:38)
--- NOTE | 2019-06-29 08:32 | DS ---
AMENDED REPORT NOW INCLUDES DESIGNATED COSIGNER DISCHARGE SUMMARY: DATE OF ADMISSION: 06/16/19 DATE OF DISCHARGE: 06/29/19 PRIMARY CARE PROVIDER: [facility]. ATTENDING PHYSICIAN: Dr. Sabine Dasilva.* (DICTATED BY AC MUÑOZ NP) ADDENDUM: Please note that this discharge summary is an addendum to the discharge summary dictated by KAVITA Mustafa on 06/28/19. HISTORY OF PRESENT ILLNESS AND HOSPITAL COURSE: The patient had no medical events overnight. This morning he is seen sitting in the chair. He reports feeling well. He is having some difficulty with balance while ambulating and this is a bit distressing for him, although he is motivated to become independent again. He reports pain is well managed. Denies any chest pain, shortness of breath, cough, nausea, or vomiting. Bilateral lower extremities are slightly tender to the touch, left more so than the right. PHYSICAL EXAMINATION AND DISCHARGE PLAN: Remain unchanged from the previous discharge summary dictated by KAVITA Mustafa. DISCHARGE CONDITION: Stable. DISCHARGE DISPOSITION: group home facility, [facility]. This is a summarized report of a complex medical history and hospital stay. For further details, please see the entire medical record. TIME SPENT: Approximately 35 minutes was spent on this discharge. AC MUÑOZ NP [id number]/[facility] #: [id number]
[2019-06-29] MEDS: Sevelamer TAB* 800 MG PO SCH ×2 (09:30→12:37)
[2019-06-29] MEDS: Metoprolol Tartrate TAB* 25 MG PO SCH (09:31)
[2019-06-29] MEDS: Sertraline* 25 MG TAB PO SCH (09:31)
[2019-06-29] MEDS: amLODIPine TAB* 5 MG PO SCH (09:31)
[2019-06-29] MEDS: Clopidogrel TAB* 75 MG PO SCH (09:32)
[2019-06-29] MEDS: Aspirin 81 mg CHEW TAB* 81 MG TAB.CHEW PO SCH (09:32)
[2019-06-29] MEDS: Calcitriol CAP* 0.25 MCG PO SCH (09:33)
[2019-06-29] MEDS: Nicotine PATCH 21 MG/24 HR* PATCH TRANSDERM SCH (09:36)
[2019-06-29] MEDS: Nystatin TOP POWDER* 15 GM BTL TOPICAL SCH (09:39)
[2019-06-29] MEDS: Patiromer POWDER* 8.4 GM PAK PO SCH (09:39)
[2019-06-29] MEDS: Witch Hazel PAD* JAR TOPICAL SCH (09:40)
[2019-06-29] MEDS ORDERED: Levofloxacin 500 MG IVPREMIX(* 500 MG/100 ML BAG IVPB SCH (10:00)
--- NOTE | 2019-06-29 10:55 | PN ---
Progress Note - Progress Note Date of Service: 06/29/19 SOAP: Subjective: CC: Bilateral foot necrotic wounds HPI: Mr. Sepulveda is a 48 yo male with PMH significant for ESRD on hemodialysis , DM2, and HTN; who presented to the hospital for bilateral foot wounds. S/P left TMA and right TMA. Denies fever, chills, neck/back pain, ABD pain, nausea, vomiting, or diarrhea. Improving pain in feet. He states that he doesn't urinate in the setting of HD. He feels tired today, and didn't sleep well last night. Objective: Vital Signs - 8 hr 06/29/19 06/29/19 06/29/19 03:34 05:36 07:21 Temperature 98.5 F 97.8 F Pulse Rate 65 73 Respiratory 16 16 17 Rate Blood Pressure 136/68 152/70 (mmHg) O2 Sat by Pulse 99 100 Oximetry Physical Exam: eneral: NAD, sitting up on the side of the bed Neurological: Alert and Oriented HEENT: Moist MM Cardiovascular: Heart rate regular Respirator: Lung sounds clear Abdominal: Bowel sounds present; ABD soft, non tender and non distended MSK: POTTER. No tenderness with palpation of the neck, back or spine Skin: Diffuse scabs over the body due to "picking". Bilateral foot DSG clean, dry and intact Laboratory Tests 06/28/19 06/28/19 05:49 05:49 WBC 16.8 H Hgb 9.3 L Hct 28 L Plt Count 636 H D Sodium 130 L Potassium 5.3 H Chloride 92 L Carbon Dioxide 23 BUN 61 H Creatinine 8.80 H Glucose 96 Microbiology 06/27/19 11:30 Anaerobic Culture - Preliminary Tissue No Growth Day 2 06/27/19 11:30 Gram Stain - Final Foot Right Wound Culture - Preliminary No Growth Day 2 06/25/19 19:10 Aerobic Blood Culture - Preliminary Blood Venous No Growth Day 3 Anaerobic Blood Culture - Preliminary No Growth Day 3 06/25/19 19:10 Aerobic Blood Culture - Preliminary Blood Venous No Growth Day 3 Anaerobic Blood Culture - Preliminary No Growth Day 3 06/22/19 08:14 Anaerobic Culture - Final Wound - Left Gram Stain - Final Wound Culture - Final Citrobacter Freundii Stenotrophomas Maltophilia 06/20/19 21:57 Aerobic Blood Culture - Final Blood Venous No Growth Day 5 Anaerobic Blood Culture - Final No Growth Day 5 06/20/19 19:45 Aerobic Blood Culture - Final Blood Venous No Growth Day 5 Anaerobic Blood Culture - Final No Growth Day 5 06/16/19 12:40 Nasal Screen MRSA (PCR) - Final Nasal Mrsa Not Detected Assessment: 1. Bilateral foot gangrene with suspect underlying chronic osteomyelitis. Plain film xrays with no signs of osteomyelitis. Unable to tolerate MRI. S/P revascularization of the left LE with Dr. Phillips. In setting of chronic wounds, suspect this represents chronic osteomyelitis. Left foot s/p TMA, POD #7. Wound cultures from the OR on the left foot citrobacter and stenotrophomas (suspect this is not a pathogen). Right foot s/p TMA, POD #2. Cultures pending from surgery, preliminary with no growth. Surgical pathology pending. Afebrile since 06/21. Persistent leukocytosis but now trending down. CRP elevated. 2. Persistent leukocytosis. Afebrile. Blood cultures with no growth to date. CRP elevated. Now improving. 3. DM2. 4. ESRD, on hemodialysis. Plan: Continue Cefepime (renal/HD dosing) after HD. Day . No need for PICC line will receive ABX at end of dialysis. Weekly labs while on IV ABX: CBC, CMP, and CRP. Followup with ID outpatient in 1-2 weeks (Tele[facility]).
[2019-06-29 11:35] VITALS: BP 153/79
== END 2019-06-29 13:30 | DRG 239 ==
LOC: ED 11:04 → SSU 13:22
PROVIDERS: ADMIT Hospitalist; ATTEND Hospitalist
PROC: 047 Lower Arteries, Dilation (ICD-10-PCS; 2019-06-18)
PROC: 047 Lower Arteries, Dilation (ICD-10-PCS; 2019-06-18)
PROC: 04HL3DZ Insertion of Intraluminal Device into Left Femoral Artery, Percutaneous Approach (ICD-10-PCS; 2019-06-18)
PROC: 5A1D70Z Performance of Urinary Filtration, Intermittent, Less than 6 Hours Per Day (ICD-10-PCS; 2019-06-18)
PROC: 5A1D70Z Performance of Urinary Filtration, Intermittent, Less than 6 Hours Per Day (ICD-10-PCS; 2019-06-21)
PROC: 0Y6N0Z0 Detachment at Left Foot, Complete, Open Approach (ICD-10-PCS; principal; 2019-06-22 07:30)
PROC: 5A1D70Z Performance of Urinary Filtration, Intermittent, Less than 6 Hours Per Day (ICD-10-PCS; 2019-06-23)
PROC: 5A1D70Z Performance of Urinary Filtration, Intermittent, Less than 6 Hours Per Day (ICD-10-PCS; 2019-06-25)
PROC: 0Y6M0Z0 Detachment at Right Foot, Complete, Open Approach (ICD-10-PCS; 2019-06-27)
PROC: 5A1D70Z Performance of Urinary Filtration, Intermittent, Less than 6 Hours Per Day (ICD-10-PCS; 2019-06-28)
DX: E11.52 Type 2 diabetes mellitus with diabetic peripheral angiopathy with gangrene (principal); N18.6 End stage renal disease; A41.9 Sepsis, unspecified organism; I96 Gangrene, not elsewhere classified; I13.2 Hypertensive heart and chronic kidney disease with heart failure and with stage 5 chronic kidney disease, or end stage renal disease; L97.429 Non-pressure chronic ulcer of left heel and midfoot with unspecified severity; I50.22 Chronic systolic (congestive) heart failure; K70.31 Alcoholic cirrhosis of liver with ascites; L97.529 Non-pressure chronic ulcer of other part of left foot with unspecified severity; E11.621 Type 2 diabetes mellitus with foot ulcer; L97.519 Non-pressure chronic ulcer of other part of right foot with unspecified severity; D63.1 Anemia in chronic kidney disease; E11.42 Type 2 diabetes mellitus with diabetic polyneuropathy; E11.22 Type 2 diabetes mellitus with diabetic chronic kidney disease; L25.9 Unspecified contact dermatitis, unspecified cause; E87.5 Hyperkalemia; E11.65 Type 2 diabetes mellitus with hyperglycemia; E80.6 Other disorders of bilirubin metabolism; M85.871 Other specified disorders of bone density and structure, right ankle and foot; L08.89 Other specified local infections of the skin and subcutaneous tissue; F32.9 Major depressive disorder, single episode, unspecified; I07.1 Rheumatic tricuspid insufficiency; F17.210 Nicotine dependence, cigarettes, uncomplicated; B96.89 Other specified bacterial agents as the cause of diseases classified elsewhere; Z99.2 Dependence on renal dialysis; Z79.899 Other long term (current) drug therapy; Z88.5 Allergy status to narcotic agent; Z88.8 Allergy status to other drugs, medicaments and biological substances; Z82.3 Family history of stroke
CPT/HCPCS: 36415; 76705; 80048; 80053; 80202; 83036; 83605; 84100; 85025; 85027; 85060; 85347; 85610; 86140; 87040; 87070; 87073; 87077; 87186; 87205; 87641; 90935; 93005; 93306; 93922; 93925; 96365; 99284; A9270-GY; G0257; J0692; J1644; J1956; J2060; J2250; J2270; J2405; J2704; J2795; J3010; J3370; J3490; Q5106

== ENCOUNTER 2019-10-25 10:31 | Inpatient (IN) ==
[2019-10-25] MEDS ORDERED: Cefepime 2 GM in Dextrose 2 GM/50 ML BAG IV ONE (12:27)
[2019-10-25] MEDS ORDERED: Vancomycin 1,500 MG in NS 0.9% 250 ml 250 ML IVPB ONE (12:27)
[2019-10-25] MEDS ORDERED: metroNIDAZOLE IV 500 MG/100ML 500 MG/100 ML BAG IVPB ONE (12:28)
[2019-10-25] MEDS ORDERED: NS 0.9% 1000 ml BAG 1,000 ML IV ONE (12:29)
[2019-10-25 14:17] LABS: Hematocrit 29 % (42-52); Hemoglobin 9.9 g/dL (14.0-18.0); Mean Corpuscular HGB Conc 34 g/dL (31-36); Mean Corpuscular Hemoglobin 27 pg (27-31); Mean Corpuscular Volume 80 fL (80-94); Mean Platelet Volume 9.1 fL (7.4-10.4); Platelet Count 596 10^3/uL (150-450); Red Blood Count 3.66 10^6 /uL (4.18-5.48); Red Cell Distribution Width 17 % (10-15); White Blood Count 15.6 10^3/uL (3.5-10.8)
[2019-10-25 14:22] LABS: INR 1.09 (0.82-1.09)
[2019-10-25 14:40] LABS: Albumin 3.1 g/dL (3.2-5.2); Calcium 8.7 mg/dL (8.6-10.3); Potassium 4.3 mmol/L (3.5-5.0)
[2019-10-25 14:46] LABS: Albumin/Globulin Ratio 0.5 (1-3); BUN/Creatinine Ratio 4.7 (8-20); C Reactive Protein 127.44 mg/L (<8.01); EGFR African American 16.2 (>60); EGFR Non-African American 13.3 (>60); Globulin 5.8 g/dL (2-4); Total Protein 8.9 g/dL (6.4-8.9)
[2019-10-25 14:56] LABS: ABS Basophils 0.2 10^3/ul (0-0.2); ABS Eosinophils 0.3 10^3/ul (0-0.6); ABS Lymphocytes 1.2 10^3/ul (1.0-4.8); Eosinophil % 1.9 %; Lymphocyte % 7.8 %
[2019-10-25] MEDS ORDERED: Piperacillin/Tazobac ADVAN 3.375 GM in NS 0.9% 100 ml BAG 100 ML IVPB ONE (16:13)
[2019-10-25] MEDS ORDERED: Dextrose 50% Syringe 50 ml 25 GM/50 ML SYRINGE IV PUSH PRN (16:35)
[2019-10-25] MEDS ORDERED: Zosyn per Pharmacy NOTE FOLLOW UP SCH (17:00)
[2019-10-25 17:37] LABS: Indirect Bilirubin 1.6 mg/dL (0.3-1.0)
[2019-10-25] MEDS ORDERED: Lanthanum 500 mg CHEW TAB PO SCH (21:00)
[2019-10-25] MEDS: metroNIDAZOLE IV 250 MG/50ML 50 ML IVPB SCH (22:52)
[2019-10-25] MEDS: Heparin 5000 UNITS/ML 1 mL VIAL SUBCUT SCH (22:52)
[2019-10-26] MEDS: metroNIDAZOLE IV 250 MG/50ML 50 ML IVPB SCH ×3 (05:46→21:26)
[2019-10-26] MEDS: oxyCODONE/Acetamin 5/325 mg TAB PO PRN ×2 (06:32→21:23)
[2019-10-26 08:13] LABS: BUN/Creatinine Ratio 4.8 (8-20); C Reactive Protein 112.3 mg/L (<8.01); Calcium 8.2 mg/dL (8.6-10.3); EGFR African American 11.1 (>60); EGFR Non-African American 9.2 (>60); Magnesium 2.2 mg/dL (1.9-2.7); Phosphorus 5.8 mg/dL (2.5-5.0); Potassium 4.3 mmol/L (3.5-5.0)
[2019-10-26] MEDS: Aspirin EC 81 mg TAB.EC (enteric coated) PO SCH (08:13)
[2019-10-26 08:15] LABS: ABS Basophils 0.1 10^3/ul (0-0.2); ABS Eosinophils 0.2 10^3/ul (0-0.6); ABS Lymphocytes 2.8 10^3/ul (1.0-4.8); ABS Monocytes 0.9 10^3/ul (0-0.8); ABS Neutrophils 11.2 10^3/ul (1.5-7.7); Eosinophil % 1.3 %; Hematocrit 27 % (42-52); Hemoglobin 9.2 g/dL (14.0-18.0); Lymphocyte % 18.3 %; Mean Corpuscular HGB Conc 35 g/dL (31-36); Mean Corpuscular Hemoglobin 27 pg (27-31); Mean Corpuscular Volume 79 fL (80-94); Mean Platelet Volume 9.2 fL (7.4-10.4); Nucleated Red Blood Cells % 0.1; Platelet Count 558 10^3/uL (150-450); Red Blood Count 3.36 10^6 /uL (4.18-5.48); Red Cell Distribution Width 17 % (10-15); White Blood Count 15.1 10^3/uL (3.5-10.8)
[2019-10-26] MEDS: Heparin 5000 UNITS/ML 1 mL VIAL SUBCUT SCH ×2 (10:23→22:12)
[2019-10-26] MEDS: ceFAZolin 1 GM ADVAN 1 GM in NS 0.9% 50 ML 50 ML IVPB SCH (12:00)
[2019-10-26] MEDS ORDERED: Senna TAB 8.6 mg TAB PO PRN (12:22)
[2019-10-27] MEDS: metroNIDAZOLE IV 250 MG/50ML 50 ML IVPB SCH ×3 (05:56→23:14)
[2019-10-27] MEDS: Aspirin EC 81 mg TAB.EC (enteric coated) PO SCH (08:03)
[2019-10-27] MEDS ORDERED: NS 0.9% 500 ml BAG 500 ML IV SCH (09:00)
[2019-10-27] MEDS: ceFAZolin 1 GM ADVAN 1 GM in NS 0.9% 50 ML 50 ML IVPB SCH (12:30)
[2019-10-27 13:44] LABS: Hematocrit 29 % (42-52); Hemoglobin 9.6 g/dL (14.0-18.0); Mean Corpuscular HGB Conc 33 g/dL (31-36); Mean Corpuscular Hemoglobin 27 pg (27-31); Mean Corpuscular Volume 80 fL (80-94); Mean Platelet Volume 8.7 fL (7.4-10.4); Platelet Count 584 10^3/uL (150-450); Red Blood Count 3.57 10^6 /uL (4.18-5.48); Red Cell Distribution Width 17 % (10-15); White Blood Count 13.6 10^3/uL (3.5-10.8)
[2019-10-27 13:56] LABS: INR 1.1 (0.82-1.09)
[2019-10-27 14:04] LABS: BUN/Creatinine Ratio 4.3 (8-20); Calcium 8.5 mg/dL (8.6-10.3); EGFR African American 17.2 (>60); EGFR Non-African American 14.2 (>60); Potassium 3.5 mmol/L (3.5-5.0)
[2019-10-27 14:16] LABS: ABS Basophils 0.1 10^3/ul (0-0.2); ABS Eosinophils 0.3 10^3/ul (0-0.6); ABS Lymphocytes 0.9 10^3/ul (1.0-4.8); ABS Monocytes 0.7 10^3/ul (0-0.8); ABS Neutrophils 11.5 10^3/ul (1.5-7.7); Eosinophil % 2.1 %; Lymphocyte % 6.9 %
[2019-10-27] MEDS: Ondansetron 4 mg VIAL 2 MG/ML 2 ml VIAL IV PRN (15:56)
[2019-10-27] MEDS: oxyCODONE/Acetamin 5/325 mg TAB PO PRN (20:23)
[2019-10-28] MEDS: metroNIDAZOLE IV 250 MG/50ML 50 ML IVPB SCH ×3 (05:22→22:02)
[2019-10-28] MEDS: Aspirin EC 81 mg TAB.EC (enteric coated) PO SCH (09:14)
[2019-10-28] MEDS: oxyCODONE/Acetamin 5/325 mg TAB PO PRN (09:18)
[2019-10-28] MEDS: ceFAZolin 1 GM ADVAN 1 GM in NS 0.9% 50 ML 50 ML IVPB SCH (12:02)
[2019-10-28 15:25] LABS: Albumin 2.8 g/dL (3.4-4.7); Gamma Globulin 3.3 g/dL (0.6-1.6); Total Protein(PEP) 8.4 g/dL (6.3 - 7.9)
[2019-10-28] MEDS: Ondansetron 4 mg VIAL 2 MG/ML 2 ml VIAL IV PRN (18:26)
[2019-10-29] MEDS: metroNIDAZOLE IV 250 MG/50ML 50 ML IVPB SCH ×2 (06:37→12:24)
[2019-10-29] MEDS: Aspirin EC 81 mg TAB.EC (enteric coated) PO SCH (09:16)
[2019-10-29 11:43] LABS: ABS Basophils 0.1 10^3/ul (0-0.2); ABS Eosinophils 0.2 10^3/ul (0-0.6); ABS Lymphocytes 1.3 10^3/ul (1.0-4.8); ABS Monocytes 0.8 10^3/ul (0-0.8); Eosinophil % 1.6 %; Hematocrit 29 % (42-52); Hemoglobin 9.9 g/dL (14.0-18.0); Lymphocyte % 8.7 %; Mean Corpuscular HGB Conc 34 g/dL (31-36); Mean Corpuscular Hemoglobin 28 pg (27-31); Mean Corpuscular Volume 81 fL (80-94); Mean Platelet Volume 8.7 fL (7.4-10.4); Nucleated Red Blood Cells % 0.1; Platelet Count 675 10^3/uL (150-450); Red Blood Count 3.61 10^6 /uL (4.18-5.48); Red Cell Distribution Width 18 % (10-15); White Blood Count 14.4 10^3/uL (3.5-10.8)
[2019-10-29 12:03] LABS: BUN/Creatinine Ratio 3.6 (8-20); Calcium 8.8 mg/dL (8.6-10.3); EGFR African American 18.6 (>60); EGFR Non-African American 15.4 (>60); Potassium 3.9 mmol/L (3.5-5.0)
[2019-10-29 12:05] LABS: Activated Partial Thrombo Time 31.5 seconds (26.0-38.0); INR 1.1 (0.82-1.09)
[2019-10-29] MEDS ORDERED: DOBUTamine 2000 MCG/ML IVPREMX 500 MG/250 ML BAG IV ONE (12:51)
[2019-10-29] MEDS ORDERED: Buffered Lidocaine 1% SYRIN 1 ml INTRADERM ONE ×2 (13:06→14:08)
[2019-10-29] MEDS ORDERED: Sodium Citrate/Citric Acid LIQ 15 ML UDC PO ONE (13:11)
[2019-10-29] MEDS: ceFAZolin 1 GM ADVAN 1 GM in NS 0.9% 50 ML 50 ML IVPB SCH (13:36)
[2019-10-29] MEDS ORDERED: Propofol 10 MG/ML 20 ML BTL ONE (13:37)
[2019-10-29] MEDS ORDERED: Phenylephrine IV 10 MG/ML 1 ml VIAL ONE ×3 (13:41→21:25)
[2019-10-29] MEDS ORDERED: NS 0.45% 1000 ml BAG 1,000 ML IV SCH (14:00)
[2019-10-29] MEDS ORDERED: Midazolam 5 mg/5 ml VIAL 1 mg/ml 5 ml VIAL (5 mg) ONE (14:33)
[2019-10-29] MEDS ORDERED: fentaNYL 250 mcg/5 ml 50 MCG/ML 5 ml VIAL (250 MCG) ONE (14:33)
[2019-10-29] MEDS ORDERED: ceFAZolin 2 GM PREMIX 2 GM/50 ML BAG ONE (15:59)
[2019-10-29] MEDS ORDERED: Bupivacaine 0.25% SDV 30 ML ONE (16:03)
[2019-10-29] MEDS ORDERED: Bupivacaine 0.25% EPI 200,000 30 ML SDV ONE (16:05)
[2019-10-29] MEDS ORDERED: Naloxone 0.4 mg VIAL 0.4 mg/ml 1 ml VIAL IV PRN (18:11)
[2019-10-29] MEDS ORDERED: Ondansetron 4 mg VIAL 2 MG/ML 2 ml VIAL IV PRN (18:11)
[2019-10-29] MEDS ORDERED: HYDROmorphone 1 MG/1 ML SYRINGE IV PRN (18:11)
[2019-10-29 18:52] LABS: Hematocrit 25 % (42-52); Hemoglobin 8.3 g/dL (14.0-18.0)
[2019-10-29] MEDS ORDERED: HYDROmorphone 1 MG/1 ML SYRINGE ONE (19:10)
[2019-10-29] MEDS ORDERED: fentaNYL 100 mcg/2 ml 50 MCG/ML VIAL ONE ×2 (21:05→22:53)
[2019-10-29] MEDS ORDERED: Metoclopramide 5 MG/ML VIAL (10 mg) ONE (21:12)
[2019-10-29] MEDS ORDERED: Ondansetron 4 mg VIAL 2 MG/ML 2 ml VIAL ONE (21:12)
[2019-10-29] MEDS ORDERED: Phenylephrine 40 mcg/mL 10mL (400mcg) SYRINGE ONE ×2 (21:13→22:50)
[2019-10-29] MEDS ORDERED: ceFAZolin VIAL VIAL ONE (21:43)
[2019-10-29] MEDS: fentaNYL 100 mcg/2 ml 50 MCG/ML VIAL IV PRN ×2 (22:54→23:03)
[2019-10-29] MEDS ORDERED: HYDROmorphone 0.5 MG/0.5 ML SYRINGE IV PRN (23:30)
[2019-10-29] MEDS ORDERED: Acetaminophen IV 1 GM/100ML 100 ML IVPB ONE (23:34)
[2019-10-29] MEDS ORDERED: fentaNYL 100 mcg/2 ml 50 MCG/ML VIAL IV PRN (23:35)
[2019-10-29] MEDS ORDERED: Phenylephrine INJ* 50 MG in NS 0.9% IV SCH (23:45)
[2019-10-30] MEDS: metroNIDAZOLE IV 250 MG/50ML 50 ML IVPB SCH ×4 (00:22→17:28)
[2019-10-30 00:29] LABS: Hematocrit 26 % (42-52); Hemoglobin 8.8 g/dL (14.0-18.0); Mean Corpuscular HGB Conc 34 g/dL (31-36); Mean Corpuscular Hemoglobin 29 pg (27-31); Mean Corpuscular Volume 83 fL (80-94); Mean Platelet Volume 9.2 fL (7.4-10.4); Platelet Count 502 10^3/uL (150-450); Red Cell Distribution Width 17 % (10-15); White Blood Count 25.6 10^3/uL (3.5-10.8)
[2019-10-30] MEDS ORDERED: metroNIDAZOLE IV 250 MG/50ML 50 ML IVPB SCH (00:30)
[2019-10-30] MEDS ORDERED: NS 0.9% 1000 ml BAG 1,000 ML IV SCH (01:45)
[2019-10-30 01:53] LABS: ABS Basophils 0.1 10^3/ul (0-0.2); ABS Eosinophils 0.1 10^3/ul (0-0.6); ABS Lymphocytes 2.5 10^3/ul (1.0-4.8); ABS Monocytes 1.6 10^3/ul (0-0.8); ABS Neutrophils 21.2 10^3/ul (1.5-7.7); Eosinophil % 0.4 %; Lymphocyte % 9.8 %; Nucleated Red Blood Cells % 0.1
[2019-10-30] MEDS: oxyCODONE/Acetamin 5/325 mg TAB PO PRN ×3 (03:55→16:09)
[2019-10-30] MEDS: HYDROmorphone 0.5 MG/0.5 ML SYRINGE IV SLOW PU PRN (04:43)
[2019-10-30 05:08] LABS: Hematocrit 23 % (42-52); Mean Corpuscular HGB Conc 35 g/dL (31-36); Mean Corpuscular Hemoglobin 29 pg (27-31); Mean Corpuscular Volume 83 fL (80-94); Mean Platelet Volume 8.9 fL (7.4-10.4); Platelet Count 472 10^3/uL (150-450); Red Blood Count 2.81 10^6 /uL (4.18-5.48); Red Cell Distribution Width 17 % (10-15); White Blood Count 28.3 10^3/uL (3.5-10.8)
[2019-10-30 06:07] LABS: Calcium 7.3 mg/dL (8.6-10.3)
[2019-10-30 06:13] LABS: BUN/Creatinine Ratio 3.4 (8-20); EGFR African American 13.3 (>60)
[2019-10-30 06:28] LABS: Potassium 4.8 mmol/L (3.5-5.0)
[2019-10-30 07:27] LABS: ABS Basophils 0.1 10^3/ul (0-0.2); ABS Eosinophils 0.1 10^3/ul (0-0.6); ABS Lymphocytes 2.3 10^3/ul (1.0-4.8); ABS Monocytes 1.4 10^3/ul (0-0.8); ABS Neutrophils 24.4 10^3/ul (1.5-7.7); Eosinophil % 0.3 %; Nucleated Red Blood Cells % 0.1
[2019-10-30] MEDS: Aspirin EC 81 mg TAB.EC (enteric coated) PO SCH (09:27)
[2019-10-30] MEDS: ceFAZolin 1 GM ADVAN 1 GM in NS 0.9% 50 ML 50 ML IVPB SCH (12:26)
[2019-10-30 14:48] LABS: INR 1.37 (0.82-1.09)
[2019-10-30 14:59] LABS: ABS Basophils 0.1 10^3/ul (0-0.2); ABS Eosinophils 0.1 10^3/ul (0-0.6); ABS Lymphocytes 1.6 10^3/ul (1.0-4.8); ABS Monocytes 1.3 10^3/ul (0-0.8); ABS Neutrophils 15.2 10^3/ul (1.5-7.7); Eosinophil % 0.7 %; Hematocrit 17 % (42-52); Hemoglobin 5.8 g/dL (14.0-18.0); Lymphocyte % 8.7 %; Mean Corpuscular HGB Conc 35 g/dL (31-36); Mean Corpuscular Hemoglobin 28 pg (27-31); Mean Corpuscular Volume 82 fL (80-94); Platelet Count 422 10^3/uL (150-450); Red Blood Count 2.05 10^6 /uL (4.18-5.48); Red Cell Distribution Width 16 % (10-15); White Blood Count 18.3 10^3/uL (3.5-10.8)
[2019-10-30 15:03] LABS: EGFR Non-African American 9.9 (>60)
[2019-10-30 15:41] LABS: ABS Basophils 0.1 10^3/ul (0-0.2); ABS Eosinophils 0.1 10^3/ul (0-0.6); ABS Lymphocytes 1.2 10^3/ul (1.0-4.8); ABS Monocytes 1.1 10^3/ul (0-0.8); ABS Neutrophils 13.8 10^3/ul (1.5-7.7); Eosinophil % 0.6 %; Hematocrit 20 % (42-52); Hemoglobin 6.6 g/dL (14.0-18.0); Lymphocyte % 7.4 %; Mean Corpuscular HGB Conc 33 g/dL (31-36); Mean Corpuscular Hemoglobin 28 pg (27-31); Mean Corpuscular Volume 83 fL (80-94); Mean Platelet Volume 8.9 fL (7.4-10.4); Nucleated Red Blood Cells % 0.1; Platelet Count 397 10^3/uL (150-450); Red Blood Count 2.39 10^6 /uL (4.18-5.48); Red Cell Distribution Width 17 % (10-15); White Blood Count 16.4 10^3/uL (3.5-10.8)
[2019-10-30] MEDS: Heparin 5000 UNITS/ML 1 mL VIAL SUBCUT SCH (21:51)
[2019-10-31] MEDS: metroNIDAZOLE IV 250 MG/50ML 50 ML IVPB SCH ×3 (00:54→16:54)
[2019-10-31] MEDS: oxyCODONE/Acetamin 5/325 mg TAB PO PRN ×2 (06:20→13:54)
[2019-10-31] MEDS: Aspirin EC 81 mg TAB.EC (enteric coated) PO SCH (09:08)
[2019-10-31] MEDS: Heparin 5000 UNITS/ML 1 mL VIAL SUBCUT SCH ×2 (09:10→21:23)
[2019-10-31] MEDS: ceFAZolin 1 GM ADVAN 1 GM in NS 0.9% 50 ML 50 ML IVPB SCH (11:58)
[2019-10-31 16:41] LABS: Hematocrit 18 % (42-52); Mean Corpuscular HGB Conc 34 g/dL (31-36); Mean Corpuscular Hemoglobin 28 pg (27-31); Mean Corpuscular Volume 84 fL (80-94); Mean Platelet Volume 8.6 fL (7.4-10.4); Platelet Count 444 10^3/uL (150-450); Red Blood Count 2.14 10^6 /uL (4.18-5.48); Red Cell Distribution Width 18 % (10-15); White Blood Count 17.3 10^3/uL (3.5-10.8)
[2019-10-31 16:55] LABS: BUN/Creatinine Ratio 4.5 (8-20); Calcium 8.3 mg/dL (8.6-10.3); EGFR African American 8.7 (>60); EGFR Non-African American 7.2 (>60); Potassium 4.4 mmol/L (3.5-5.0)
[2019-10-31 17:05] LABS: ABS Basophils 0.1 10^3/ul (0-0.2); ABS Eosinophils 0.2 10^3/ul (0-0.6); ABS Lymphocytes 1.1 10^3/ul (1.0-4.8); ABS Monocytes 1.2 10^3/ul (0-0.8); ABS Neutrophils 14.7 10^3/ul (1.5-7.7); Lymphocyte % 6.6 %; Nucleated Red Blood Cells % 0.2
[2019-11-01] MEDS: metroNIDAZOLE IV 250 MG/50ML 50 ML IVPB SCH ×4 (00:45→21:18)
[2019-11-01] MEDS: oxyCODONE/Acetamin 5/325 mg TAB PO PRN ×3 (02:18→21:18)
[2019-11-01 06:22] LABS: ABS Basophils 0.2 10^3/ul (0-0.2); ABS Eosinophils 0.2 10^3/ul (0-0.6); ABS Lymphocytes 1.7 10^3/ul (1.0-4.8); ABS Monocytes 1.3 10^3/ul (0-0.8); ABS Nucleated RBC 0.1 10^3/ul; Eosinophil % 0.8 %; Hematocrit 17 % (42-52); Hemoglobin 5.9 g/dL (14.0-18.0); Lymphocyte % 8.5 %; Mean Corpuscular HGB Conc 35 g/dL (31-36); Mean Corpuscular Hemoglobin 29 pg (27-31); Mean Corpuscular Volume 84 fL (80-94); Mean Platelet Volume 8.9 fL (7.4-10.4); Nucleated Red Blood Cells % 0.2; Platelet Count 455 10^3/uL (150-450); Red Blood Count 2.02 10^6 /uL (4.18-5.48); Red Cell Distribution Width 17 % (10-15); White Blood Count 20.4 10^3/uL (3.5-10.8)
[2019-11-01 06:32] LABS: BUN/Creatinine Ratio 4.7 (8-20); Calcium 8.1 mg/dL (8.6-10.3); EGFR African American 7.7 (>60); EGFR Non-African American 6.4 (>60)
[2019-11-01] MEDS: Heparin *DIALYSIS* ONLY 1,000 UNITS/ML VIAL DIALYSIS ONE ×3 (08:15→10:30)
[2019-11-01 10:17] LABS: C Reactive Protein 137.85 mg/L (<8.01)
[2019-11-01] MEDS ORDERED: NS 0.9% 50 ML 50 ML ONE (13:07)
[2019-11-01] MEDS: Ondansetron 4 mg VIAL 2 MG/ML 2 ml VIAL IV PRN (13:10)
[2019-11-01] MEDS: ceFAZolin 1 GM ADVAN 1 GM in NS 0.9% 50 ML 50 ML IVPB SCH (13:14)
[2019-11-01] MEDS: Heparin 5000 UNITS/ML 1 mL VIAL SUBCUT SCH ×2 (13:49→21:19)
[2019-11-01] MEDS: Aspirin EC 81 mg TAB.EC (enteric coated) PO SCH ×2 (13:49→13:52)
[2019-11-02 04:56] LABS: ABS Basophils 0.1 10^3/ul (0-0.2); ABS Eosinophils 0.2 10^3/ul (0-0.6); ABS Lymphocytes 1.4 10^3/ul (1.0-4.8); ABS Monocytes 0.9 10^3/ul (0-0.8); ABS Neutrophils 7.9 10^3/ul (1.5-7.7); Eosinophil % 1.8 %; Hematocrit 25 % (42-52); Hemoglobin 8.7 g/dL (14.0-18.0); Lymphocyte % 13.7 %; Mean Corpuscular HGB Conc 35 g/dL (31-36); Mean Corpuscular Hemoglobin 30 pg (27-31); Mean Corpuscular Volume 85 fL (80-94); Mean Platelet Volume 8.6 fL (7.4-10.4); Nucleated Red Blood Cells % 0.2; Platelet Count 456 10^3/uL (150-450); Red Blood Count 2.94 10^6 /uL (4.18-5.48); Red Cell Distribution Width 17 % (10-15); White Blood Count 10.5 10^3/uL (3.5-10.8)
[2019-11-02 06:03] LABS: Potassium 4.2 mmol/L (3.5-5.0)
[2019-11-02 06:08] LABS: BUN/Creatinine Ratio 4.4 (8-20); EGFR African American 11.8 (>60); EGFR Non-African American 9.8 (>60)
[2019-11-02] MEDS: Heparin 5000 UNITS/ML 1 mL VIAL SUBCUT SCH ×2 (08:40→21:27)
[2019-11-02] MEDS: Ondansetron 4 mg VIAL 2 MG/ML 2 ml VIAL IV PRN (08:50)
[2019-11-02] MEDS: Amoxicillin/Clavul 500/125 TAB (Augmentin 500 mg tab) PO SCH ×2 (10:01→21:27)
[2019-11-02] MEDS: Aspirin EC 81 mg TAB.EC (enteric coated) PO SCH (10:06)
[2019-11-02] MEDS: oxyCODONE/Acetamin 5/325 mg TAB PO PRN ×3 (11:51→21:32)
[2019-11-03 06:23] LABS: Hematocrit 24 % (42-52); Hemoglobin 8.5 g/dL (14.0-18.0); Mean Corpuscular HGB Conc 36 g/dL (31-36); Mean Corpuscular Hemoglobin 31 pg (27-31); Mean Corpuscular Volume 86 fL (80-94); Mean Platelet Volume 8.5 fL (7.4-10.4); Platelet Count 454 10^3/uL (150-450); Red Blood Count 2.79 10^6 /uL (4.18-5.48); Red Cell Distribution Width 17 % (10-15); White Blood Count 10.1 10^3/uL (3.5-10.8)
[2019-11-03 06:40] LABS: Calcium 7.9 mg/dL (8.6-10.3)
[2019-11-03 06:46] LABS: EGFR African American 8.6 (>60); EGFR Non-African American 7.1 (>60)
[2019-11-03 07:30] LABS: Potassium 4.9 mmol/L (3.5-5.0)
[2019-11-03] MEDS: Amoxicillin/Clavul 500/125 TAB (Augmentin 500 mg tab) PO SCH ×2 (08:20→21:31)
[2019-11-03] MEDS: Heparin *DIALYSIS* ONLY 1,000 UNITS/ML VIAL DIALYSIS ONE ×3 (09:17→11:15)
[2019-11-03] MEDS: HYDROmorphone 0.5 MG/0.5 ML SYRINGE IV SLOW PU PRN (14:26)
[2019-11-03] MEDS: Heparin 5000 UNITS/ML 1 mL VIAL SUBCUT SCH ×2 (15:09→21:31)
[2019-11-03] MEDS: Aspirin EC 81 mg TAB.EC (enteric coated) PO SCH (15:18)
[2019-11-03] MEDS: oxyCODONE/Acetamin 5/325 mg TAB PO PRN (17:37)
[2019-11-04] MEDS: Amoxicillin/Clavul 500/125 TAB (Augmentin 500 mg tab) PO SCH (09:55)
[2019-11-04] MEDS: Aspirin EC 81 mg TAB.EC (enteric coated) PO SCH (09:57)
[2019-11-04] MEDS: Heparin 5000 UNITS/ML 1 mL VIAL SUBCUT SCH (09:58)
[2019-11-04 10:55] VITALS: BP 155/74
== END 2019-11-04 16:50 | disposition home health service (06) | DRG 474 ==
LOC: ED 10:31 → MED 16:15 → ICU 10-29 23:23 → SSU 10-30 14:32
PROVIDERS: ADMIT Internal Medicine; ATTEND Hospitalist
PROC: O.ORAMP (2019-10-29 16:15)

== ENCOUNTER 2023-04-04 14:02 | Inpatient (IN) ==
[2023-04-04] MEDS ORDERED: NS 0.9% 1000 ml BAG 100 ML IV PRN (14:44)
[2023-04-04] MEDS ORDERED: Albumin Human 25% 25 GM/100 ML BTL IV PRN (14:44)
[2023-04-04] MEDS ORDERED: NS 0.9% 1000 ml BAG 200 ML IV PRN (14:44)
[2023-04-04] MEDS ORDERED: Vancomycin 1,000 MG in NS 0.9% 250 ml 250 ML IVPB ONE (16:06)
[2023-04-04 16:39] LABS: Hepatitis B Surface Antigen Nonreactive (Nonreactive)
[2023-04-04 16:50] LABS: Albumin 3.2 g/dL (3.2-5.2); Albumin/Globulin Ratio 0.9 (1-3); Calcium 6.9 mg/dL (8.6-10.3); Creatinine, Serum 15.28 mg/dL (0.67-1.17); Globulin 3.5 g/dL (2-4); Magnesium 3.1 mg/dL (1.9-2.7); Phosphorus 17.3 mg/dL (2.5-5.0); Potassium 8.3 mmol/L (3.5-5.0); Total Bilirubin 1.6 mg/dL (0.2-1.0); Total Protein 6.7 g/dL (6.4-8.9); eGFR CKD-EPI 3.4 (>60)
[2023-04-04] MEDS ORDERED: CALCIUM GLUCONATE 1GM/50ML NS 1 GM/50 ML BAG IV ONE (16:51)
[2023-04-04] MEDS ORDERED: Sodium Bicarbonate 8.4% SYR 50 ml SYRINGE IV ONE (16:51)
[2023-04-04] MEDS ORDERED: Dextrose 50% Syringe 50 ml 25 GM/50 ML SYRINGE IV PUSH ONE ×2 (16:51→16:52)
[2023-04-04] MEDS ORDERED: Sodium Polystyrene ORAL.SUSP 15 GM/60 ML BTL PO ONE (16:55)
[2023-04-04 16:57] LABS: Hepatitis B Surface Ab Immune (Immune)
[2023-04-04] MEDS ORDERED: EPINEPHrine SYR 0.1MG/ML 10 ml SYRINGE IV ONE ×2 (17:06→17:07)
[2023-04-04] MEDS ORDERED: Atropine 0.1 MG/ML 10 ml SYR (1 mg) ONE (17:06)
[2023-04-04] MEDS ORDERED: Succinylcholine 200 mg VIAL 20 mg/ml 10 ml VIAL (200 mg) ONE ×2 (17:08→17:12)
[2023-04-04] MEDS ORDERED: Etomidate 40 mg/20 ml (2 MG/ML) 20 ml VIAL (40 mg) ONE (17:09)
[2023-04-04] MEDS ORDERED: Rocuronium 50 mg VIAL 10 mg/ml 5 ml VIAL (50 mg) ONE (17:12)
[2023-04-04] MEDS ORDERED: Propofol 10 mg/ml 100 ML BTL 1,000 MG/100 ML BTL ONE (17:21)
[2023-04-04] MEDS: Propofol 10 mg/ml 100 ML BTL 1,000 MG/100 ML BTL IV SCH ×4 (17:25→23:26)
[2023-04-04 17:27] LABS: ABS Basophils 0.1 10^3/uL (0.0-0.1); ABS Eosinophils 0.1 10^3/uL (0.0-0.5); ABS Monocytes 0.8 10^3/uL (0.0-1.1); ABS Neutrophils 7.9 10^3/uL (1.5-7.6); ABS Nucleated RBC 0.02 10^3/ul; Eosinophil % 0.9 %; Hematocrit 49.5 % (38-53); Hemoglobin 16.5 g/dL (13.2-16.3); Lymphocyte % 10.1 %; Mean Corpuscular Hemoglobin 27.6 pg (27-33); Mean Corpuscular Hgb Conc 33.4 g/dL (31-36); Mean Corpuscular Volume 82.7 fL (80-97); Mean Platelet Volume 9.7 fL (7.5-11.2); Nucleated Red Blood Cells % 0.2 %/100WBC (0.0-0.8); Platelet Count 278 10^3/uL (150-450); Red Blood Count 5.99 10^6/uL (4.06-5.63); White Blood Count 9.8 10^3/uL (3.6-10.2)
[2023-04-04] MEDS ORDERED: Rocuronium 50 mg VIAL 10 mg/ml 5 ml VIAL (50 mg) IV ONE (17:36)
[2023-04-04] MEDS ORDERED: Etomidate 20 mg/10 ml 2 MG/ML 10 ml VIAL IV ONE (17:36)
[2023-04-04 17:40] LABS: PCO2 Arterial 42 mmHg (35-45); PO2 Arterial 341 mmHg (80-100)
[2023-04-04] MEDS ORDERED: Propofol 10 MG/ML 20 ML BTL IV PUSH ONE (18:09)
[2023-04-04] MEDS ORDERED: Cefepime ADVAN 1 GM in NS 0.9% 50 ML 50 ML IVPB SCH (18:30)
[2023-04-04] MEDS: Heparin 1,000 UNIT/ML 10 ml (10,000 UNITS) CATHLAB/DIALYSIS DIALYSIS PRN ×4 (19:35→22:27)
[2023-04-04] MEDS: Cefepime 1 GM in Dextrose 1 GM/50 ML BAG IV SCH (20:13)
[2023-04-04] MEDS ORDERED: fentaNYL 100 mcg/2 ml 50 MCG/ML VIAL ONE (20:54)
[2023-04-04] MEDS: fentaNYL 100 mcg/2 ml 50 MCG/ML VIAL IV SLOW PU PRN ×4 (20:55→23:15)
[2023-04-04] MEDS ORDERED: fentaNYL INFUSION 50 mcg/mL VL 2,500 MCG/50 ML VIAL IV SCH (22:00)
[2023-04-05] MEDS: fentaNYL 100 mcg/2 ml 50 MCG/ML VIAL IV SLOW PU PRN (00:29)
[2023-04-05] MEDS: Chlorhexidine MOUTHWASH 0.12% 15 ML UDC TOPICAL SCH ×6 (01:28→21:25)
[2023-04-05] MEDS: Pantoprazole VIAL 40 MG VIAL IV SCH (01:28)
[2023-04-05] MEDS: Cefepime 1 GM in Dextrose 1 GM/50 ML BAG IV SCH (01:45)
[2023-04-05] MEDS: Propofol 10 mg/ml 100 ML BTL 1,000 MG/100 ML BTL IV SCH ×6 (02:59→20:18)
[2023-04-05 03:56] LABS: ABS Basophils 0.1 10^3/uL (0.0-0.1); ABS Eosinophils 0.2 10^3/uL (0.0-0.5); ABS Lymphocytes 1.1 10^3/uL (1.0-4.8); ABS Monocytes 0.9 10^3/uL (0.0-1.1); ABS Neutrophils 5.5 10^3/uL (1.5-7.6); ABS Nucleated RBC 0.04 10^3/ul; Hematocrit 40.7 % (38-53); Hemoglobin 13.9 g/dL (13.2-16.3); Lymphocyte % 13.6 %; Mean Corpuscular Hemoglobin 27.8 pg (27-33); Mean Corpuscular Volume 81.8 fL (80-97); Mean Platelet Volume 8.8 fL (7.5-11.2); Nucleated Red Blood Cells % 0.6 %/100WBC (0.0-0.8); Platelet Count 203 10^3/uL (150-450); Red Blood Count 4.98 10^6/uL (4.06-5.63); White Blood Count 7.8 10^3/uL (3.6-10.2)
[2023-04-05 04:21] LABS: Creatinine, Serum 8.38 mg/dL (0.67-1.17); Magnesium 2.2 mg/dL (1.9-2.7); Potassium 4.3 mmol/L (3.5-5.0); eGFR CKD-EPI 7.1 (>60)
[2023-04-05] MEDS ORDERED: ZOSYN 3.375 GM x ONE DOSE over 30 miuntes IV (05:00)
[2023-04-05] MEDS ORDERED: Zosyn per Pharmacy NOTE FOLLOW UP SCH (05:00)
[2023-04-05] MEDS: Dextrose 50% Syringe 50 ml 25 GM/50 ML SYRINGE IV PUSH PRN ×2 (05:31→12:10)
[2023-04-05] MEDS: Heparin 5000 UNITS/ML 1 mL VIAL SUBCUT SCH ×2 (09:47→21:25)
[2023-04-05] MEDS: ZOSYN 3.375 GM Q12H per EXTENDED INFUSION IV SCH ×2 (09:50→21:24)
[2023-04-05] MEDS: Heparin 1,000 UNIT/ML 10 ml (10,000 UNITS) CATHLAB/DIALYSIS DIALYSIS PRN ×3 (16:40→18:40)
[2023-04-06] MEDS: Propofol 10 mg/ml 100 ML BTL 1,000 MG/100 ML BTL IV SCH ×3 (00:09→07:43)
[2023-04-06] MEDS: Chlorhexidine MOUTHWASH 0.12% 15 ML UDC TOPICAL SCH ×6 (00:58→21:43)
[2023-04-06] MEDS: Pantoprazole VIAL 40 MG VIAL IV SCH (00:58)
[2023-04-06] MEDS ORDERED: Vancomycin 1,000 MG in NS 0.9% 250 ml 250 ML IVPB ONE (02:58)
[2023-04-06] MEDS ORDERED: Vancomycin per Pharmacy 1 EA NOTE FOLLOW UP SCH (03:00)
[2023-04-06] MEDS ORDERED: Vancomycin 1,500 MG in NS 0.9% 250 ml 250 ML IVPB ONE (03:30)
[2023-04-06 05:53] LABS: Hematocrit 43.7 % (38-53); Hemoglobin 14.2 g/dL (13.2-16.3); Mean Corpuscular Hgb Conc 32.5 g/dL (31-36); Mean Corpuscular Volume 83.2 fL (80-97); Platelet Count 197 10^3/uL (150-450); Red Blood Count 5.26 10^6/uL (4.06-5.63); Red Cell Distribution Width 18.1 % (12-17); White Blood Count 14.2 10^3/uL (3.6-10.2)
[2023-04-06 05:57] LABS: Anion Gap 12 mmol/L (2-16); Blood Urea Nitrogen 28 mg/dL (6-24); CO2 Carbon Dioxide 23 mmol/L (22-32); Calcium 6.7 mg/dL (8.6-10.3); Chloride 100 mmol/L (101-111); Creatinine, Serum 6.13 mg/dL (0.67-1.17); Glucose 80 mg/dL (70-100); Magnesium 1.8 mg/dL (1.9-2.7); Sodium 135 mmol/L (135-145); eGFR CKD-EPI 10.3 (>60)
[2023-04-06] MEDS ORDERED: Vancomycin Random Level NOTE FOLLOW UP ONE (06:00)
[2023-04-06 06:22] LABS: ABS Basophils 0.1 10^3/uL (0.0-0.1); ABS Eosinophils 0.1 10^3/uL (0.0-0.5); ABS Lymphocytes 0.8 10^3/uL (1.0-4.8); ABS Monocytes 1.1 10^3/uL (0.0-1.1); ABS Neutrophils 12.1 10^3/uL (1.5-7.6); ABS Nucleated RBC 0.15 10^3/ul; Anisocytosis 1+; Eosinophil % 0.8 %; Lymphocyte % 5.4 %; Nucleated Red Blood Cells % 1.1 %/100WBC (0.0-0.8); Polychromasia 1+
[2023-04-06 06:30] LABS: Vancomycin Random 29.9 mcg/mL
[2023-04-06 06:41] LABS: Phosphorus 7.6 mg/dL (2.5-5.0); Potassium Redraw 4.7 mmol/L (3.5-5.0)
[2023-04-06] MEDS ORDERED: NS 0.9% 250 ml 250 ML IV ONE (07:35)
[2023-04-06] MEDS: Heparin 5000 UNITS/ML 1 mL VIAL SUBCUT SCH ×2 (08:58→21:42)
[2023-04-06] MEDS: cefTRIAXone 1 gm/50 mL D5W 1 GM/50 ML BAG IV SCH (08:58)
[2023-04-06] MEDS: Aspirin EC 81 mg TAB.EC (enteric coated) PO SCH (08:58)
[2023-04-06 11:17] LABS: PCO2 Arterial 37 mmHg (35-45); PO2 Arterial 82 mmHg (80-100)
[2023-04-06] MEDS ORDERED: NS 0.9% 500 ml BAG 500 ML IV ONE (14:21)
[2023-04-07] MEDS: Chlorhexidine MOUTHWASH 0.12% 15 ML UDC TOPICAL SCH ×6 (01:20→20:03)
[2023-04-07] MEDS: Pantoprazole VIAL 40 MG VIAL IV SCH (01:20)
[2023-04-07 05:27] LABS: ABS Basophils 0.1 10^3/uL (0.0-0.1); ABS Eosinophils 0.2 10^3/uL (0.0-0.5); ABS Monocytes 1.5 10^3/uL (0.0-1.1); ABS Nucleated RBC 0.07 10^3/ul; Eosinophil % 0.9 %; Hematocrit 42.6 % (38-53); Lymphocyte % 5.8 %; Mean Corpuscular Hemoglobin 27.3 pg (27-33); Mean Corpuscular Hgb Conc 32.9 g/dL (31-36); Mean Platelet Volume 8.5 fL (7.5-11.2); Nucleated Red Blood Cells % 0.4 %/100WBC (0.0-0.8); Platelet Count 213 10^3/uL (150-450); Red Blood Count 5.13 10^6/uL (4.06-5.63); Red Cell Distribution Width 17.9 % (12-17); White Blood Count 17.8 10^3/uL (3.6-10.2)
[2023-04-07 05:41] LABS: Creatinine, Serum 8.72 mg/dL (0.67-1.17); Magnesium 1.9 mg/dL (1.9-2.7); Potassium 5.1 mmol/L (3.5-5.0); eGFR CKD-EPI 6.7 (>60)
[2023-04-07] MEDS ORDERED: Vancomycin Random Level NOTE FOLLOW UP ONE (06:00)
[2023-04-07 06:01] LABS: Vancomycin Random 12.3 mcg/mL
[2023-04-07] MEDS: Heparin 5000 UNITS/ML 1 mL VIAL SUBCUT SCH ×2 (10:05→20:08)
[2023-04-07] MEDS: Aspirin EC 81 mg TAB.EC (enteric coated) PO SCH (10:05)
[2023-04-07] MEDS: cefTRIAXone 1 gm/50 mL D5W 1 GM/50 ML BAG IV SCH (10:05)
[2023-04-07] MEDS: Heparin 1,000 UNIT/ML 10 ml (10,000 UNITS) CATHLAB/DIALYSIS DIALYSIS PRN ×3 (14:30→16:34)
[2023-04-07] MEDS ORDERED: Vancomycin 750 MG in NS 0.9% 250 ML IVPB ONE (16:00)
[2023-04-07] MEDS ORDERED: Thiamine 100 MG/ML 2 ml VIAL (200 mg) IV ONE (18:21)
[2023-04-07] MEDS ORDERED: Cyanocobalamin INJ 1,000 MCG/ML VIAL 1 ML VIAL IM ONE (18:22)
[2023-04-07 18:54] LABS: C Reactive Protein 291.26 mg/L (<8.01)
[2023-04-07] MEDS ORDERED: Thiamine IV 100 MG in NS 0.9% 50 ML Q24H IV ONE (19:00)
[2023-04-07 19:47] LABS: TSH Ultra Thyroid Stim Horm 1.24 mcIU/mL (0.34-5.60)
[2023-04-07 19:58] LABS: Vitamin B12 > 1450 pg/mL (180-914)
[2023-04-08] MEDS: Chlorhexidine MOUTHWASH 0.12% 15 ML UDC TOPICAL SCH ×6 (01:06→19:41)
[2023-04-08] MEDS: Pantoprazole VIAL 40 MG VIAL IV SCH (01:06)
[2023-04-08 04:23] LABS: ABS Basophils 0.1 10^3/uL (0.0-0.1); ABS Eosinophils 0.2 10^3/uL (0.0-0.5); ABS Lymphocytes 0.9 10^3/uL (1.0-4.8); ABS Monocytes 1.3 10^3/uL (0.0-1.1); ABS Neutrophils 12.5 10^3/uL (1.5-7.6); ABS Nucleated RBC 0.02 10^3/ul; Eosinophil % 1.1 %; Hematocrit 43.1 % (38-53); Hemoglobin 14.4 g/dL (13.2-16.3); Lymphocyte % 5.7 %; Mean Corpuscular Hemoglobin 27.5 pg (27-33); Mean Corpuscular Hgb Conc 33.3 g/dL (31-36); Mean Corpuscular Volume 82.6 fL (80-97); Mean Platelet Volume 9.1 fL (7.5-11.2); Nucleated Red Blood Cells % 0.1 %/100WBC (0.0-0.8); Platelet Count 236 10^3/uL (150-450); Red Blood Count 5.22 10^6/uL (4.06-5.63); Red Cell Distribution Width 17.8 % (12-17); White Blood Count 14.9 10^3/uL (3.6-10.2)
[2023-04-08 04:38] LABS: Creatinine, Serum 5.9 mg/dL (0.67-1.17); Magnesium 1.9 mg/dL (1.9-2.7); Potassium 4.4 mmol/L (3.5-5.0); eGFR CKD-EPI 10.8 (>60)
[2023-04-08 04:56] LABS: Vancomycin Random 17.8 mcg/mL
[2023-04-08] MEDS ORDERED: Vancomycin Random Level NOTE FOLLOW UP ONE (06:00)
[2023-04-08] MEDS ORDERED: Naloxone 0.4 mg VIAL 0.4 mg/ml 1 ml VIAL ONE (07:45)
[2023-04-08] MEDS ORDERED: Midazolam 5 mg/5 ml VIAL 1 mg/ml 5 ml VIAL (5 mg) ONE (07:45)
[2023-04-08] MEDS ORDERED: Flumazenil 0.5 mg/5 ml 0.1 MG/ML 5 ml VIAL ONE (07:45)
[2023-04-08] MEDS ORDERED: fentaNYL 100 mcg/2 ml 50 MCG/ML VIAL ONE (07:45)
[2023-04-08] MEDS: cefTRIAXone 1 gm/50 mL D5W 1 GM/50 ML BAG IV SCH ×2 (11:05→21:30)
[2023-04-08] MEDS: Heparin 5000 UNITS/ML 1 mL VIAL SUBCUT SCH ×2 (11:05→19:41)
[2023-04-08 11:43] LABS: INR 1.1 (0.83-1.13)
[2023-04-08 18:27] LABS: Body Fluid Source Cerebral Spinal
[2023-04-08 18:47] LABS: CSF Glucose 70 mg/dL (40-70)
[2023-04-08 19:12] LABS: Body Fluid Appearance Clear; Body Fluid Color Colorless
[2023-04-08 19:13] LABS: CSF Tube # 3
[2023-04-08 19:20] LABS: CSF Body Fluid WBC 0 /mcL
[2023-04-08 19:29] LABS: Body Fluid Total Cells Counted 12
[2023-04-09] MEDS: Pantoprazole VIAL 40 MG VIAL IV SCH (00:01)
[2023-04-09] MEDS: Chlorhexidine MOUTHWASH 0.12% 15 ML UDC TOPICAL SCH ×6 (00:01→23:24)
[2023-04-09 04:50] LABS: ABS Basophils 0.1 10^3/uL (0.0-0.1); ABS Eosinophils 0.2 10^3/uL (0.0-0.5); ABS Lymphocytes 0.8 10^3/uL (1.0-4.8); ABS Monocytes 1.2 10^3/uL (0.0-1.1); ABS Neutrophils 9.8 10^3/uL (1.5-7.6); ABS Nucleated RBC 0.01 10^3/ul; Eosinophil % 1.8 %; Hematocrit 41.4 % (38-53); Hemoglobin 13.8 g/dL (13.2-16.3); Lymphocyte % 6.8 %; Mean Corpuscular Hemoglobin 27.6 pg (27-33); Mean Corpuscular Hgb Conc 33.3 g/dL (31-36); Mean Corpuscular Volume 82.8 fL (80-97); Mean Platelet Volume 8.5 fL (7.5-11.2); Nucleated Red Blood Cells % 0.1 %/100WBC (0.0-0.8); Platelet Count 229 10^3/uL (150-450); Red Cell Distribution Width 17.6 % (12-17); White Blood Count 12.1 10^3/uL (3.6-10.2)
[2023-04-09 05:07] LABS: ALT 24 U/L (7-52); AST 86 U/L (13-39); Albumin 2.4 g/dL (3.2-5.2); Albumin/Globulin Ratio 0.6 (1-3); Alkaline Phosphatase 94 U/L (35-149); Anion Gap 15 mmol/L (2-16); Blood Urea Nitrogen 40 mg/dL (6-24); CO2 Carbon Dioxide 23 mmol/L (22-32); Calcium 7.6 mg/dL (8.6-10.3); Chloride 98 mmol/L (101-111); Creatinine, Serum 7.76 mg/dL (0.67-1.17); Globulin 3.7 g/dL (2-4); Glucose 120 mg/dL (70-100); Potassium 4.4 mmol/L (3.5-5.0); Sodium 136 mmol/L (135-145); Total Bilirubin 4.1 mg/dL (0.2-1.0); Total Protein 6.1 g/dL (6.4-8.9); eGFR CKD-EPI 7.7 (>60)
[2023-04-09 05:37] LABS: Vancomycin Random 16.3 mcg/mL
[2023-04-09] MEDS ORDERED: Vancomycin Random Level NOTE FOLLOW UP ONE (06:00)
[2023-04-09] MEDS: Heparin 1,000 UNIT/ML 10 ml (10,000 UNITS) CATHLAB/DIALYSIS DIALYSIS PRN ×2 (07:25→08:25)
[2023-04-09] MEDS: cefTRIAXone 1 gm/50 mL D5W 1 GM/50 ML BAG IV SCH ×2 (07:28→09:53)
[2023-04-09] MEDS: Heparin 5000 UNITS/ML 1 mL VIAL SUBCUT SCH ×2 (08:21→23:23)
[2023-04-09] MEDS ORDERED: Vancomycin 750 MG in NS 0.9% 250 ML IVPB ONE (13:00)
[2023-04-09 18:55] LABS: Immature Retic Fraction 0.45
[2023-04-09 19:22] LABS: Direct Bilirubin 2.8 mg/dL (0.03-0.18); Indirect Bilirubin 1.2 mg/dL (0.3-1.0)
[2023-04-09 19:25] LABS: Corrected Retic Count 2.2 % (0.5-1.5); Hematocrit for Retic CNT 43.7 % (38-53)
[2023-04-10] MEDS: Pantoprazole VIAL 40 MG VIAL IV SCH (01:00)
[2023-04-10] MEDS: Chlorhexidine MOUTHWASH 0.12% 15 ML UDC TOPICAL SCH ×6 (01:00→20:38)
[2023-04-10 05:05] LABS: ABS Basophils 0.1 10^3/uL (0.0-0.1); ABS Eosinophils 0.2 10^3/uL (0.0-0.5); ABS Lymphocytes 0.9 10^3/uL (1.0-4.8); ABS Monocytes 1.4 10^3/uL (0.0-1.1); ABS Neutrophils 8.8 10^3/uL (1.5-7.6); ABS Nucleated RBC 0.01 10^3/ul; Eosinophil % 1.5 %; Hematocrit 42.8 % (38-53); Hemoglobin 14.2 g/dL (13.2-16.3); Lymphocyte % 7.9 %; Mean Corpuscular Hemoglobin 27.2 pg (27-33); Mean Corpuscular Hgb Conc 33.3 g/dL (31-36); Mean Corpuscular Volume 81.8 fL (80-97); Mean Platelet Volume 8.4 fL (7.5-11.2); Nucleated Red Blood Cells % 0.1 %/100WBC (0.0-0.8); Platelet Count 217 10^3/uL (150-450); Red Blood Count 5.23 10^6/uL (4.06-5.63); Red Cell Distribution Width 17.5 % (12-17); White Blood Count 11.4 10^3/uL (3.6-10.2)
[2023-04-10 05:21] LABS: Albumin 2.5 g/dL (3.2-5.2); Albumin/Globulin Ratio 0.6 (1-3); C Reactive Protein 228.97 mg/L (<8.01); Calcium 7.8 mg/dL (8.6-10.3); Creatinine, Serum 6.18 mg/dL (0.67-1.17); Globulin 4.2 g/dL (2-4); Total Bilirubin 3.8 mg/dL (0.2-1.0); Total Protein 6.7 g/dL (6.4-8.9); eGFR CKD-EPI 10.2 (>60)
[2023-04-11] MEDS: Chlorhexidine MOUTHWASH 0.12% 15 ML UDC TOPICAL SCH ×5 (00:49→20:19)
[2023-04-11] MEDS: Pantoprazole VIAL 40 MG VIAL IV SCH (00:49)
[2023-04-11] MEDS ORDERED: Vancomycin Random Level NOTE FOLLOW UP ONE (06:00)
[2023-04-11] MEDS ORDERED: LORazepam 2 mg VIAL 1 ml IV PUSH PRN (17:25)
[2023-04-11] MEDS ORDERED: Atropine 1% (ORAL/SL) 15 ML BTL SL PRN (17:25)
[2023-04-11] MEDS ORDERED: Lorazepam PYXIS KEY PRN (17:37)
[2023-04-11] MEDS: HYDROmorphone 0.5 MG/0.5 ML SYRINGE IV SLOW PU PRN ×2 (18:00→19:28)
[2023-04-11 19:06] LABS: B. burgdorferi PCR Negative (Negative); B. garinii/B. afzellii PCR Negative (Negative); Lyme Disease Source CSF
[2023-04-11 19:14] VITALS: BP 111/69
== END 2023-04-11 20:04 | disposition expired | DRG 640 ==
LOC: ED 14:02 → EDHOLD 17:32 → SUATTDRO 17:32 → ICU 18:07
PROVIDERS: ADMIT Student in an Organized Health Care Education/Training Program; ATTEND Internal Medicine Pulmonary Disease